=== PATIENT | female | born 1960 | race Caucasian/White ===

== ENCOUNTER 2018-08-05 16:17 | Outpatient (CLI) | payer OTHER, SELFPAY ==
[2018-08-05 18:17] LABS: CREATININE 0.98 mg/dL (0.55-1.02); Estimated GFR 58.71 (mL/min/1.73m2)
== END 2018-08-05 16:37 ==
PROVIDERS: PCP Nurse Practitioner Adult Health; Visit Provider Optometrist
DX: H57.8 Other specified disorders of eye and adnexa (principal)
CPT/HCPCS: 36415; 82565

== ENCOUNTER 2018-08-10 01:15 | Outpatient (CLI) | payer OTHER, SELFPAY ==
[2018-08-10] MEDS: Gadoterate meglumine 20 ML VIAL 19 ML IVP (09:10)
--- NOTE | 2018-08-10 09:40 | DI.MRI_ITS ---
SYMPTOM/DIAGNOSIS: VISUAL ACUITY, MARKED PROGRESSION VISUAL FIELD DEFECTS BRAIN AND ORBITAL MRI: High resolution multi planar imaging of the orbit was obtained and post contrast axial and coronal imaging was obtained along with high resolution sagittal, axial and coronal imaging of the orbital/sellar region. There is a lobulated mass which appears to arise in the region of the sella and which expands into the suprasellar region as well as into the sphenoid sinus. The mass measures approximately 39 by 34 by 37 mm. The mass is heterogeneous in appearance on T 2 and T 1 weighted imaging and enhances heterogeneously. The borders of the mass are fairly distinct although lobulated. The mass appears to significantly distort the region of the optic chiasm. No gross abnormality of the [place] vasculature flow void is seen. The orbits and orbital contents per say appear intact with no enhancing lesion seen. No enhancing lesion identified in the brain parenchyma. There is an apparent old infarction of the ster[place] just to the right of midline measuring about 5 mm. in diameter. Diffusion weighted imaging susceptibility weighted imaging is within normal limits. The temporal bone structures appear intact. No significant additional signal abnormality identified in the brain apart from apparent tiny bilateral lacunar infarcts. CONCLUSION: Large sellar mass extending into suprasellar region and sphenoid measuring up to about 39 mm. in diameter. 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 Other etiologies including atypical meningioma, metastasis, or craniopharyngioma not entirely excluded.
== END 2018-08-10 01:35 ==
PROVIDERS: PCP Nurse Practitioner Adult Health; Visit Provider Optometrist
DX: H53.40 Unspecified visual field defects (principal); H53.8 Other visual disturbances; G93.89 Other specified disorders of brain; D35.2 Benign neoplasm of pituitary gland
CPT/HCPCS: 70553; 70543

== ENCOUNTER 2018-08-11 08:38 | Outpatient (CLI) | payer OTHER, SELFPAY ==
[2018-08-11 10:30] LABS: FREE T4 0.73 ng/dL (0.76-1.46); TSH 3.86 uIU/mL (0.358-3.74)
[2018-08-11 22:41] LABS: Estradiol 105 pg/ml
[2018-08-12 10:09] LABS: FSH 30.1 mIU/ml
[2018-08-12 10:24] LABS: LH 7.9 mIU/ml
[2018-08-12 10:26] LABS: Prolactin 19.7 ng/ml
[2018-08-12 16:06] LABS: Growth Hormone 0.14 ng/mL
[2018-08-12 17:12] LABS: Adrenocorticotropic Hormone, P 9.9 pg/mL
[2018-08-18 09:30] LABS: IGF-1, LC/MS, S 126 ng/mL (37-208); Z-score 0.67 SD
== END 2018-08-11 08:58 ==
PROVIDERS: PCP Nurse Practitioner Adult Health; Visit Provider Neurological Surgery
DX: D35.2 Benign neoplasm of pituitary gland (principal)
CPT/HCPCS: 36415; 82533; 82024; 82670; 83001; 83002; 83003; 84146; 84305; 84439; 84443

== ENCOUNTER 2018-08-30 09:21 | Outpatient (CLI) | payer OTHER, SELFPAY ==
[2018-08-30 10:09] LABS: Sodium 139 mmol/L (136-145)
== END 2018-08-30 09:41 ==
PROVIDERS: PCP Nurse Practitioner Adult Health; Visit Provider Neurological Surgery
DX: D35.2 Benign neoplasm of pituitary gland (principal)
CPT/HCPCS: 36415; 84295

== ENCOUNTER 2018-09-02 21:36 | Emergency (ER) | payer OTHER, SELFPAY ==
[2018-09-02] VITALS (13 sets, daily range): BP systolic 152–228; BP diastolic 86–118; PULSE 72–97; RESP 16–26; TEMP 36.8–37.2; O2SAT 100
[2018-09-02 22:16] LABS: Abs Immature Grans 0.05 k/cumm (0.0-0.09); Absolute Lymphocyte Count 2.11 k/cumm (1.2-3.4); Basophils % 0.8; Eosinophils % 2.6; HCT 40.8 % (36.0-46.0); HGB 13.3 g/dL (12.0-15.5); Immature Grans % 0.4; Lymphocytes % 16.9; Mean Corp. HGB Concentration 32.6 g/dL (32.0-36.0); Mean Corpuscular Hemoglobin 28.6 pg (27.0-33.0); Mean Corpuscular Volume 87.7 fL (80-95); Mean Platelet Volume 10.4 fL (8.0-11.0); Monocytes % 6.6; Neutrophils % 72.7; Platelet Count 368 x1000/uL (130-400); RBC 4.65 m/cumm (4.00-5.20); RBC Distribution Width 13.8 % (11.7-14.6); White Blood Cell Count 12.51 k/cumm (4.4-10.8)
[2018-09-02 22:17] LABS: Absolute Eosinophil Count 0.33 k/cumm (0.0-0.7); Absolute Monocyte Count 0.83 k/cumm (0.11-0.7); Absolute Neutrophil Count 9.09 k/cumm (1.2-6.7)
[2018-09-02] MEDS: Labetalol 100 MG/20 ML VIAL 10 MG IVP (22:20)
[2018-09-02] MEDS: Oxymetazolone 0.05% SPRAY 15 ML BTL NS (22:21)
--- NOTE | 2018-09-02 22:26 | W.ED.GENAD ---
Discharge Plan Disposition Patient Disposition: HOME Condition: Good Discharge Details Chief Complaint: Epistaxis Clinical Impression: Acute anterior epistaxis Primary Care Provider: Marj Martinez ED Provider: Fortino Hurtado Home Meds and New Rx's Prescriptions: New amoxicillin-pot clavulanate [Augmentin] 875-125 mg tablet 1 tab PO BID Qty: 14 RF: 0 No Action multivitamin [Daily Vitamin] 1 EACH tablet 1 ea PO DAILY RF: 0 blood sugar diagnostic [Blood Glucose Test] 1 EACH strip 1 ea Miscellaneous AC & HS Qty: 300 RF: 3 lancets [FreeStyle Lancets] 1 EACH misc 1 ea Miscellaneous DAILY Qty: 100 RF: 0 CBD 10 mg PO d RF: 0 naproxen sodium [Aleve] 220 MG tablet 440 mg PO Q12H PRN RF: 0 losartan 50 MG tablet 50 mg PO DAILY Qty: 90 RF: 3 rosuvastatin [Crestor] 40 MG tablet 40 mg PO DAILY Qty: 90 RF: 3 bimatoprost 0.03 % Drops 1 drp OPHTHALMIC (EYE) QPM RF: 0 pseudoephedrine HCl 30 mg Tablet 30 mg PO QID PRNRF: 0 gabapentin 100 mg Capsule 200 mg PO BID RF: 0 hydrocortisone 10 mg Tablet 10 mg PO BID RF: 0 sodium chloride 0.65 % Aerosol,[place] 1 spray INTRANASAL PRN PRNRF: 0 levothyroxine 75 mcg Capsule 75 mcg PO DAILY RF: 0 vqtdgfwirj-cxavgqixiregn-hiyx [Fioricet] 50-300-40 mg Capsule 1 cap PO Q4H PRNRF: 0 Discharge Instructions Instructions: Nosebleed (ED) Additional Instructions: Please take the antibiotic as directed. Do not blow your nose. Do not remove the packing. If you notice any return of your bleeding present return immediately. Please come back to the emergency department for reassessment tomorrow afternoon. Please follow-up with your neurosurgeons as soon as possible for reassessment. If you notice any worsening of your symptoms, or any new symptoms such as vomiting, diarrhea, fever, chills, shortness of breath, chest pain, numbness, weakness, or fainting , please return immediately to the emergency department for reevaluation. Please follow up with your primary care provider as soon as possible for reassessment and reevaluation. As always, it was a pleasure participating in your medical care today. Referrals: Marj Martinez, SENIOR CLIENT ADVISOR [Primary Care Provider] - Medical Decision Making This is a 58-year-old female who presents today for evaluation of nosebleed. She had a pituitary tumor removed on 08/24/18 at [facility]. At 10 AM today she sneezed and roughly 4 hours after this she had continued bleeding from the right nare. She is on no blood thinners. Physical exam demonstrates bleeding slightly superior, and mildly anterior. No bleeding at the more obvious anterior inferior component. Bleeding is mild but continuous. Minimal blood in the posterior oropharynx. She is notably hypertensive. This may be a contributing component. We will give 10 of labetalol to help reduce her current blood pressure. I did contact Dr. Combs, at his personal cell phone number of [phone], and he is the neurosurgeon insulation estimator at the location where her surgery was performed. We discussed Rhino Rocket versus alternative medical management, and at this time he recommends starting with our medical management which will be Afrin, and topical cocaine. We will reassess after placement of these medical adjuncts. 11:38 PM We utilized multiple attempts of Afrin and topical cocaine, however in spite of all this the patient had no resolution of her symptoms. We discussed the situation again with Dr. Combs and his next recommendation after consulting with his ENT specialist is a small Rhino Rocket placement. I have placed this successfully with the patient with no complications or pain. He was advanced without any difficulty. She now has resolution of her bleeding. At this time I feel that with resolution of her bleeding, normal labs, she is safe for discharge home. I have recommended close follow-up here tomorrow for reevaluation since it is the weekend she will not be able to follow-up with her specialist. We will give 1 dose of Augmentin here, as well as Augmentin for home use. We discussed red flags for which to return and the patient understands. I have extensively reviewed the treatment plan and discharge instructions with the patient. I have addressed all patient concerns at this time. The patient was made aware of what symptoms to monitor for that would warrant a return to the emergency department. Discussed the plan with the patient, they demonstrate verbal understanding and agreement with our assessment and plan at this time. HPI General Date/Time Provider Initiated Documentation: 10/12/18 21:54. HPI Narrative: This is a pleasant 58-year-old female with a past medical history of hypertension, hyperlipidemia, and a pituitary adenoma that was surgically excised at [facility] on 08/24/18. Since then she has been doing very well however at 10 AM this morning patient states that she had a strong sneeze, and roughly 1-2 hours after that she has had a mild but continued nosebleed. The nose is been bleeding for the past 8 hours. She has no associated headache, vision changes, neck pain, numbness, tingling, weakness, dysphasia, dysarthria, or other neurologic complaint or abnormality. She is not on any blood thinners. She denies any pain in her head, nose, or nares. She denies any previous significant nosebleeds. She has no other complaints at this time. Related Data Home Medications Medication Instructions Recorded Confirmed multivitamin [Daily Vitamin] 1 ea PO DAILY 01/20/13 09/02/18 blood sugar diagnostic [Glucose #300 strip 06/28/17 Test Strip] lancets [Freestyle Lancets] #100 ea 06/28/17 Cbd 10 mg PO d 04/08/18 naproxen sodium [Aleve] 440 mg PO Q12H PRN tab-cap 04/08/18 09/02/18 losartan 50 mg PO DAILY #90 tab 07/11/18 09/02/18 rosuvastatin [Crestor] 40 mg PO DAILY #90 tab-cap 07/11/18 09/02/18 amoxicillin-pot clavulanate 1 tab PO BID #14 tab 09/02/18 [Augmentin] bimatoprost 1 drp OPHTHALMIC (EYE) QPM 09/02/18 09/02/18 aofuuibzge-idfcbyvfyrwtp-cdps 1 cap PO Q4H PRN 09/02/18 09/02/18 [Fioricet] gabapentin 200 mg PO BID 09/02/18 09/02/18 hydrocortisone 10 mg PO BID 09/02/18 09/02/18 levothyroxine 75 mcg PO DAILY 09/02/18 09/02/18 pseudoephedrine HCl 30 mg PO QID PRN 09/02/18 09/02/18 sodium chloride 1 spray INTRANASAL PRN PRN 09/02/18 09/02/18 Previous Rx's Medication Instructions Recorded losartan 50 mg PO DAILY #90 tab 07/11/18 rosuvastatin [Crestor] 40 mg PO DAILY #90 tab-cap 07/11/18 amoxicillin-pot clavulanate 1 tab PO BID #14 tab 09/02/18 [Augmentin] Allergies Allergy/AdvReac Type Severity Reaction Status Date / Time latex Allergy Mild Itching Unverified 09/02/18 21:49 lisinopril AdvReac Mild COUGH Unverified 09/02/18 21:49 atorvastatin AdvReac myalgias Unverified 09/02/18 21:49 General Stated Complaint: Epistaxis BRAD: 3 Review of Systems Review of Systems All systems reviewed & are unremarkable except as noted in HPI and below PFSH Family History Mother Hypertensive disorder, systemic arterial Diabetes Mental disorder Father No problems noted. Brother Personal history of malignant neoplasm Heart disease Grandfather No problems noted. Grandmother No problems noted. Paternal Grandmother No problems noted. Paternal Grandfather No problems noted. 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 Exam Narrative Exam Narrative: 1.Const: Well-nourished, Well-developed, appearing stated age 2.Eyes: PERRL, no conjunctival injection, and symmetrical lids. 3.ENT: Atraumatic external nose and ears. Moist MM. Neck: Symmetric, trachea midline, No thyromegaly. Patient's right nare demonstrates evidence of mild bleeding. No severe bleed at the anterior inferior aspect, some bleeding noted slightly superior, with minimal blood noted in the posterior oropharynx. Bleeding is mild at best, no significant or tao hemorrhage. No evidence of significant nasal abnormality otherwise aside for normals postsurgical changes. No hemotympanum. 4.CVS: +S1/S2, No murmurs or gallops. Peripheral pulses 2+ and equal in all extremities. Brisk capillary refill in all extremities. 5.RESP: Unlabored respiratory effort. Clear to auscultation bilaterally. No wheezes rales or rhonchi 6.GI: Soft, Nontender/Nondistended, No hepatosplenomegaly. No guarding or rebound. 7.MSK: Normocephalic/Atraumatic, Extremities w/o deformity or ttp No cyanosis or clubbing, Normal movement of all extremities 8.Skin: Warm, Dry. No rashes or lesions. 9.Neuro: four roll calender operator II-XII grossly intact. Sensation grossly intact, no focal neurologic deficits. No visual deficits, flores of vision, planes of are all intact. 10.Psych: (AAO) x3. Appropriate mood and affect Course Vital Signs Temperature 36.8 C 09/02/18 21:43 Pulse 97 H 09/02/18 21:43 Respiratory Rate 24 09/02/18 21:43 Blood Pressure 228/118 H 09/02/18 21:43 Pulse Oximetry 100 09/02/18 21:43 Temperature 36.8 C 09/02/18 21:43 Temperature Source Skin 09/02/18 21:43 Pulse 78 09/02/18 22:20 Respiratory Rate 24 09/02/18 21:43 Respiratory Effort Non-Labored 09/02/18 21:49 Blood Pressure 228/118 H 09/02/18 21:43 Blood Pressure Position Sitting 09/02/18 21:43 Pulse Oximetry 100 09/02/18 21:43 Oxygen Delivery Method Room Air 09/02/18 21:43 Oxygen Flow Rate 0 09/02/18 21:43 Lab/Test Results Lab/Test Results: Laboratory Tests Range/Units 09/02/18 22:10 WBC (4.4-10.8) k/cumm 12.51 H RBC (4.00-5.20) m/cumm 4.65 Hgb (12.0-15.5) g/dL 13.3 Hct (36.0-46.0) % 40.8 MCV (80-95) fL 87.7 MCH (27.0-33.0) pg 28.6 MCHC (32.0-36.0) g/dL 32.6 RDW (11.7-14.6) % 13.8 Plt Count (130-400) x1000/uL 368 MPV (8.0-11.0) fL 10.4 Immature Gran % 0.4 Neutrophils % 72.7 Lymphocytes % 16.9 Monocytes % 6.6 Eosinophils % 2.6 Basophils % 0.8 Absolute Neutrophils (1.2-6.7) k/cumm 9.09 H Absolute Lymphocytes (1.2-3.4) k/cumm 2.11 Absolute Monocytes (0.11-0.7) k/cumm 0.83 H Absolute Eosinophils (0.0-0.7) k/cumm 0.33 Absolute Basophils (0.0-0.2) k/cumm 0.10
[2018-09-02 22:29] LABS: Prothrombin Time 9.5 sec (9.3-10.8)
--- NOTE | 2018-09-02 22:32 | ED.GENADUL_ITS ---
Discharge Plan Disposition Patient Disposition: HOME Condition: Good Discharge Details Chief Complaint: Epistaxis Clinical Impression: Acute anterior epistaxis Primary Care Provider: Marj Martinez ED Provider: Fortino Hurtado Home Meds and New Rx's Prescriptions: New amoxicillin-pot clavulanate [Augmentin] 875-125 mg tablet 1 tab PO BID Qty: 14 RF: 0 No Action multivitamin [Daily Vitamin] 1 EACH tablet 1 ea PO DAILY RF: 0 blood sugar diagnostic [Blood Glucose Test] 1 EACH strip 1 ea Miscellaneous AC & HS Qty: 300 RF: 3 lancets [FreeStyle Lancets] 1 EACH misc 1 ea Miscellaneous DAILY Qty: 100 RF: 0 CBD 10 mg PO d RF: 0 naproxen sodium [Aleve] 220 MG tablet 440 mg PO Q12H PRN RF: 0 losartan 50 MG tablet 50 mg PO DAILY Qty: 90 RF: 3 rosuvastatin [Crestor] 40 MG tablet 40 mg PO DAILY Qty: 90 RF: 3 bimatoprost 0.03 % Drops 1 drp OPHTHALMIC (EYE) QPM RF: 0 pseudoephedrine HCl 30 mg Tablet 30 mg PO QID PRNRF: 0 gabapentin 100 mg Capsule 200 mg PO BID RF: 0 hydrocortisone 10 mg Tablet 10 mg PO BID RF: 0 sodium chloride 0.65 % Aerosol,[place] 1 spray INTRANASAL PRN PRNRF: 0 levothyroxine 75 mcg Capsule 75 mcg PO DAILY RF: 0 efizbpassv-udwwtteoitjrn-hccg [Fioricet] 50-300-40 mg Capsule 1 cap PO Q4H PRNRF: 0 Discharge Instructions Instructions: Nosebleed (ED) Additional Instructions: Please take the antibiotic as directed. Do not blow your nose. Do not remove the packing. If you notice any return of your bleeding present return immediately. Please come back to the emergency department for reassessment tomorrow afternoon. Please follow-up with your neurosurgeons as soon as possible for reassessment. If you notice any worsening of your symptoms, or any new symptoms such as vomiting, diarrhea, fever, chills, shortness of breath , chest pain, numbness, weakness, or fainting , please return immediately to the emergency department for reevaluation. Please follow up with your primary care provider as soon as possible for reassessment and reevaluation. As always, it was a pleasure participating in your medical care today. Referrals: Marj Martinez, SCHEME TECHNICIAN [Primary Care Provider] - Medical Decision Making This is a 58-year-old female who presents today for evaluation of nosebleed. She had a pituitary tumor removed on 08/24/18 at [facility]. At 10 AM today she sneezed and roughly 4 hours after this she had continued bleeding from the right nare. She is on no blood thinners. Physical exam demonstrates bleeding slightly superior, and mildly anterior. No bleeding at the more obvious anterior inferior component. Bleeding is mild but continuous. Minimal blood in the posterior oropharynx. She is notably hypertensive. This may be a contributing component. We will give 10 of labetalol to help reduce her current blood pressure. I did contact Dr. Combs, at his personal cell phone number of [phone], and he is the neurosurgeon street contractor at the location where her surgery was performed. We discussed Rhino Rocket versus alternative medical management, and at this time he recommends starting with our medical management which will be Afrin, and topical cocaine. We will reassess after placement of these medical adjuncts. 11:38 PM We utilized multiple attempts of Afrin and topical cocaine, however in spite of all this the patient had no resolution of her symptoms. We discussed the situation again with Dr. Combs and his next recommendation after consulting with his ENT specialist is a small Rhino Rocket placement. I have placed this successfully with the patient with no complications or pain. He was advanced without any difficulty. She now has resolution of her bleeding. At this time I feel that with resolution of her bleeding, normal labs, she is safe for discharge home. I have recommended close follow-up here tomorrow for reevaluation since it is the weekend she will not be able to follow-up with her specialist. We will give 1 dose of Augmentin here, as well as Augmentin for home use. We discussed red flags for which to return and the patient understands. I have extensively reviewed the treatment plan and discharge instructions with the patient. I have addressed all patient concerns at this time. The patient was made aware of what symptoms to monitor for that would warrant a return to the emergency department. Discussed the plan with the patient, they demonstrate verbal understanding and agreement with our assessment and plan at this time. HPI General Date/Time Provider Initiated Documentation: 10/12/18 21:54 . HPI Narrative: This is a pleasant 58-year-old female with a past medical history of hypertension, hyperlipidemia, and a pituitary adenoma that was surgically excised at [facility] on 08/24/18. Since then she has been doing very well however at 10 AM this morning patient states that she had a strong sneeze, and roughly 1-2 hours after that she has had a mild but continued nosebleed. The nose is been bleeding for the past 8 hours. She has no associated headache, vision changes, neck pain, numbness, tingling, weakness , dysphasia, dysarthria, or other neurologic complaint or abnormality. She is not on any blood thinners. She denies any pain in her head, nose, or nares. She denies any previous significant nosebleeds. She has no other complaints at this time. Related Data Home Medications Medication Instructions Recorded Confirmed multivitamin [Daily Vitamin] 1 ea PO DAILY 01/20/13 09/02/18 blood sugar diagnostic [Glucose #300 strip 06/28/17 Test Strip] lancets [Freestyle Lancets] #100 ea 06/28/17 Cbd 10 mg PO d 04/08/18 naproxen sodium [Aleve] 440 mg PO Q12H PRN tab-cap 04/08/18 09/02/18 losartan 50 mg PO DAILY #90 tab 07/11/18 09/02/18 rosuvastatin [Crestor] 40 mg PO DAILY #90 tab-cap 07/11/18 09/02/18 amoxicillin-pot clavulanate 1 tab PO BID #14 tab 09/02/18 [Augmentin] bimatoprost 1 drp OPHTHALMIC (EYE) QPM 09/02/18 09/02/18 vtsojqabfu-bujwxztowhaoz-xijx 1 cap PO Q4H PRN 09/02/18 09/02/18 [Fioricet] gabapentin 200 mg PO BID 09/02/18 09/02/18 hydrocortisone 10 mg PO BID 09/02/18 09/02/18 levothyroxine 75 mcg PO DAILY 09/02/18 09/02/18 pseudoephedrine HCl 30 mg PO QID PRN 09/02/18 09/02/18 sodium chloride 1 spray INTRANASAL PRN PRN 09/02/18 09/02/18 Previous Rx's Medication Instructions Recorded losartan 50 mg PO DAILY #90 tab 07/11/18 rosuvastatin [Crestor] 40 mg PO DAILY #90 tab-cap 07/11/18 amoxicillin-pot clavulanate 1 tab PO BID #14 tab 09/02/18 [Augmentin] Allergies Allergy/AdvReac Type Severity Reaction Status Date / Time latex Allergy Mild Itching Unverified 09/02/18 21:49 lisinopril AdvReac Mild COUGH Unverified 09/02/18 21:49 atorvastatin AdvReac myalgias Unverified 09/02/18 21:49 General Stated Complaint: Epistaxis BRAD: 3 Review of Systems Review of Systems All systems reviewed & are unremarkable except as noted in HPI and below PFSH Family History Mother Hypertensive disorder, systemic arterial Diabetes Mental disorder Father No problems noted. Brother Personal history of malignant neoplasm Heart disease Grandfather No problems noted. Grandmother No problems noted. Paternal Grandmother No problems noted. Paternal Grandfather No problems noted. 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 Exam Narrative Exam Narrative: 1.Const: Well-nourished, Well-developed, appearing stated age 2.Eyes: PERRL, no conjunctival injection, and symmetrical lids. 3.ENT: Atraumatic external nose and ears. Moist MM. Neck: Symmetric, trachea midline, No thyromegaly. Patient's right nare demonstrates evidence of mild bleeding. No severe bleed at the anterior inferior aspect, some bleeding noted slightly superior, with minimal blood noted in the posterior oropharynx. Bleeding is mild at best, no significant or tao hemorrhage. No evidence of significant nasal abnormality otherwise aside for normals postsurgical changes. No hemotympanum. 4.CVS: +S1/S2, No murmurs or gallops. Peripheral pulses 2+ and equal in all extremities. Brisk capillary refill in all extremities. 5.RESP: Unlabored respiratory effort. Clear to auscultation bilaterally. No wheezes rales or rhonchi 6.GI: Soft, Nontender/Nondistended, No hepatosplenomegaly. No guarding or rebound. 7.MSK: Normocephalic/Atraumatic, Extremities w/o deformity or ttp No cyanosis or clubbing, Normal movement of all extremities 8.Skin: Warm, Dry. No rashes or lesions. 9.Neuro: orthotist II-XII grossly intact. Sensation grossly intact, no focal neurologic deficits. No visual deficits, flores of vision, planes of are all intact. 10.Psych: (AAO) x3. Appropriate mood and affect Course Vital Signs Temperature 36.8 C 09/02/18 21:43 Pulse 97 H 09/02/18 21:43 Respiratory Rate 24 09/02/18 21:43 Blood Pressure 228/118 H 09/02/18 21:43 Pulse Oximetry 100 09/02/18 21:43 Temperature 36.8 C 09/02/18 21:43 Temperature Source Skin 09/02/18 21:43 Pulse 78 09/02/18 22:20 Respiratory Rate 24 09/02/18 21:43 Respiratory Effort Non-Labored 09/02/18 21:49 Blood Pressure 228/118 H 09/02/18 21:43 Blood Pressure Position Sitting 09/02/18 21:43 Pulse Oximetry 100 09/02/18 21:43 Oxygen Delivery Method Room Air 09/02/18 21:43 Oxygen Flow Rate 0 09/02/18 21:43 Lab/Test Results Lab/Test Results: Laboratory Tests Range/Units 09/02/18 22:10 WBC (4.4-10.8) k/cumm 12.51 H RBC (4.00-5.20) m/cumm 4.65 Hgb (12.0-15.5) g/dL 13.3 Hct (36.0-46.0) % 40.8 MCV (80-95) fL 87.7 MCH (27.0-33.0) pg 28.6 MCHC (32.0-36.0) g/dL 32.6 RDW (11.7-14.6) % 13.8 Plt Count (130-400) x1000/uL 368 MPV (8.0-11.0) fL 10.4 Immature Gran % 0.4 Neutrophils % 72.7 Lymphocytes % 16.9 Monocytes % 6.6 Eosinophils % 2.6 Basophils % 0.8 Absolute Neutrophils (1.2-6.7) k/cumm 9.09 H Absolute Lymphocytes (1.2-3.4) k/cumm 2.11 Absolute Monocytes (0.11-0.7) k/cumm 0.83 H Absolute Eosinophils (0.0-0.7) k/cumm 0.33 Absolute Basophils (0.0-0.2) k/cumm 0.10
[2018-09-02 22:43] LABS: ALT 20 U/L (12-78); AST 17 U/L (15-37); Albumin 3.9 g/dL (3.4-5.0); Alkaline Phosphatase 168 U/L (46-116); Anion Gap 10.8 mmol/L (3-11); BUN 21 mg/dL (7-18); Bilirubin, Total 0.2 mg/dL (0.2-1.0); CO2 30.2 mmol/L (21.0-32.0); Calcium 9.4 mg/dL (8.5-10.1); Chloride 99 mmol/L (98-107); Glucose 169 mg/dL (70-100); Potassium 3.9 mmol/L (3.5-5.1); Sodium 140 mmol/L (136-145); Total Protein 8.5 g/dL (6.4-8.2)
[2018-09-02] MEDS: Amoxicillin 875/Clav. 125 TAB PO (23:48)
== END 2018-09-03 00:01 | disposition home or self-care (01) ==
PROVIDERS: Emergency Provider Student in an Organized Health Care Education/Training Program; PCP Nurse Practitioner Adult Health
DX: R04.0 Epistaxis (principal); I10 Essential (primary) hypertension; E11.9 Type 2 diabetes mellitus without complications
CPT/HCPCS: 30901; 36415; 80053; 96374; 99284; 85025; 85610; 85730

== ENCOUNTER 2018-09-28 11:42 | Outpatient (CLI) | payer OTHER, SELFPAY ==
[2018-09-28 13:38] LABS: FREE T4 0.84 ng/dL (0.76-1.46); TSH 3.03 uIU/mL (0.358-3.74)
[2018-09-28 21:58] LABS: Estradiol 14 pg/ml
[2018-09-29 09:55] LABS: LH 9.6 mIU/ml
[2018-09-29 10:00] LABS: FSH 18.8 mIU/ml
[2018-09-29 10:31] LABS: Prolactin 13.4 ng/ml
[2018-09-29 16:01] LABS: Growth Hormone 0.13 ng/mL
[2018-09-29 18:09] LABS: Adrenocorticotropic Hormone, P 9.5 pg/mL
[2018-10-01 16:02] LABS: Testosterone, Total 11 ng/dL (8-60)
== END 2018-09-28 12:02 ==
PROVIDERS: PCP Nurse Practitioner Adult Health; Visit Provider Neurological Surgery
DX: D35.2 Benign neoplasm of pituitary gland (principal)
CPT/HCPCS: 36415; 82533; 83519; 84403; 82024; 82670; 83001; 83002; 83003; 84146; 84439; 84443

== ENCOUNTER 2019-02-24 02:54 | Outpatient (CLI) | payer OTHER, SELFPAY ==
[2019-02-24 10:58] LABS: Bilirubin Negative (Negative); Blood Trace-intact (Negative); Clarity Clear; Glucose Negative (Negative); Ketones Negative (Negative); Leukocyte Esterase Negative (Negative); Nitrite Negative (Negative); Urobilinogen 0.2 EU/dL (Up TO 0.2)
[2019-02-24 11:14] LABS: Anion Gap 10.8 mmol/L (3-11); BUN 17 mg/dL (7-18); Bacteria Negative HPF (Negative); CO2 28.2 mmol/L (21.0-32.0); CREATININE 0.84 mg/dL (0.55-1.02); Calcium 9.6 mg/dL (8.5-10.1); Chloride 99 mmol/L (98-107); Cholesterol 178 mg/dL (50-200); Crystals Negative HPF (Negative); Epithelial Cells Few HPF (Negative); Glucose 173 mg/dL (70-100); HDL Cholesterol 60 mg/dL (40-60); LDL CHOLESTEROL 88 mg/dL (<100); Potassium 4.2 mmol/L (3.5-5.1); Sodium 138 mmol/L (136-145); Triglyceride 137 mg/dL (30-150)
[2019-02-24 11:15] LABS: Hemoglobin A1C 8.1 % (4.5-6.2)
[2019-02-24 11:15] LABS: C & S Indicated? Yes; Casts Negative LPF (Negative); Mucus Trace (Negative)
[2019-02-24 11:24] LABS: COMMENT (LAB VIEW ONLY) 149.53 mg/dL; Microalb ug/mg Crea 178.5 ug/mg Cr
[2019-02-24 14:19] LABS: FREE T4 0.93 ng/dL (0.76-1.46)
[2019-02-24 17:03] LABS: Estradiol 12 pg/ml
[2019-02-25 14:44] LABS: Growth Hormone 0.39 ng/mL
[2019-02-25 15:26] LABS: Adrenocorticotropic Hormone, P 12 pg/mL
[2019-02-27 11:31] LABS: LH 7.7 mIU/ml; Prolactin 12.5 ng/ml
[2019-02-28 15:40] LABS: IGF-1, LC/MS, S 262 ng/mL (37-208); Z-score 2.33 SD
== END 2019-02-24 03:14 ==
PROVIDERS: PCP Nurse Practitioner Adult Health; Referring Provider Neurological Surgery; Visit Provider Nurse Practitioner Adult Health
DX: I10 Essential (primary) hypertension (principal); E11.9 Type 2 diabetes mellitus without complications; E78.5 Hyperlipidemia, unspecified; N39.41 Urge incontinence; D35.2 Benign neoplasm of pituitary gland; D35.3 Benign neoplasm of craniopharyngeal duct
CPT/HCPCS: 36415; 80048; 80061; 82533; 83721; 81003; 81015; 82024; 82043; 82570; 82670; 83001; 83002; 83003; 83036; 84146; 84305; 84439; 84443; 87086

== ENCOUNTER 2019-03-23 00:37 | Outpatient (CLI) | payer OTHER, SELFPAY ==
[2019-03-23] MEDS: Gadoterate meglumine 20 ML VIAL 19 ML IVP (15:15)
[2019-03-23] MEDS: Normal Saline Flush 10 ML SYR IVP (15:16)
--- NOTE | 2019-03-23 15:36 | DI.MRI_ITS ---
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 The patient has reportedly had resection of a previously described mass involving the pituitary and craniopharyngeal duct region. Comparison with previous MR of 08/10/18 shows resection of the bulk of the tumor. There is some residual contrast enhancement in the posterior sphenoid region, which is nonspecific and which may represent postsurgical change. No definite recurrent tumor seen. The pituitary stalk appears intact. No enhancing lesion identified in the brain. 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 Orbital structures appear intact. Temporal bone structures appear intact. CONCLUSION: Postsurgical findings as described above following reported resection of pituitary/craniopharyngeal duct mass. Thin rind of enhancing tissue at the resection site is nonspecific. Localized persistent or recurrent tumor not excluded. Appropriate follow-up studies requested.
== END 2019-03-23 00:57 ==
PROVIDERS: PCP Nurse Practitioner Adult Health; Visit Provider Neurological Surgery
DX: D35.2 Benign neoplasm of pituitary gland (principal); D35.3 Benign neoplasm of craniopharyngeal duct; Z98.890 Other specified postprocedural states
CPT/HCPCS: 70553

== ENCOUNTER 2019-05-07 06:52 | Emergency (ER) | payer OTHER, SELFPAY ==
[2019-05-07] VITALS (28 sets, daily range): BP systolic 112–144; BP diastolic 56–105; PULSE 77–97; RESP 16–32; TEMP 36.6; O2SAT 92–99
--- NOTE | 2019-05-07 07:03 | DI.CT_ITS ---
SYMPTOM/DIAGNOSIS: SOB, INFECTION, R/O PE CHEST CT FOR PULMONARY EMBOLISM: CT angiography was performed with multi slice acquisition and multi planar and 3D reconstruction. There is no evidence of pulmonary emboli or aortic dissection. The heart size is normal. Coronary artery calcifications are visible. There are no pleural or pericardial effusions or evidence of infiltrate. Degenerative changes are seen in the thoracic spine. IMPRESSION: No acute abnormality.
--- NOTE | 2019-05-07 07:03 | DI.RAD_ITS ---
SYMPTOM/DIAGNOSIS: CELLULITIS, R/O OSTEO RIGHT FOOT: Gauze is present over the toes. No fracture or dislocation is seen. There are no gross bony erosions to suggest osteomyelitis. Degenerative changes are noted at the first MTP joint. Heel spur is also seen. IMPRESSION: No plain film evidence of osteomyelitis.
--- NOTE | 2019-05-07 07:22 | NUR.NOTE ---
Nursing Note: Pt reports LLQ ABD pain. Pain started Wednesday night that has since subsided. made aware.
--- NOTE | 2019-05-07 07:33 | NUR.NOTE ---
Nursing Note: Additional IV obtained in the left AC with an 18G catheter for CTA.
[2019-05-07] MEDS: Normal Saline 1,000 ML 1000 ML IV (07:34)
[2019-05-07 07:35] LABS: Abs Immature Grans 0.08 k/cumm (0.0-0.09); Basophils % 0.2; HCT 37.2 % (36.0-46.0); HGB 12.9 g/dL (12.0-15.5); Immature Grans % 0.4; Lymphocytes % 8.8; Mean Corp. HGB Concentration 34.7 g/dL (32.0-36.0); Mean Corpuscular Volume 80.9 fL (80-95); Mean Platelet Volume 11.1 fL (8.0-11.0); Monocytes % 9.9; Neutrophils % 80.7; Platelet Count 205 x1000/uL (130-400); RBC Distribution Width 13.3 % (11.7-14.6); White Blood Cell Count 18.17 k/cumm (4.4-10.8)
[2019-05-07 07:37] LABS: Absolute Basophil Count 0.04 k/cumm (0.0-0.2); Absolute Neutrophil Count 14.66 k/cumm (1.2-6.7)
[2019-05-07 07:51] LABS: INR 1.1 (0.9-1.1); PTT Activated 36.5 sec (21.0-31.4); Prothrombin Time 10.7 sec (9.3-11.0)
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
[2019-05-07 07:54] LABS: ALT 11 U/L (12-78); AST 35 U/L (15-37); Albumin 3.3 g/dL (3.4-5.0); Alkaline Phosphatase 110 U/L (46-116); Anion Gap 16.1 mmol/L (3-11); BUN 15 mg/dL (7-18); Bilirubin, Total 1.2 mg/dL (0.2-1.0); CO2 21.9 mmol/L (21.0-32.0); CREATININE 0.87 mg/dL (0.55-1.02); Calcium 9.2 mg/dL (8.5-10.1); Chloride 93 mmol/L (98-107); Glucose 201 mg/dL (70-100); NT-proBNP 3575 pg/mL; Potassium 3.1 mmol/L (3.5-5.1); Sodium 131 mmol/L (136-145); Total Protein 8.4 g/dL (6.4-8.2)
[2019-05-07 07:58] LABS: Troponin I 3.49 ng/mL (0.00-0.06)
[2019-05-07 08:23] LABS: Magnesium 1.6 mg/dL (1.8-2.4)
[2019-05-07] MEDS: Omnipaque 350 MG/ML 100 ML BTL IV (08:39)
--- NOTE | 2019-05-07 08:47 | DI.VRAD_ITS ---
EXAM: CT Angiography Chest With Contrast EXAM DATE/TIME: 05/07/2019 7:07 AM CLINICAL HISTORY: 59 years old, female; Signs and symptoms; Shortness of breath TECHNIQUE: Imaging protocol: Axial computed tomographic angiography images of the chest with intravenous contrast using CT angiography protocol. Coronal and sagittal reformatted images were created and reviewed. 3D rendering: MIP reconstructed images were created and reviewed. COMPARISON: No relevant prior studies available. FINDINGS: No evidence of pulmonary embolism. Normal thoracic aorta without aneurysm or dissection. No airspace consolidation, pleural effusion or pneumothorax. There is right perinephric stranding. No fracture. IMPRESSION: No evidence of pulmonary embolism. Stranding around the visualized right kidney. Consider followup ultrasound or abdominal CT if indicated. Dictated and Authenticated by: Eduardo Bernal MD. Ordering:TREVON Freitas MD
--- NOTE | 2019-05-07 08:59 | DI.VRAD_ITS ---
EXAM: XR Right Foot Complete EXAM DATE/TIME: 05/07/2019 8:37 AM CLINICAL HISTORY: 59 years old, female; Signs and symptoms; Other: Cellulitis, R/O osteo TECHNIQUE: Imaging protocol: XR Right foot. Views: 3 or more views. COMPARISON: No relevant prior studies available. FINDINGS: There is dorsal soft tissue swelling. No acute fracture or dislocation. No evidence of osteomyelitis. There is a plantar calcaneal spur. IMPRESSION: Dorsal cellulitis. No evidence of osteomyelitis. Dictated and Authenticated by: Eduardo Bernal MD. Ordering:TREVON Freitas MD
[2019-05-07] MEDS: Aspirin 325 MG TAB PO (09:00)
[2019-05-07 09:02] LABS: Lactate-non-spesis 1.1 mmol/l (0.6-1.4)
[2019-05-07] MEDS: Heparin 5,000 UNITS/ML VIAL 6200 UNITS IV (09:06)
[2019-05-07] MEDS: VANCOMYCIN 2,000 MG in Normal Saline 500 ML 250 MG IVPB (09:39)
--- NOTE | 2019-05-07 09:40 | NUR.NOTE ---
Nursing Note: Per Verbal order from MD Diamond. Start Vanco and hold Potassium and Mag until antibiotic is complete.
[2019-05-07 10:02] LABS: Bilirubin Negative (Negative); Blood Trace-intact (Negative); Clarity Clear; Glucose Negative (Negative); Ketones 15 mg/dL (Negative); Leukocyte Esterase Negative (Negative); Nitrite Negative (Negative); Urobilinogen 0.2 EU/dL (Up TO 0.2)
[2019-05-07 10:24] LABS: Epithelial Cells Moderate HPF (Negative); Other Cells Rare Renal (Negative); RBC 0-2 (0-2)
[2019-05-07 10:25] LABS: Bacteria Moderate HPF (Negative); C & S Indicated? Yes; Casts Negative LPF (Negative); Crystals Negative HPF (Negative); Mucus Negative (Negative)
--- NOTE | 2019-05-07 10:42 | NUR.NOTE ---
Nursing Note: Pt report called to Manjula CARDOZO at [phone]
--- NOTE | 2019-05-09 11:12 | NUR.NOTE ---
Urine culture report faxed to NEYMAR Cardenas 4, .Nursing Note:
== END 2019-05-07 10:31 ==
PROVIDERS: Student in an Organized Health Care Education/Training Program; Emergency Provider Student in an Organized Health Care Education/Training Program; PCP Nurse Practitioner Adult Health
DX: I21.4 Non-ST elevation (NSTEMI) myocardial infarction (principal); R06.02 Shortness of breath; L03.115 Cellulitis of right lower limb; I10 Essential (primary) hypertension; E11.9 Type 2 diabetes mellitus without complications
CPT/HCPCS: 36415; 71275; 80053; 87040; 93005; 96361; 96365; 96368; 99291; 73630; 81003; 81015; 83605; 83735; 83880; 84443; 84484; 85025; 85610; 85730; 87086; 93010; J0690; J1644; J3490

== ENCOUNTER 2019-05-22 12:38 | Outpatient (REF) | payer OTHER, SELFPAY ==
[2019-05-22 14:08] LABS: Hemoglobin A1C 7.1 % (4.5-6.2)
[2019-05-22 14:09] LABS: Abs Immature Grans 0.02 k/cumm (0.0-0.09); Absolute Eosinophil Count 0.14 k/cumm (0.0-0.7); Absolute Lymphocyte Count 2.03 k/cumm (1.2-3.4); Absolute Monocyte Count 0.55 k/cumm (0.11-0.7); Absolute Neutrophil Count 3.86 k/cumm (1.2-6.7); Basophils % 1.5; C-Reactive Protein 0.28 mg/dL (0.0-0.3); CREATININE 0.83 mg/dL (0.55-1.02); Eosinophils % 2.1; HCT 27.4 % (36.0-46.0); HGB 8.6 g/dL (12.0-15.5); Immature Grans % 0.3; Lymphocytes % 30.3; Mean Corp. HGB Concentration 31.4 g/dL (32.0-36.0); Mean Corpuscular Hemoglobin 27.7 pg (27.0-33.0); Mean Corpuscular Volume 88.1 fL (80-95); Mean Platelet Volume 11.4 fL (8.0-11.0); Monocytes % 8.2; Neutrophils % 57.6; RBC 3.11 m/cumm (4.00-5.20); RBC Distribution Width 14.4 % (11.7-14.6)
[2019-05-22 14:33] LABS: Diff Comment RBC Morph Reviewed; Hypochromasia 1+; Platelet Count 325 x1000/uL (130-400)
[2019-05-22 14:34] LABS: Microcytosis 1+; Polychromasia Present
[2019-05-22 14:56] LABS: ESR 101 MM/HR (0-30)
== END 2019-05-22 12:58 ==
LOC: LBN 12:38
PROVIDERS: PCP Nurse Practitioner Adult Health; Visit Provider Family Medicine
DX: E11.59 Type 2 diabetes mellitus with other circulatory complications (principal); I21.4 Non-ST elevation (NSTEMI) myocardial infarction; A41.9 Sepsis, unspecified organism; M86.9 Osteomyelitis, unspecified
CPT/HCPCS: 85652; 82565; 83036; 85025; 86140

== ENCOUNTER 2019-05-29 12:05 | Outpatient (REF) | payer OTHER, SELFPAY ==
[2019-05-29 13:00] LABS: Abs Immature Grans 0.01 k/cumm (0.0-0.09); Absolute Basophil Count 0.06 k/cumm (0.0-0.2); Absolute Lymphocyte Count 1.45 k/cumm (1.2-3.4); Absolute Neutrophil Count 2.74 k/cumm (1.2-6.7); Basophils % 1.3; Eosinophils % 4.2; HCT 28.6 % (36.0-46.0); Immature Grans % 0.2; Lymphocytes % 30.5; Mean Corp. HGB Concentration 31.5 g/dL (32.0-36.0); Mean Corpuscular Hemoglobin 27.4 pg (27.0-33.0); Mean Corpuscular Volume 87.2 fL (80-95); Mean Platelet Volume 11.5 fL (8.0-11.0); Monocytes % 6.3; Neutrophils % 57.5; Platelet Count 298 x1000/uL (130-400); RBC 3.28 m/cumm (4.00-5.20); RBC Distribution Width 14.2 % (11.7-14.6); White Blood Cell Count 4.76 k/cumm (4.4-10.8)
[2019-05-29 13:27] LABS: Anisocytosis 1+; Diff Comment RBC Morph Reviewed; Hypochromasia 1+
[2019-05-29 14:21] LABS: ESR 76 MM/HR (0-30)
== END 2019-05-29 12:25 ==
LOC: LBN 12:05
PROVIDERS: PCP Nurse Practitioner Adult Health; Visit Provider Family Medicine
DX: I25.10 Atherosclerotic heart disease of native coronary artery without angina pectoris (principal); A41.9 Sepsis, unspecified organism; M86.9 Osteomyelitis, unspecified
CPT/HCPCS: 85652; 82565; 85025; 86140

== ENCOUNTER 2019-06-05 16:14 | Outpatient (REF) | payer OTHER, SELFPAY ==
[2019-06-05 14:40] LABS: Abs Immature Grans 0.01 k/cumm (0.0-0.09); Absolute Eosinophil Count 0.35 k/cumm (0.0-0.7); Absolute Lymphocyte Count 1.46 k/cumm (1.2-3.4); Absolute Monocyte Count 0.48 k/cumm (0.11-0.7); Absolute Neutrophil Count 3.23 k/cumm (1.2-6.7); Basophils % 1.8; Eosinophils % 6.2; HCT 29.8 % (36.0-46.0); HGB 9.6 g/dL (12.0-15.5); Immature Grans % 0.2; Lymphocytes % 25.9; Mean Corp. HGB Concentration 32.2 g/dL (32.0-36.0); Mean Corpuscular Hemoglobin 27.7 pg (27.0-33.0); Mean Corpuscular Volume 85.9 fL (80-95); Mean Platelet Volume 11.5 fL (8.0-11.0); Monocytes % 8.5; Neutrophils % 57.4; Platelet Count 197 x1000/uL (130-400); RBC 3.47 m/cumm (4.00-5.20); RBC Distribution Width 13.9 % (11.7-14.6); White Blood Cell Count 5.63 k/cumm (4.4-10.8)
[2019-06-05 14:52] LABS: C-Reactive Protein 0.11 mg/dL (0.0-0.3)
[2019-06-05 15:12] LABS: Diff Comment RBC Morph Reviewed
[2019-06-05 15:13] LABS: Microcytosis 1+; Polychromasia Present
[2019-06-05 15:44] LABS: ESR 58 MM/HR (0-30)
== END 2019-06-05 16:34 ==
LOC: LBN 16:14
PROVIDERS: PCP Nurse Practitioner Adult Health; Visit Provider Family Medicine
DX: D50.0 Iron deficiency anemia secondary to blood loss (chronic) (principal); A40.0 Sepsis due to streptococcus, group A; E11.621 Type 2 diabetes mellitus with foot ulcer
CPT/HCPCS: 85652; 82565; 85025; 86140

== ENCOUNTER 2019-06-12 16:18 | Outpatient (REF) | payer OTHER, SELFPAY ==
[2019-06-12 14:12] LABS: Abs Immature Grans 0.02 k/cumm (0.0-0.09); Absolute Basophil Count 0.08 k/cumm (0.0-0.2); Absolute Eosinophil Count 0.24 k/cumm (0.0-0.7); Absolute Lymphocyte Count 1.59 k/cumm (1.2-3.4); Absolute Monocyte Count 0.59 k/cumm (0.11-0.7); Absolute Neutrophil Count 3.88 k/cumm (1.2-6.7); Basophils % 1.3; Eosinophils % 3.8; HCT 30.6 % (36.0-46.0); HGB 9.8 g/dL (12.0-15.5); Immature Grans % 0.3; Lymphocytes % 24.8; Mean Corpuscular Volume 84.3 fL (80-95); Mean Platelet Volume 11.6 fL (8.0-11.0); Monocytes % 9.2; Neutrophils % 60.6; Platelet Count 247 x1000/uL (130-400); RBC 3.63 m/cumm (4.00-5.20); RBC Distribution Width 13.8 % (11.7-14.6)
[2019-06-12 14:16] LABS: C-Reactive Protein 0.18 mg/dL (0.0-0.3); CREATININE 0.76 mg/dL (0.55-1.02)
[2019-06-12 14:40] LABS: Diff Comment RBC Morph Reviewed; RBC Morphology Normal
[2019-06-12 15:25] LABS: ESR 54 mm/hr (0-30)
== END 2019-06-12 16:38 ==
LOC: LBN 16:18
PROVIDERS: PCP Nurse Practitioner Adult Health; Visit Provider Family Medicine
DX: E11.621 Type 2 diabetes mellitus with foot ulcer (principal); M86.171 Other acute osteomyelitis, right ankle and foot; A40.0 Sepsis due to streptococcus, group A; I10 Essential (primary) hypertension
CPT/HCPCS: 85652; 82565; 85025; 86140

== ENCOUNTER 2019-07-12 16:28 | Outpatient (REF) | payer OTHER, SELFPAY | END 2019-07-12 16:48 | LOC: LBN 16:28 | PROVIDERS: PCP Nurse Practitioner Adult Health; Visit Provider Student in an Organized Health Care Education/Training Program | DX: B37.3 Candidiasis of vulva and vagina (principal) | CPT/HCPCS: 87480; 87510; 87660 ==

== ENCOUNTER 2019-08-09 12:35 | Outpatient (REF) | payer OTHER, SELFPAY ==
[2019-08-09 13:03] LABS: Anion Gap 12.3 mmol/L (3-11); BUN 15 mg/dL (7-18); CO2 26.7 mmol/L (21.0-32.0); CREATININE 0.76 mg/dL (0.55-1.02); Calcium 9.3 mg/dL (8.5-10.1); Chloride 100 mmol/L (98-107); Glucose 152 mg/dL (70-100); Potassium 4.1 mmol/L (3.5-5.1); Sodium 139 mmol/L (136-145)
== END 2019-08-09 12:55 ==
LOC: LBN 12:35
PROVIDERS: PCP Nurse Practitioner Adult Health; Visit Provider Family Medicine
DX: I25.119 Atherosclerotic heart disease of native coronary artery with unspecified angina pectoris (principal)
CPT/HCPCS: 80048

== ENCOUNTER 2019-08-21 08:00 | Outpatient (RCR) | payer OTHER, SELFPAY | END 2019-08-21 23:59 | disposition home or self-care (01) | LOC: CR 08:00 | PROVIDERS: PCP Nurse Practitioner Adult Health; Visit Provider Family Medicine | DX: I25.2 Old myocardial infarction (principal); Z51.89 Encounter for other specified aftercare | CPT/HCPCS: S9472 ==

== ENCOUNTER 2019-09-14 08:58 | Outpatient (CLI) | payer OTHER, SELFPAY | END 2019-09-14 09:18 | PROVIDERS: PCP Nurse Practitioner Adult Health; Visit Provider Internal Medicine Cardiovascular Disease | DX: I25.10 Atherosclerotic heart disease of native coronary artery without angina pectoris (principal); E11.9 Type 2 diabetes mellitus without complications; E78.5 Hyperlipidemia, unspecified | CPT/HCPCS: 93005; 93010 ==

== ENCOUNTER 2019-09-20 11:42 | Outpatient (RCR) | payer OTHER, SELFPAY | END 2019-09-21 23:59 | disposition home or self-care (01) | LOC: CR 11:42 | PROVIDERS: PCP Nurse Practitioner Adult Health; Visit Provider Family Medicine | DX: I25.2 Old myocardial infarction (principal); Z51.89 Encounter for other specified aftercare | CPT/HCPCS: S9472 ==

== ENCOUNTER 2019-10-11 07:41 | Outpatient (CLI) | payer OTHER, SELFPAY ==
[2019-10-11 07:54] LABS: HCT 37.8 % (36.0-46.0); HGB 11.5 g/dL (12.0-15.5); Mean Corp. HGB Concentration 30.4 g/dL (32.0-36.0); Mean Corpuscular Hemoglobin 23.2 pg (27.0-33.0); Mean Corpuscular Volume 76.4 fL (80-95); Mean Platelet Volume 10.4 fL (8.0-11.0); Platelet Count 333 x1000/uL (130-400); RBC 4.95 m/cumm (4.00-5.20); RBC Distribution Width 18.2 % (11.7-14.6); White Blood Cell Count 7.45 k/cumm (4.4-10.8)
[2019-10-11 08:15] LABS: Hemoglobin A1C 6.9 % (4.5-6.2)
[2019-10-11 09:04] LABS: BUN 20 mg/dL (7-18); Calcium 9.3 mg/dL (8.5-10.1); Calculated LDL 82 mg/dL; Chloride 102 mmol/L (98-107); Cholesterol 168 mg/dL (<200); Glucose 122 mg/dL (74-106); HDL Cholesterol 67 mg/dL (40-60); Potassium 4.3 mmol/L (3.5-5.1); Sodium 140 mmol/L (136-145); TSH (W/Ref FT4) 5.12 uIU/mL (0.36-3.74); Triglyceride 95 mg/dL (<150)
[2019-10-11 09:33] LABS: FREE T4 0.89 ng/dL (0.76-1.46)
== END 2019-10-11 08:01 ==
PROVIDERS: PCP Nurse Practitioner Adult Health; Visit Provider Nurse Practitioner Adult Health
DX: E03.9 Hypothyroidism, unspecified (principal); E11.9 Type 2 diabetes mellitus without complications; E78.5 Hyperlipidemia, unspecified; I10 Essential (primary) hypertension; I21.4 Non-ST elevation (NSTEMI) myocardial infarction; I25.10 Atherosclerotic heart disease of native coronary artery without angina pectoris; Z51.81 Encounter for therapeutic drug level monitoring
CPT/HCPCS: 36415; 80048; 80061; 85027; 83036; 84439; 84443

== ENCOUNTER 2019-10-18 11:36 | Outpatient (RCR) | payer OTHER, SELFPAY | END 2019-10-21 23:59 | disposition home or self-care (01) | LOC: CR 11:36 | PROVIDERS: PCP Nurse Practitioner Adult Health; Visit Provider Family Medicine | DX: I25.2 Old myocardial infarction (principal); Z51.89 Encounter for other specified aftercare | CPT/HCPCS: S9472 ==

== ENCOUNTER 2019-10-26 01:41 | Outpatient (CLI) | payer OTHER, SELFPAY ==
--- NOTE | 2019-10-26 10:35 | DI.US_ITS ---
APPROVED REPORT EXAM: Comprehensive 2D, Doppler, and color-flow Echocardiogram Patient Location: Out-Patient Project Coordinator Rn: Ligia Rosado [facility] ([place]) Rhythm: NSR Indications: CAD i25.10 Conclusion Left Ventricle : The left ventricle is normal size. Mild concentric left ventricular hypertrophy. The left ventricular systolic function is normal. The left ventricular ejection fraction is within the n ormal range. There is normal LV segmental wall motion. The left ventricular diastolic function is nor mal. LVEF is estimated to be 60-65%. Right Ventricle : The right ventricle is normal size. The right ventricular systolic function is norm al. Atria : Left atrium is mildly dilated. The right atrium size is normal. Aortic Valve : The aortic valve is normal in structure. No aortic regurgitation is present. There is no aortic valvular stenosis. Mitral Valve : Mitral valve leaflets are mildly thickened. Mild mitral regurgitation by color doppler . No evidence of mitral valve stenosis. Tricuspid Valve : The tricuspid valve is normal in structure. Trivial tricuspid regurgitation. Great Vessels : Aortic root is mildly dilated. The ascending aorta is mildly dilated. IVC is normal i n size and collapses >50% with inspiration. Estimated RVSP is 12-15 mmHg. There is no prior echocardiogram available for comparison. Wall motion Left Ventricle The left ventricle is normal size. The left ventricular systolic function is normal. The left ventric ular ejection fraction is within the normal range. Mild concentric left ventricular hypertrophy. Ther e is normal LV segmental wall motion. The left ventricular diastolic function is normal. LVEF is aliya mated to be 60-65%. Right Ventricle The right ventricle is normal size. The right ventricular systolic function is normal. Atria Left atrium is mildly dilated. The right atrium size is normal. Aortic Valve The aortic valve is normal in structure. There is no aortic valvular stenosis. No aortic regurgitatio n is present. Mitral Valve Mitral valve leaflets are mildly thickened. No evidence of mitral valve stenosis. Mild mitral regurgi tation by color doppler. Tricuspid Valve The tricuspid valve is normal in structure. Trivial tricuspid regurgitation. Pulmonic Valve Pulmonic valve is not well visualized. Great Vessels Aortic root is mildly dilated. The ascending aorta is mildly dilated. IVC is normal in size and colla pses >50% with inspiration. Estimated RVSP is 12-15 mmHg Pericardium There is no pericardial effusion. 2D Dimensions IVSd 1.00 cm F: 0.6-1.0 LV EDV A2C 107.20 mL PWd 0.90 cm F: 0.6 - 1.0 LV EDV A4C 116.40 mL LVDd 4.70 cm F: 3.8 - 5.2 LA Volume Index A2C 40.95 mL/m2 LVDs 2.65 cm F: 2.2 - 3.5 LA Volume Index A4C 36.62 mL/m2 Aortic Root 3.60 cm F: 2.7 - 3.3 LA Volume Index Biplane 44.06 mL/m2 RVID Base (AP4) 3.83 cm (M/F) 2.5-4.1 LA Area A4C 20.24 cm2 RA Area A4C 14.69 cm2 LA Area A2C 24.35 cm2 LVOT 1.75 cm (M/F) 1.5-2.5 EF AP4 58.25 % Ascending Aorta 3.74 cm F: 2.3 - 3.1 EF AP2 68.56 % LVEF (Teich) 74.89 % EF BP 64.07 % LVEF (Remy's) 64.07 % F: 54 - 74 LV Volume 85.40 mL F: 46 - 106 LV Volume Index 44.94 mL/m2 F: 29 - 61 FS 43.70 % LV Diastology E/A Ratio 1.1 MED E' 0.07 (>0.07 m/s) LV E/e MED 12.20 (<14) LAT E' 0.10 (>0.1 m/s) LV E/e LAT 8.35 (<14) Pulm Vein s 0.54 m/s PV S/D Ratio 0.96 Pulm Vein d 0.56 m/s Pulm Vein a 0.39 m/s A-A Duration 129.84 msec Aortic Valve LVOT Area 2.54 cm2 LVOT Peak Moncho. 1.40 m/s LVOT Mean Moncho. 1.01 m/s LVOT Peak Gr. 7.90 mmHg DENISHA Vmax Index 1.20 cm2/m2 LVOT Mean Gr. 4.50 mmHg LVOT VTI 0.30 m DENISHA Mean Moncho. Index 1.13 cm2/m2 AoV Peak Moncho. 1.56 (0.5-1.3 m/s) AoV Mean Moncho. 1.19 m/s AO Peak GR. 9.79 mmHg AO Mean GR. 6.09 (<5 mmHg) VTI Ratio 0.91 DENISHA (VTI) 2.32 (2.5-4.5 cm2) DENISHA (VTI) Index 1.22 cm/m2 Mitral Valve MV E Max Moncho. 0.88 (0.4-1.3 m/s) MV A Velocity 0.80 (0.4-1.3 m/s) E/A Ratio 1.07 MV Decel. Time 183.90 (160-240 msec) MV PHT 53.33 msec MVA PHT 4.10 cm2 Tricuspid Valve TR P. Velocity 1.74 m/s TV Regurg Vmax 1.74 m/s RAP Estimate 3.00 mmHg RVSP 15.00 mmHg TR P. Gradient 12.00 mmHg
== END 2019-10-26 02:01 ==
PROVIDERS: PCP Nurse Practitioner Adult Health; Visit Provider Internal Medicine Cardiovascular Disease
DX: I25.10 Atherosclerotic heart disease of native coronary artery without angina pectoris (principal); I25.2 Old myocardial infarction; I51.7 Cardiomegaly; I34.0 Nonrheumatic mitral (valve) insufficiency; I10 Essential (primary) hypertension
CPT/HCPCS: 93306

== ENCOUNTER 2019-11-17 14:21 | Outpatient (RCR) | payer OTHER, SELFPAY | END 2019-11-21 23:59 | disposition home or self-care (01) | LOC: CR 14:21 | PROVIDERS: PCP Nurse Practitioner Adult Health; Visit Provider Family Medicine | DX: I25.2 Old myocardial infarction (principal); Z51.89 Encounter for other specified aftercare | CPT/HCPCS: S9472 ==

== ENCOUNTER 2020-09-09 04:03 | Outpatient (CLI) | payer OTHER, SELFPAY ==
[2020-09-09 08:45] LABS: Hemoglobin A1C 7.3 % (<5.7)
[2020-09-09 09:30] LABS: Calculated LDL 72 mg/dL (<100); Cholesterol 154 mg/dL (<200); HDL Cholesterol 51 mg/dL (40-60); TSH (W/Ref FT4) 4.79 uIU/mL (0.36-3.74); Triglyceride 157 mg/dL (<150)
[2020-09-09 09:33] LABS: Ferritin 46 ng/mL (8-252)
[2020-09-09 10:04] LABS: FREE T4 0.91 ng/dL (0.76-1.46)
== END 2020-09-09 04:23 ==
PROVIDERS: Nurse Practitioner; PCP Nurse Practitioner Adult Health; Visit Provider Nurse Practitioner Adult Health
DX: E78.5 Hyperlipidemia, unspecified (principal); D64.9 Anemia, unspecified; E11.9 Type 2 diabetes mellitus without complications; R94.6 Abnormal results of thyroid function studies; D35.2 Benign neoplasm of pituitary gland
CPT/HCPCS: 36415; 80061; 82728; 83036; 84439; 84443

== ENCOUNTER 2020-10-22 00:31 | Outpatient (CLI) | payer OTHER, SELFPAY ==
--- NOTE | 2020-10-22 07:14 | DI.RAD_ITS ---
EXAM: XR CHEST 2V PA LATERAL CLINICAL HISTORY: chronic cough x1 year; r/o mass/acute, R05 TECHNIQUE: 2D digital imaging was performed. COMPARISON: CR CHEST 2 VIEWS PA,LAT from 07/08/2010 FINDINGS: The heart is not enlarged. 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 The lungs are clear and well expanded. No pleural effusion seen. Mediastinal contours appear intact. IMPRESSION: No evidence of acute process. RADIATION DOSE DELIVERED: Total DLP
== END 2020-10-22 00:51 ==
PROVIDERS: PCP Nurse Practitioner Adult Health; Visit Provider Nurse Practitioner Adult Health
DX: R05 Cough (principal); Z95.1 Presence of aortocoronary bypass graft
CPT/HCPCS: 71046

== ENCOUNTER 2020-11-13 00:27 | Outpatient (CLI) | payer OTHER, SELFPAY ==
--- NOTE | 2020-11-13 09:00 | DI.MAMMO_ITS ---
EXAM: MAMMO SCREENING CLINICAL HISTORY: screening,Z12.39 TECHNIQUE: Mammograms were interpreted according to the usual protocol including computer analysis w [employer] CAD system, tomosynthesis and C-view imaging. COMPARISON: 2004 through 2018 FINDINGS: The breasts are composed of scattered fibroglandular densities, Breast Density category B. No suspicious masses or suspicious microcalcifications are seen. A biopsy marker clip is again noted in the inferior subareolar region of the right breast. There are multiple small areas of nodularity bilaterally which are either stable or decreased in size. No skin thickening or abnormal axillary lymph nodes are seen. There has been no significant change from prior exams. IMPRESSION: BI-RADS Category 2 - Benign Findings Yearly screening mammography is recommended. Breast Density - Category B, scattered fibroglandular densities. A negative radiographic report should not delay biopsy if a dominant or clinically suspicious mass is present. Up to ten percent of cancers are not identified on mammography. A negative report may reinforce clinical impression. Adenosis and dense breasts may obscure an underlying neoplasm. False positive reports average 6 to 10%. Patient will receive a letter notifying them of these results.
== END 2020-11-13 00:47 ==
PROVIDERS: PCP Nurse Practitioner Adult Health; Visit Provider Nurse Practitioner Adult Health
DX: Z12.31 Encounter for screening mammogram for malignant neoplasm of breast (principal)
CPT/HCPCS: 77063; 77067

== ENCOUNTER 2020-12-26 01:54 | Outpatient (CLI) | payer OTHER, SELFPAY ==
[2020-12-27 15:31] LABS: COVID-19 RT-PCR UVMMC Result Negative (Negative)
== END 2020-12-26 01:55 | disposition home or self-care (01) ==
LOC: LBO 01:54
PROVIDERS: PCP Nurse Practitioner Adult Health; Visit Provider Surgery
DX: Z20.822 Contact with and (suspected) exposure to COVID-19 (principal); Z01.818 Encounter for other preprocedural examination
CPT/HCPCS: U0003

== ENCOUNTER 2020-12-30 08:18 | Day surgery (SDC) | payer OTHER, SELFPAY ==
--- NOTE | 2020-12-30 06:51 | W.COLOREPORT ---
Date of service: 12/30/20 Time of Service: 09:50 Colonoscopy Report Date of procedure: 12/30/20 Pre-op diagnosis general: Hx of polyps Post-op diagnosis procedure note: same Procedure: Colonoscopy Surgeon: Alyssa Valdes Anesthesia proc note operative: other (General/ASA 3/ Wilner Dodd, JAIME) Estimated blood loss (mL): 0 Pathology: none sent Complications: None Disposition: same day Indications: The patient is here for Colonoscopy pre-op. Her last screening was in 2012 and was remarkable for tubular adenomatous polyp. She has no family history of colon cancer. She has not had any bowel habit changes. -Discussed colonoscopy bowel prep as well as the procedure. Discussed possible complications of the procedure to include bleeding, pain, perforation, missed small lesion/polyp, sore throat, aspiration and adverse reaction to the medications. Questions were answered to patient?s satisfaction. No guarantees were implied or given. Prep: Miralax/Dulcolax Procedure Start Time: 09:50 Procedure End Time: 10:22 Retraction Time: 16 minutes Findings: Normal large bowel Procedure Description: After informed consent was obtained the patient was taken to the procedure room and placed in a left decubitous position. Monitors were applied and a time out was done. The patients name, date of , procedure, allergies to medications and metal in their body was reviewed. The patient was then sedated. Once sedated and comfortable a rectal exam was done. External exam was normal. Internal exam revealed a normal sphincter tone and no palpable masses. The scope was then introduced and retro-flexed. No internal hemorrhoids, polyps or masses were identified on retro-flexion. The scope was then advanced to the cecum without difficulty. The ileocecal valve and appendiceal orifice were identified. The prep was adequate. The scope was then slowly retracted over 16 minutes back into the rectum. There were no polyps. There was no diverticulosis noted. The scope was removed and the patient was woken up and taken back to Same day surgery in stable condition. The patient tolerated the procedure well and there were no immediate complications. Follow up: The patient should follow up in 10 years unless they develop changes in bowel habits or other new gastrointestinal complaints.
--- NOTE | 2020-12-30 06:52 | W.PM.DSUDISC ---
Discharge Plan Disposition Patient Disposition: HOME Condition: Good Discharge Details Reason For Visit: Colonoscopy Attending Provider: Alyssa Valdes Primary Care Provider: Marj Martinez Home Meds and New Rx's Prescriptions: Continued cholecalciferol (vitamin D3) 10 mcg (400 unit) capsule 10 mcg PO DAILY RF: 0 Golo PO BID RF: 0 (DME) lancets [FreeStyle Lancets] 28 gauge misc 1 ea Miscellaneous DAILY Qty: 100 RF: 3 aspirin 81 mg tablet,delayed release (DR/EC) 81 mg PO DAILY RF: 0 (DME) blood-glucose meter [FreeStyle Lite Meter] Kit See Rx Instructions .ROUTE .MEDSUPPLY Qty: 1 RF: 0 (DME) Blood Glucose Test Strip 1 ea Miscellaneous AC & HS Qty: 100 RF: 4 carvedilol 12.5 mg tablet 12.5 mg PO BID Qty: 180 RF: 3 rosuvastatin [Crestor] 40 mg tablet 40 mg PO HS Qty: 90 RF: 3 losartan 100 mg tablet 100 mg PO .pm Qty: 90 RF: 3 metformin 1,000 mg tablet 1,000 mg PO BID Qty: 180 RF: 3 omeprazole 20 mg capsule,delayed release(DR/EC) 20 mg PO .daily in AM Qty: 90 RF: 0 gabapentin 100 mg capsule See Rx Instructions PO BID Qty: 180 RF: 1 black cohosh 40 mg Tablet 40 mg PO HS RF: 0 Discontinued polyethylene glycol 3350 17 gram/dose powder 238 g PO ONCE Qty: 238 RF: 0 bisacodyl [Dulcolax (bisacodyl)] 5 mg tablet,delayed release (DR/EC) 5 mg PO ONCE Qty: 4 RF: 0 Discharge Instructions Additional Instructions: Findings: normal large bowel Follow up: 10 years Please call if you develop: fevers >101.5 Nausea or Vomiting Abdominal pain that is not transient DAY SURGERY UNIT POST ENDOSCOPY INSTRUCTIONS 1. Because there will be medication in your system for the next 24 hours, you may feel a little sleepy. Your coordination will be affected. Therefore: a. Do not drive or operate dangerous equipment for 24 hours. b. Do not drink alcohol beverages for 24 hours (not even beer). c. Plan to go home and rest for the day. 2. Generally there are no restrictions on your activity after a day or so has gone by, but you may feel a bit fatigued for a few days. 3 After you arrive home you may have a light meal and return to a normal diet as you can tolerate it without feeling sick to your stomach. 4. After surgery, you may feel pain or discomfort. This should be only transient, but if it persists please contact your doctor. 5. If there are any questions regarding the findings of your procedure, please feel free to contact your doctor. 6. If you are unable to contact your doctor with a problem, contact the hospital at [phone]. 7. Continue all your regular medications unless directed otherwise. I understand the above instructions and have no questions. Signature of Patient or Responsible Adult Escort Date/Time Name of Responsible Adult Escort Signature of Nurse Date/Time Activity:: Activity as Tolerated Diet:: As Tolerated Discharge Orders Discharge Orders: Discharge Order (Routine); Ordered 12/30/20 Ordered By: Alyssa Valdes
[2020-12-30 08:20] VITALS: BP 133/96; PULSE 80; RESP 18; TEMP 36.5; O2SAT 97
[2020-12-30] MEDS: Lactated Ringers 1,000 ML 80 ML IV (09:43)
[2020-12-30 11:00] VITALS: BP 121/58; PULSE 62; RESP 16; TEMP 36; O2SAT 62
== END 2020-12-30 11:35 | disposition home or self-care (01) ==
LOC: SUR 08:18
PROVIDERS: PCP Nurse Practitioner Adult Health; Visit Provider Surgery
PROC: 0DJD8ZZ Inspection of Lower Intestinal Tract, Via Natural or Artificial Opening Endoscopic (ICD-10-PCS; CPT 45378; principal; 2020-12-30 09:30)
DX: Z12.11 Encounter for screening for malignant neoplasm of colon (principal); Z86.010 Personal history of colon polyps
CPT/HCPCS: 45378; J2001

== ENCOUNTER 2021-04-28 04:50 | Outpatient (CLI) | payer OTHER, SELFPAY ==
[2021-04-28 09:21] LABS: Hemoglobin A1C 7.8 % (<5.7)
[2021-04-28 10:38] LABS: ALT 18 U/L (14-59); AST 15 U/L (15-37); Albumin 3.7 g/dL (3.4-5.0); Alkaline Phosphatase 145 U/L (46-116); Anion Gap 10.1 mmol/L (3-11); BUN 20 mg/dL (7-18); Bilirubin, Total 0.5 mg/dL (0.2-1.0); CO2 28.9 mmol/L (21.0-32.0); CREATININE 0.8 mg/dL (0.55-1.02); Calculated LDL 170 mg/dL (<100); Chloride 102 mmol/L (98-107); Cholesterol 279 mg/dL (<200); Glucose 140 mg/dL (74-106); HDL Cholesterol 41 mg/dL (40-60); Potassium 4.7 mmol/L (3.5-5.1); Sodium 141 mmol/L (136-145); TSH (W/Ref FT4) 4.21 uIU/mL (0.36-3.74); Total Protein 7.6 g/dL (6.4-8.2); Triglyceride 343 mg/dL (<150)
[2021-04-28 11:00] LABS: FREE T4 0.96 ng/dL (0.76-1.46)
== END 2021-04-28 04:51 | disposition home or self-care (01) ==
LOC: LBO 04:50
PROVIDERS: PCP Nurse Practitioner Adult Health; Visit Provider Nurse Practitioner Adult Health
DX: I10 Essential (primary) hypertension (principal); E78.5 Hyperlipidemia, unspecified; E11.9 Type 2 diabetes mellitus without complications; I25.10 Atherosclerotic heart disease of native coronary artery without angina pectoris; I25.2 Old myocardial infarction
CPT/HCPCS: 36415; 80053; 80061; 83036; 84439; 84443

== ENCOUNTER 2021-07-22 05:24 | Outpatient (CLI) | payer OTHER, SELFPAY ==
--- NOTE | 2021-07-22 13:00 | NS.NUTBLAN_ITS ---
Horace was referred to Medical Nutrition Therapy for diabetes self management education and placement of Dexcom 6 continuous glucose monitor. PMH: CAD, DM2, HTN, HLD, obesity. s/p CASBG x 4 and diabetic foot ulcer. Food record and blood sugar logs indicates mostly well balanced meals with well controlled BG. Most recent A1C (04/28/21) 7.8% indicating mildly elevated blood sugars. PCP recommended CGM to better see glycemic patterns that may be contributing to elevated A1C. Home DM meds: 1000 mg metformin ER BID Today's session included placing Dexcom 6 and pairing with smart phone. Reviewed dietary strategies for hypo/hyperglycemic events. Educated Horace how to down load Dexcom Clarity program and downloading CGM data for review in 10 days. . Plan: greeting card writer to call in 10 days to assist Horace in retrieving CGM data or Horace can make follow up appt. for data retrieval.
--- NOTE | 2021-08-01 15:20 | W.DIABETESNO ---
Date of service: 08/01/21 Time of Service: 15:20 Diabetes Note NOTE: Spoke to Horace on phone after she has worn a Dexom 6 Continuous Glucose Monitor x 10 days. She reports she has been in Time in Range (70-180 mg/dl): 77% of the time with high blood sugars 22% of time in last 10 days. Overall, blood sugars well controlled with current meal plan, DM medication regime. Encouraged continued exercise and limiting simple carbs. Horace would like to continue to use a Dexcom 6 CGM as it is a great teaching tool on how diet/exercise affect blood sugars however, her insurance will not approve it since she is not using insulin at this time. No follow up planned at this time. Time Spent in Nutritional Counseling and Treatment: 20
== END 2021-07-22 05:25 | disposition home or self-care (01) ==
PROVIDERS: PCP Nurse Practitioner Adult Health; Visit Provider Dietitian, Registered
DX: E11.9 Type 2 diabetes mellitus without complications (principal); Z79.84 Long term (current) use of oral hypoglycemic drugs; Z71.3 Dietary counseling and surveillance
CPT/HCPCS: 97802

== ENCOUNTER 2022-03-24 02:07 | Outpatient (CLI) | payer OTHER, SELFPAY ==
[2022-03-24 09:03] LABS: Hemoglobin A1C 7.6 % (<5.7)
[2022-03-24 09:35] LABS: COMMENT (LAB VIEW ONLY) 171.87 mg/dL
[2022-03-24 09:41] LABS: Calculated LDL 56 mg/dL (<100); Cholesterol 145 mg/dL (<200); HDL Cholesterol 50 mg/dL (40-60); TSH (W/Ref FT4) 4.54 uIU/mL (0.36-3.74); Triglyceride 199 mg/dL (<150)
[2022-03-24 09:45] LABS: Microalb ug/mg Crea 79.4 ug/mg Cr
[2022-03-24 10:01] LABS: FREE T4 0.98 ng/dL (0.76-1.46)
== END 2022-03-24 02:08 | disposition home or self-care (01) ==
LOC: LBO 02:07
PROVIDERS: PCP Nurse Practitioner Adult Health; Visit Provider Nurse Practitioner Adult Health
DX: I10 Essential (primary) hypertension (principal); E78.5 Hyperlipidemia, unspecified; E11.9 Type 2 diabetes mellitus without complications; E03.9 Hypothyroidism, unspecified; D35.2 Benign neoplasm of pituitary gland
CPT/HCPCS: 36415; 80061; 82043; 82570; 83036; 84439; 84443

== ENCOUNTER 2022-05-12 12:48 | Outpatient (CLI) | payer OTHER, SELFPAY | END 2022-05-12 12:49 | disposition home or self-care (01) | LOC: DI.CARD 12:49 | PROVIDERS: PCP Nurse Practitioner Adult Health; Visit Provider Internal Medicine Cardiovascular Disease | DX: I25.10 Atherosclerotic heart disease of native coronary artery without angina pectoris (principal) | CPT/HCPCS: 93010 ==

== ENCOUNTER 2022-06-23 08:04 | Outpatient (CLI) | payer OTHER, SELFPAY ==
--- NOTE | 2022-06-23 08:00 | RT.EKG_ITS ---
APPROVED REPORT Exam: Resting ECG Reason for Exam: CAD Patient Location: O HR:74 bpm ECG Measurements Heart Rate 74 AXIS MI 182 P 63 QRSd 98 QRS 72 QT 394 T 58 QTc 438 Conclusion Sinus rhythm...normal P axis, V-rate 50- 99 Normal Electrocardiogram
== END 2022-06-23 08:05 | disposition home or self-care (01) ==
LOC: DI.CARD 08:05
PROVIDERS: PCP Nurse Practitioner Adult Health; Visit Provider Internal Medicine Cardiovascular Disease
DX: I25.10 Atherosclerotic heart disease of native coronary artery without angina pectoris (principal)
CPT/HCPCS: 93010

== ENCOUNTER → 2022-07-17 00:24 | Outpatient (CLI) | payer OTHER, SELFPAY ==
--- NOTE | 2022-07-17 07:45 | DI.MAMMO_ITS ---
Exam(s) MAMMO SCREENING EXAM: MAMMO SCREENING CLINICAL HISTORY: screening,Z12.39. TECHNIQUE: Bilateral full field digital CC and MLO mammographic images were obtained with 3D tomosyn thesis and utilizing computer aided detection (CAD). COMPARISON: Prior mammograms were reviewed, the most recent being October 2020. FINDINGS: There has been no significant change in the appearance and distribution of the fibroglandular tissue which is predominately fatty. There is a biopsy marker clip in the anterior aspect of the right breast adjacent to a stable appeari ng nodular density which is unchanged least 2012. Other small asymmetric densities in both breasts a lso remain stable. There are no new spiculated masses nor new malignant appearing microcalcification groups. There is no new significant architectural distortion nor skin thickening-retraction. IMPRESSION: Stable benign-appearing findings. No radiographic evidence of malignancy. BI-RADS Category 2 - Benign Findings Breast Density - Category B - Scattered areas of fibroglandular density Breast density Category C or D implies that the patient has dense breast tissue. Dense breast tissue can make it harder to find cancer on a mammogram. Dense breast tissue is also associated with an incr eased risk of breast cancer. This information about the result of the mammogram report was provided to the patient to raise their awareness. Use this report when you speak with the patient about their risks for breast cancer, which includes their family history. At that time, you may recommend additional screening tests (Ultrasoun d or MRI) as these tests may add significant information. A negative radiographic report should not delay biopsy if a dominant or clinically suspicious mass is present. Up to ten percent of cancers are not identified on mammography. A negative report may reinforce clinical impression. Adenosis and dense breasts may obscure an underlying neoplasm. False positive reports average 6 to 10%. Patient will receive a letter notifying them of these results.
== END ==
PROVIDERS: PCP Nurse Practitioner Adult Health; Visit Provider Nurse Practitioner Adult Health
DX: Z12.31 Encounter for screening mammogram for malignant neoplasm of breast (principal); N60.81 Other benign mammary dysplasias of right breast; N60.82 Other benign mammary dysplasias of left breast
CPT/HCPCS: 77063; 77067

== ENCOUNTER 2022-09-22 15:04 | Outpatient (REF) | payer OTHER, SELFPAY ==
[2022-09-22 13:12] LABS: Bilirubin Negative (Negative); Blood Trace-lysed (Negative); Clarity Clear (Clear); Glucose Negative (Negative); Ketones Negative (Negative); Leukocyte Esterase Trace (Negative); Nitrite Negative (Negative); Urobilinogen 0.2 EU/dL (Up TO 0.2)
[2022-09-22 13:36] LABS: Bacteria Few HPF (Negative); C & S Indicated? C&S Done As Ordered; Casts Negative LPF (Negative); Crystals Negative HPF (Negative); Epithelial Cells Moderate HPF (Negative); Mucus Trace (Negative)
== END 2022-09-22 15:05 | disposition home or self-care (01) ==
LOC: LBN 15:04
PROVIDERS: PCP Nurse Practitioner Adult Health; Visit Provider Nurse Practitioner Gerontology
DX: R31.29 Other microscopic hematuria (principal); N39.41 Urge incontinence
CPT/HCPCS: 81003; 81015; 87086

== ENCOUNTER 2022-12-28 14:28 | Outpatient (REF) | payer OTHER, SELFPAY ==
--- NOTE | 2022-12-28 13:30 | PAPFT_PTH ---
PATIENT: Horace Leahy LOC: [facility] U#:[id number] AGE/SX: 62/F ROOM: RE12/28/[address]: Marj Martinez APRN : 1960 BED: DIS: 12/28/2022 SPEC #: [id number] RECD: 12/28/22 18:16 STATUS: JACE REQ #: [id number] BERNADETTE: 12/28/22 13:[address]: Marj Martinez DEPT: [facility] Cytology RECD BY: Makayla Cannon Tissues: 1 - CX/ENDOCX FOR PAP SMEARS Procedures: PAP THIN PREP/UVM Screening HPV DNA PROBE Comments: [id number]
== END 2022-12-28 14:29 | disposition home or self-care (01) ==
LOC: LBN 14:28
PROVIDERS: PCP Nurse Practitioner Adult Health; Referring Provider Nurse Practitioner Adult Health; Visit Provider Nurse Practitioner Adult Health
DX: Z12.4 Encounter for screening for malignant neoplasm of cervix (principal); Z11.51 Encounter for screening for human papillomavirus (HPV)
CPT/HCPCS: 88142; 87624

== ENCOUNTER 2022-12-31 00:50 | Outpatient (CLI) | payer OTHER, SELFPAY ==
--- NOTE | 2022-12-31 08:32 | DI.RAD_ITS ---
Exam(s) XR RIBS RT W PA LAT CHEST EXAM: XR RIBS RT W PA LAT CHEST CLINICAL HISTORY: ? fx or other issue with bones,sternal pain,rt rib pain,r07.89,r07.81 TECHNIQUE: 2D digital imaging was performed. COMPARISON: CR XR CHEST 2V PA LATERAL from 10/22/2020 FINDINGS: RIBS 3 VIEWS-RIGHT There are no obvious acute rib fractures evident. No lytic rib lesions identified. Sternotomy wires are noted.. The ipsilateral right clavicle appears intact. CXR- 2 VIEWS: No lung contusion or pneumothorax. There is no pleural effusion evident. Heart size is normal and there is no significant mediastinal widening. Sternotomy wires are again noted. No pulmonary edema. IMPRESSION: 1. No obvious rib fractures evident. Also no significant rib lesions. 2. No ipsilateral lung nor pleural abnormality evident. No pneumothorax. Again noted are sternotomy wires. Heart size normal. No pulmonary edema. DATA REPOSITORY: RADIATION DOSE DELIVERED:
== END 2022-12-31 01:10 ==
PROVIDERS: PCP Nurse Practitioner Adult Health; Visit Provider Nurse Practitioner Adult Health
DX: R07.81 Pleurodynia (principal); R07.89 Other chest pain
CPT/HCPCS: 71046; 71100

== ENCOUNTER 2022-12-31 13:44 | Outpatient (REF) | payer OTHER, SELFPAY ==
[2022-12-31 10:53] LABS: Bilirubin Small (Negative); Blood Negative (Negative); Clarity Cloudy (Clear); Glucose Negative (Negative); Ketones Trace mg/dL (Negative); Leukocyte Esterase Negative (Negative); Nitrite Negative (Negative); Specific Gravity >= 1.030 (1.005-1.025); Urobilinogen 0.2 EU/dL (Up TO 0.2); pH 5.5 (5-8)
[2022-12-31 11:08] LABS: Epithelial Cells Rare HPF (Negative); RBC 0-2 HPF (0-2); WBC 0-2 HPF (0-5)
[2022-12-31 11:09] LABS: Bacteria Moderate HPF (Negative); C & S Indicated? C&S Done As Ordered; Casts Negative LPF (Negative); Crystals Few Amorphous HPF (Negative); Mucus Negative (Negative)
== END 2022-12-31 13:45 | disposition home or self-care (01) ==
LOC: LBN 13:44
PROVIDERS: PCP Nurse Practitioner Adult Health; Visit Provider Nurse Practitioner Gerontology
DX: R31.29 Other microscopic hematuria (principal)
CPT/HCPCS: 81003; 81015; 87086

== ENCOUNTER 2023-02-19 00:26 | Outpatient (CLI) | payer OTHER, SELFPAY ==
--- NOTE | 2023-02-19 07:15 | DI.MRI_ITS ---
Exam(s) MR BRAIN PITUITARY WO/W EXAM: MR BRAIN PITUITARY WO/W IV Contrast: mL of Magnevist contrast administered. CLINICAL HISTORY: f/u pit microadenoma,s/p resection,d35.2 TECHNIQUE: Multiplanar multisequence MRI of the brain and pituitary gland was performed. CONTRAST MATERIAL: IV Contrast: 18 mL of Magnevist contrast administered. COMPARISON: MR MR brain pituitary wo/w from 03/23/2019 Findings: VENTRICLES AND EXTRA AXIAL SPACES: Normal in size and morphology for the patient's age. HEMORRHAGE: None. CEREBRAL PARENCHYMA: Mild white matter changes small vessel disease. Mild atrophy. No focus of rest ricted diffusion to suggest acute infarct. No space-occupying lesion identified. MIDLINE SHIFT: None. 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 Normal. CALVARIUM: Normal. ENHANCEMENT: No suspicious enhancement identified. VISUALIZED PARANASAL SINUSES/MASTOIDS: Mild mucous retention at the floor of the right maxillary sinu s. Postsurgical changes. No recurrence mass. OTHER FINDINGS: None. PITUITARY/sella: Prior surgery to sella and sphenoid sinuses. The sella appears enlarged, unchanged . No recurrent mass is visible.. Pituitary stalk is slightly deviated to the right.. The gland appears small and located on the right side. Demonstrates homogenous T2-weighted signal intensity with homogeneous enhancement. No evidenc e of macroadenoma or microadenoma. The optic chiasm is unremarkable. The cavernous portions of both carotid arteries are unremarkable. Impression: Postsurgical changes of the sella and sphenoid sinuses. No recurrent mass is visible. DATA REPOSITORY:
[2023-02-19 12:36] LABS: Hemoglobin A1C 7.3 % (<5.7)
[2023-02-19 12:49] LABS: ALT 13 U/L (14-59); AST 13 U/L (15-37); Albumin 3.8 g/dL (3.4-5.0); Alkaline Phosphatase 127 U/L (46-116); Anion Gap 10.7 mmol/L (3-11); BUN 19 mg/dL (7-18); Bilirubin, Total 0.3 mg/dL (0.2-1.0); CO2 25.3 mmol/L (21.0-32.0); CREATININE 0.9 mg/dL (0.55-1.02); Calcium 9.4 mg/dL (8.5-10.1); Calculated LDL 49 mg/dL (<100); Chloride 102 mmol/L (98-107); Cholesterol 152 mg/dL (<200); Estimated GFR 72.73 (mL/min/1.73m2); Glucose 138 mg/dL (74-106); HDL Cholesterol 55 mg/dL (40-60); Potassium 4.3 mmol/L (3.5-5.1); Sodium 138 mmol/L (136-145); TSH (W/Ref FT4) 3.77 uIU/mL (0.36-3.74); Total Protein 8.3 g/dL (6.4-8.2); Triglyceride 244 mg/dL (<150)
[2023-02-19] MEDS: Normal Saline Flush 10 ML SYR IVP (12:53)
[2023-02-19] MEDS: Gadoterate meglumine 20 ML SYRINGE 18 ML IVP (12:54)
[2023-02-19 13:09] LABS: FREE T4 0.84 ng/dL (0.76-1.46)
[2023-02-19 14:13] LABS: COMMENT (LAB VIEW ONLY) 95.14 mg/dL; Microalb ug/mg Crea 90.5 ug/mg Cr
== END 2023-02-19 00:46 ==
LOC: DI 00:26
PROVIDERS: PCP Nurse Practitioner Adult Health; Visit Provider Nurse Practitioner Adult Health
DX: D35.2 Benign neoplasm of pituitary gland (principal); E03.9 Hypothyroidism, unspecified; E11.40 Type 2 diabetes mellitus with diabetic neuropathy, unspecified; Z98.890 Other specified postprocedural states
CPT/HCPCS: 70553; 80053; 80061; 82043; 82570; 83036; 84439; 84443

== ENCOUNTER 2023-03-22 04:49 | Outpatient (CLI) | payer OTHER, SELFPAY ==
[2023-03-22 08:23] LABS: CREATININE 0.8 mg/dL (0.55-1.02); Estimated GFR 83.78 (mL/min/1.73m2)
== END 2023-03-22 04:50 | disposition home or self-care (01) ==
PROVIDERS: PCP Nurse Practitioner Adult Health; Referring Provider Nurse Practitioner Adult Health; Visit Provider Nurse Practitioner Adult Health
DX: D35.2 Benign neoplasm of pituitary gland (principal)
CPT/HCPCS: 36415; 82565

== ENCOUNTER 2023-07-22 02:08 | Outpatient (CLI) | payer OTHER, SELFPAY ==
[2023-07-22 09:00] LABS: Calculated LDL 63 mg/dL (<100); Cholesterol 134 mg/dL (<200); HDL Cholesterol 53 mg/dL (40-60); Triglyceride 92 mg/dL (<150)
[2023-07-22 10:21] LABS: Hemoglobin A1C 6.8 % (<5.7)
== END 2023-07-22 02:09 | disposition home or self-care (01) ==
LOC: LBO 02:08
PROVIDERS: PCP Nurse Practitioner Adult Health; Referring Provider Nurse Practitioner Adult Health; Visit Provider Nurse Practitioner Adult Health
DX: E78.1 Pure hyperglyceridemia (principal); E11.40 Type 2 diabetes mellitus with diabetic neuropathy, unspecified
CPT/HCPCS: 36415; 80061; 83036

== ENCOUNTER → 2024-02-08 02:04 | Outpatient (CLI) | payer OTHER, SELFPAY ==
--- NOTE | 2024-02-08 08:30 | DI.MAMMO_ITS ---
Exam(s) MAMMO SCREENING EXAM: MAMMO SCREENING CLINICAL HISTORY: screening Z12.39 SCREENING FOR BREAST CANCER. TECHNIQUE: Bilateral full field digital CC and MLO mammographic images were obtained with 3D tomosyn thesis and utilizing computer aided detection (CAD). COMPARISON: Prior mammograms were reviewed. FINDINGS: There has been no significant change in the appearance and distribution of the fibroglandular tissue. Asymmetric densities both breasts are unchanged from prior studies, including a lobulated nodular den sity anteriorly in the right breast with an adjacent biopsy marker clip There are no new spiculated masses nor malignant appearing microcalcification groups. There is no significant architectural distortion nor skin thickening-retraction. IMPRESSION: No radiographic evidence of malignancy. Stable benign-appearing findings BI-RADS Category 2 - Benign Findings Breast Density - Category B - Scattered areas of fibroglandular density Breast density Category C or D implies that the patient has dense breast tissue. Dense breast tissue can make it harder to find cancer on a mammogram. Dense breast tissue is also associated with an incr eased risk of breast cancer. This information about the result of the mammogram report was provided to the patient to raise their awareness. Use this report when you speak with the patient about their risks for breast cancer, which includes their family history. At that time, you may recommend additional screening tests (Ultrasoun d or MRI) as these tests may add significant information. A negative radiographic report should not delay biopsy if a dominant or clinically suspicious mass is present. Up to ten percent of cancers are not identified on mammography. A negative report may reinforce clinical impression. Adenosis and dense breasts may obscure an underlying neoplasm. False positive reports average 6 to 10%. Patient will receive a letter notifying them of these results.
== END ==
PROVIDERS: PCP Nurse Practitioner Adult Health; Visit Provider Nurse Practitioner Adult Health
DX: Z12.31 Encounter for screening mammogram for malignant neoplasm of breast (principal); R92.323 Mammographic fibroglandular density, bilateral breasts
CPT/HCPCS: 77063; 77067

== ENCOUNTER → 2024-02-28 02:26 | Outpatient (CLI) | payer OTHER, SELFPAY ==
--- NOTE | 2024-02-28 07:45 | DI.MRI_ITS ---
Exam(s) MR BRAIN PITUITARY WO/W EXAM: MR BRAIN PITUITARY WO/W CLINICAL HISTORY: annual surveillance(initial dx 2018)pituitary microadenoma,d35.2 TECHNIQUE: Multiplanar multisequence MRI of the brain and pituitary gland was performed. CONTRAST MATERIAL: IV Contrast: 18 mL of Dotarem contrast administered. COMPARISON: MR MR BRAIN PITUITARY WO/W from 02/19/2023 Findings: VENTRICLES AND EXTRA AXIAL SPACES: Normal in size and morphology for the patient's age. HEMORRHAGE: None. CEREBRAL PARENCHYMA: No focus of restricted diffusion to suggest acute infarct. No space-occupying le alber identified. Mild atrophy. Mild white matter changes. MIDLINE SHIFT: None. 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 CALVARIUM: Normal. ENHANCEMENT: No suspicious enhancement identified. VISUALIZED PARANASAL SINUSES/MASTOIDS: Clear. OTHER FINDINGS: None. PITUITARY/sella: Postsurgical changes to the sella and sphenoid sinuses. The sella is again noted to be enlarged. Some postsurgical enhancement, unchanged. No visible mass. Pituitary stalk is deviated to the right slightly. The pituitary gland is again noted to be small an d located eccentrically toward the right. No visible mass. The optic chiasm is unremarkable. The cavernous portions of both carotid arteries are unremarkable. Impression: No evidence of recurrent pituitary or sellar mass. DATA REPOSITORY:
[2024-02-28 10:01] LABS: CREATININE 0.8 mg/dL (0.55-1.02); Estimated GFR 83.26 (mL/min/1.73m2)
[2024-02-28] MEDS: Normal Saline Flush 10 ML SYR IVP (10:13)
[2024-02-28] MEDS: Gadoterate meglumine 20 ML VIAL 18 ML IVP (10:14)
== END ==
PROVIDERS: PCP Nurse Practitioner Adult Health; Visit Provider Nurse Practitioner Adult Health
DX: D35.2 Benign neoplasm of pituitary gland (principal); G31.89 Other specified degenerative diseases of nervous system; Z01.812 Encounter for preprocedural laboratory examination
CPT/HCPCS: 70553; 82565

== ENCOUNTER 2024-06-27 10:22 | Outpatient (CLI) | payer OTHER, SELFPAY ==
--- NOTE | 2024-06-27 10:15 | RT.EKG_ITS ---
APPROVED REPORT Exam: Resting ECG Reason for Exam: CAD Patient Location: O HR:57 bpm ECG Measurements Heart Rate 57 AXIS ME 202 P 73 QRSd 93 QRS 53 QT 424 T 90 QTc 413 Conclusion Sinus rhythm...normal P axis, V-rate 50- 99 Normal Electrocardiogram
== END 2024-06-27 10:23 | disposition home or self-care (01) ==
LOC: DI.CARD 10:22
PROVIDERS: PCP Nurse Practitioner Adult Health; Visit Provider Internal Medicine Cardiovascular Disease
DX: I25.810 Atherosclerosis of coronary artery bypass graft(s) without angina pectoris (principal)
CPT/HCPCS: 93010

== ENCOUNTER 2024-07-20 04:22 | Outpatient (CLI) | payer OTHER, SELFPAY ==
[2024-07-20 09:11] LABS: Hemoglobin A1C 6.9 % (<5.7)
[2024-07-20 09:27] LABS: Anion Gap 8.3 mmol/L (3-11); BUN 16 mg/dL (7-18); CO2 28.7 mmol/L (21.0-32.0); CREATININE 0.8 mg/dL (0.55-1.02); Calcium 9.2 mg/dL (8.5-10.1); Calculated LDL 61 mg/dL (<100); Chloride 102 mmol/L (98-107); Cholesterol 164 mg/dL (<200); Estimated GFR 83.26 (mL/min/1.73m2); Glucose 149 mg/dL (74-106); HDL Cholesterol 63 mg/dL (40-60); Potassium 3.9 mmol/L (3.5-5.1); Sodium 139 mmol/L (136-145); TSH (W/Ref FT4) 6.61 uIU/mL (0.36-3.74); Triglyceride 200 mg/dL (<150)
[2024-07-20 09:47] LABS: FREE T4 0.84 ng/dL (0.76-1.46)
== END 2024-07-20 04:23 | disposition home or self-care (01) ==
LOC: LBO 04:22
PROVIDERS: PCP Nurse Practitioner Adult Health; Referring Provider Nurse Practitioner Adult Health; Visit Provider Nurse Practitioner Adult Health
DX: I10 Essential (primary) hypertension (principal); E78.5 Hyperlipidemia, unspecified; E11.40 Type 2 diabetes mellitus with diabetic neuropathy, unspecified; D35.2 Benign neoplasm of pituitary gland
CPT/HCPCS: 36415; 80048; 80061; 83036; 84439; 84443

== ENCOUNTER 2024-08-15 14:10 | Outpatient (CLI) | payer OTHER, SELFPAY ==
[2024-08-15 15:00] LABS: Anion Gap 10.7 mmol/L (3-11); BUN 21 mg/dL (7-18); CO2 27.3 mmol/L (21.0-32.0); CREATININE 0.9 mg/dL (0.55-1.02); Calcium 9.8 mg/dL (8.5-10.1); Chloride 100 mmol/L (98-107); Estimated GFR 72.28 (mL/min/1.73m2); Glucose 145 mg/dL (74-106); Sodium 138 mmol/L (136-145)
[2024-08-15 23:12] LABS: CEA 1.9 ng/mL (See Note)
[2024-08-16 10:00] LABS: CA 125 12 U/mL (<30); CA 19-9 12 U/mL (<35)
== END 2024-08-15 14:11 | disposition home or self-care (01) ==
PROVIDERS: PCP Nurse Practitioner Adult Health; Visit Provider Obstetrics & Gynecology
DX: N94.89 Other specified conditions associated with female genital organs and menstrual cycle (principal); N83.202 Unspecified ovarian cyst, left side; D25.9 Leiomyoma of uterus, unspecified; N83.209 Unspecified ovarian cyst, unspecified side
CPT/HCPCS: 36415; 80048; 86304; 82378; 86301

== ENCOUNTER 2024-09-04 01:16 | Outpatient (CLI) | payer OTHER, SELFPAY ==
--- NOTE | 2024-09-04 07:30 | DI.MRI_ITS ---
Exam(s) MR PELVIS WO/W EXAM: MR PELVIS WO/W CLINICAL HISTORY: evaluate adnexal mass,fibroids,n94.89 TECHNIQUE: Multiplanar multisequence MRI of the pelvis was performed. CONTRAST MATERIAL: IV Contrast: 18 mL of Dotarem contrast administered. COMPARISON: US US PELVIS TRANSVAGINAL from 08/04/2024 FINDINGS: The examination is limited due to patient motion artifact. Uterus: There is a 5.1 x 5.3 cm fundal uterine fibroid. (Series 7001, image 19). There is a 2.5 x 2 .6 cm fibroid in the lower uterine segment on the right (series 7001, image 19). There is a 2.8 x 2. 4 cm mass in the right adnexa which appears to be contiguous with the uterus suggesting a pedunculate d fibroid (series 6001, image 18). The endometrial stripe is grossly unremarkable. It is distorted secondary to compression by the large fundal fibroid. Ovaries: The left ovary is visualized and measures 4.9 x 2.2 cm. (Series 7001, image 17). There is a 2.4 cm simple cyst on the left ovary. The right ovary measures 2.8 x 1.4 cm (series 5001, image 20 ). Also seen series 7001, images 13-17. Urinary bladder: The urinary bladder is incompletely distended but grossly unremarkable. Bowel: Unremarkable. Vasculature: Unremarkable. Soft Tissues: Unremarkable. Bone: Unremarkable. Lymph Nodes: Unremarkable. IMPRESSION: 1. Fibroid uterus. The largest is in the fundus and measures 5.1 x 5.3 cm. There also is a peduncul ated fibroid on the right measuring 2.8 x 2.4 cm which corresponds to the right adnexal solid mass se en on the ultrasound dated 08/04/2024. 2. Both ovaries were visualized. The right ovary is unremarkable. There is a 2.4 cm simple cyst on the left ovary. DATA REPOSITORY:
[2024-09-04] MEDS: Normal Saline Flush 10 ML SYR IVP (12:37)
[2024-09-04] MEDS: Gadoterate meglumine 20 ML VIAL 18 ML IVP (12:39)
== END 2024-09-04 01:36 ==
LOC: DI 01:16
PROVIDERS: PCP Nurse Practitioner Adult Health; Visit Provider Obstetrics & Gynecology
DX: N94.89 Other specified conditions associated with female genital organs and menstrual cycle (principal)
CPT/HCPCS: 72197

== ENCOUNTER 2024-11-11 12:17 | Emergency (ER) | payer OTHER, SELFPAY ==
[2024-11-11 12:23] VITALS: BP 169/98; PULSE 77; RESP 18; TEMP 36.6; O2SAT 98
[2024-11-11 12:29] VITALS: BP 169/98; PULSE 77; RESP 18; TEMP 36.6; O2SAT 98
--- NOTE | 2024-11-11 12:37 | ED.GENADUL_ITS ---
Discharge Plan Disposition Patient Disposition: Home Condition: Stable Discharge Details Clinical Impression: Cellulitis of third toe of right foot Primary Care Provider: Marj Martinez ED Provider: Fortino Dobbs Home Meds and New Rx's Prescriptions: New cephalexin 500 mg capsule 500 mg PO QID 10 Days Qty: 40 0RF Continued cholecalciferol (vitamin D3) 25 mcg (1,000 unit) capsule 2,000 unit PO DAILY magnesium citrate 100 mg tablet 100 mg PO DAILY loratadine [Claritin] 10 mg tablet 10 mg PO DAILY amlodipine 5 mg tablet 5 mg PO DAILY Qty: 90 3RF bupropion HCl 150 mg tablet extended release 24 hr See Rx Instructions .ROUTE .COMPLEX Qty: 90 3RF Dose Instruction: TAKE 1 TABLET BY MOUTH EVERY MORNING Rx Instructions: TAKE 1 TABLET BY MOUTH EVERY MORNING carvedilol 12.5 mg tablet 12.5 mg PO BID Qty: 180 3RF losartan 100 mg tablet 100 mg PO .pm Qty: 90 3RF Rx Instructions: Blood pressure rosuvastatin 40 mg tablet See Rx Instructions .ROUTE .COMPLEX Qty: 90 3RF Dose Instruction: TAKE 1 TABLET BY MOUTH AT BEDTIME Rx Instructions: TAKE 1 TABLET BY MOUTH AT BEDTIME (DME) lancets [FreeStyle Lancets] 28 gauge misc 1 ea Miscellaneous DAILY Qty: 100 3RF Rx Instructions: E11.9 daily monitoring to maintain A1C less than 7 aspirin 81 mg tablet,delayed release (DR/EC) 81 mg PO DAILY famotidine 20 mg tablet See Rx Instructions .ROUTE .COMPLEX Qty: 90 3RF Dose Instruction: TAKE ONE TABLET BY MOUTH EVERY DAY Rx Instructions: TAKE ONE TABLET BY MOUTH EVERY DAY (DME) FreeStyle Lite Strips Strip See Rx Instructions .ROUTE .COMPLEX Qty: 100 4RF Dose Instruction: USE TO TEST BLOOD GLUCOSE ONCE DAILY Rx Instructions: USE TO TEST BLOOD GLUCOSE ONCE DAILY metformin 500 mg tablet extended release 24 hr See Rx Instructions .ROUTE .COMPLEX Qty: 360 3RF Dose Instruction: TAKE 2 TABLETS TWICE DAILY WITH FOOD (DISCONTINUE METFORMIN IMMEDIATE RELEASE) Rx Instructions: TAKE 2 TABLETS TWICE DAILY WITH FOOD (DISCONTINUE METFORMIN IMMEDIATE RELEASE) Discharge Instructions Instructions: Cephalexin, Cellulitis (Skin Infection), Adult ED Additional Instructions: You were seen in the emergency department for the cellulitis of the third toe of your right foot, I am starting on an antibiotic called cephalexin, please follow-up with your wound care and podiatry team soon as possible. He should see improvement by day 3 on antibiotics, please return to the emergency d epartment for any fever, severe increase in redness, red streaking up the leg or other emergent concerns. Referrals: Marj Maritnez NP [Primary Care Provider] - Discharge Data Discharge Date/Time-TO BE ENTERED AT DEPARTURE: 11/11/24 13:17 HPI General Date/Time Provider Initiated Documentation: 11/11/24 12:37 . HPI Narrative: 64 year-old female presents to ED today by POV/ambulating with a chief complaint of R third toe cellulitis, sees wound care at [facility] with onset over days to weeks. Quality described as not overly painful but has neuropathy- has noted increase in swelling and redness to toe, no radiation to red streaking up the foot, fever, severe pain. Severity is described as moderate. Palliating factors include Epsom salt soaks. Provoking factors include nothing specific. Patient not anticoagulated. Related Data Home Medications ?Medication ?Instructions ?Recorded ?Confirmed lancets 28 gauge (FreeStyle #100 ea 02/09/19 11/11/24 Lancets) aspirin 81 mg tablet,delayed 81 mg PO DAILY 05/17/19 11/11/24 release cholecalciferol (vitamin D3) 25 2,000 unit PO DAILY 01/27/24 11/11/24 mcg (1,000 unit) capsule loratadine 10 mg tablet (Claritin) 10 mg PO DAILY 01/27/24 11/11/24 magnesium citrate 100 mg tablet 100 mg PO DAILY 06/27/24 11/11/24 famotidine 20 mg tablet See Rx Instructions .Route 07/26/24 11/11/24 .COMPLEX #90 tabs amlodipine 5 mg tablet 5 mg PO DAILY #90 tabs 07/27/24 11/11/24 bupropion HCl 150 mg 24 hr tablet, See Rx Instructions .Route 07/27/24 11/11/24 extended release .COMPLEX #90 tabs carvedilol 12.5 mg tablet 12.5 mg PO BID CAD/HTN #180 tabs 07/27/24 11/11/24 losartan 100 mg tablet 100 mg PO .pm #90 tabs 07/27/24 11/11/24 rosuvastatin 40 mg tablet See Rx Instructions .Route 07/27/24 11/11/24 .COMPLEX #90 tabs blood sugar diagnostic (FreeStyle #100 strips 09/28/24 11/11/24 Lite Strips) metformin 500 mg tablet,extended See Rx Instructions .Route 10/02/24 11/11/24 release 24 hr .COMPLEX #360 tabs cephalexin 500 mg capsule 500 mg PO QID cellulitis 10 days 11/11/24 #40 caps Previous Rx's ?Medication ?Instructions ?Recorded lancets 28 gauge (FreeStyle #100 ea 02/09/19 Lancets) famotidine 20 mg tablet See Rx Instructions .Route 07/26/24 .COMPLEX #90 tabs amlodipine 5 mg tablet 5 mg PO DAILY #90 tabs 07/27/24 bupropion HCl 150 mg 24 hr tablet, See Rx Instructions .Route 07/27/24 extended release .COMPLEX #90 tabs carvedilol 12.5 mg tablet 12.5 mg PO BID CAD/HTN #180 tabs 07/27/24 losartan 100 mg tablet 100 mg PO .pm #90 tabs 07/27/24 rosuvastatin 40 mg tablet See Rx Instructions .Route 07/27/24 .COMPLEX #90 tabs blood sugar diagnostic (FreeStyle #100 strips 09/28/24 Lite Strips) metformin 500 mg tablet,extended See Rx Instructions .Route 10/02/24 release 24 hr .COMPLEX #360 tabs cephalexin 500 mg capsule 500 mg PO QID cellulitis 10 days 11/11/24 #40 caps Allergies Allergy/AdvReac Type Severity Reaction Status Date / Time latex Allergy Mild Itching Verified 11/11/24 12:30 atorvastatin AdvReac Intermediate myalgias Verified 11/11/24 12:30 lisinopril AdvReac Mild COUGH Verified 11/11/24 12:30 General Stated Complaint: Cellulitis BRAD: 3 Review of Systems All systems reviewed & are unremarkable except as noted in HPI and below Exam Narrative Exam Narrative: GENERAL APPEARANCE: Well-nourished, non-toxic, awake and alert, atraumatic, no acute distress. SKIN: Warm, pink, dry, erythematous and swollen right third toe with some crusty lesions, no sign of necrosis, right dorsalis pedis 2+, no lymphadenitis streaking up the right foot HEAD: Normocephalic, atraumatic, normal hair distribution for gender/age. EYES: Normal conjunctiva, no exudates on lids/lashes. ENT: Nares patent, no circumoral cyanosis, no facial swelling NECK: Supple, trachea midline, painless cervical ROM. LUNGS/CHEST: Non-labored respirations, normal A/P diameter, symmetrical expansion, no chest wall deformity HEART (CV/PV): Regular rate, no peripheral edema, no JVD. ABDOMEN: Soft, non-distended, no guarding. MSK: Normal ROM, no swelling/deformity to bilateral UEs or LEs, moving all extremities without weakness, no cyanosis, spine midline without tenderness, normal curvature. NEURO: Mental Status AAOx4 - alert to person, place, time, events No facial droop, no forehead involvement. Motor: No focal weakness - strength 5/5 in bilateral UEs and LEs, proximal and distal, symmetric. Sensory: sensation intact to light touch globally. Gait normal: patient ambulated without ataxia into ED room. PSYCH: euthymic, cooperative, pleasant, appropriate speech Course Vital Signs Vital signs: Vital Signs Temperature 36.6 C 11/11/24 12:23 Pulse 77 11/11/24 12:23 Respiratory Rate 18 11/11/24 12:23 Blood Pressure 169/98 H 11/11/24 12:23 Pulse Oximetry 98 11/11/24 12:23 Temperature 36.6 C 11/11/24 12:29 Pulse 77 11/11/24 12:29 Respiratory Rate 18 11/11/24 12:29 Blood Pressure 169/98 H 11/11/24 12:29 Blood Pressure Position Supine 11/11/24 12:29 Pulse Oximetry 98 11/11/24 12:29 Oxygen Delivery Method Room Air 11/11/24 12:29 Oxygen Flow Rate 0 11/11/24 12:29 Pain Level 0 11/11/24 12:29 Medical Decision Making This dictation utilizes [id number] dictation software and may contain unedited grammatical errors. 64 year-old female presents to ED today by POV/ambulating with a chief complaint of R third toe cellulitis, sees wound care at [facility] with onset over days to weeks. Quality described as not overly painful but has neuropathy- has noted increase in swelling and redness to toe, no radiation to red streaking up the foot, fever, severe pain. Severity is described as moderate. Palliating factors include Epsom salt soaks. Provoking factors include nothing specific. Bimal baac' medical history: T2DM, NSTEMI, hypertension, hyperlipidemia. Family and social history: Noncontributory. Pertinent exam findings / vital signs include erythematous and swollen right third toe with some crusty lesions, no sign of necrosis, right dorsalis pedis 2+, no lymphadenitis streaking up the right foot. Differential / pathologies of concern include cellulitis, unlikely osteomyelit is. Diagnostic studies of: -None. Interventions of: -Started the patient on cephalexin recommend a follow-up JAZZMINE with wound care/podiatry. ED Course/Assessment/Plan: 64-year-old female presents with right third toe infection, has known T2DM and sees wound care and podiatry at [facility], she has no signs of spreading infection and no necrotic lesions, I am starting her on cephalexin for trial of relief and recommend strict return criteria for any lymphadenitis, fever, drainage of pus from the wound despite treatment, necrosis I recommend she continue warm soaks and Epsom salt for her feet. Findings not consistent with sepsis, necrotic lesion, gangrene. Disposition of cellulitis of third toe of right foot. Patient verbalized understanding of the plan and return to ED criteria and engaged in shared decision making. Medical Records Medical records reviewed: Yes I reviewed the patient's medical records. Quality:SDOH Health Related Social Needs: No Data to Display PFSH All Active Problems (Updated 11/11/24 @ 13:04 by BIMAL Amaya) Cellulitis of third toe of right foot (Acute) PND (post-nasal drip) (Acute) Left hip pain (Acute) Non-pressure chronic ulcer of other part of right foot with fat layer exposed (Acute ~08/22/24) Weeks Podiatry Adnexal mass (Acute ~07/2024) R-08/2024 MRI describes as pedunculated fibroid Yearly ADULT CAREGIVER visits recommended Facial skin lesion (Acute) Hypertriglyceridemia (Acute ~04/2023) Urge incontinence of urine (Acute ~06/2022) Uro Type 2 diabetes mellitus with diabetic neuropathy, unspecified (Chronic ~2015) Adjustment disorder with depressed mood (Acute ~02/2021) Coronary artery disease (Chronic ~06/2019) [facility] 06/2019 s/p NSTEMI Subclinical hypothyroidism (Chronic 10/02/13) 09/2013 Unspecified hereditary and idiopathic peripheral neuropathy (Chronic 02/09/12) B/L FEET Hyperlipidemia (Chronic 01/07/12) LDL <70 goal per cardiology 09/14/2019 Essential hypertension (Chronic 07/26/13) Cardiac murmur (Chronic 09/27/17) ECHO 09/2017, mild LVH, mild mitral, preserved EF BMI 36.0-36.9,adult (Chronic 10/31/15) Pt lost 45lbs on the Omni diet. 2012. Regained in 2014. Pituitary microadenoma (Chronic ~08/2018) [place] [facility] 08/2018, transphenoidal resection; Recommend annual MRIs (every ~January) Medical History Chronic ulcer of right foot with fat layer exposed (~02/2022) Facial rhytids 01/17/24 [facility] Common wart 01/17/24 [facility] Microscopic hematuria Uro Repeat UAs normal Hallux valgus Osteoarthritis Onychomycosis of toenail Right 2nd & 3rd toes Normal colonoscopy Chronic cough PPI Osteomyelitis (~05/07/19) right foot, strept A and staph aureus 06/19/19 Diabetic Ulceration R Hallux, Cellulitis R Hallux ([facility] & ID managed) NSTEMI (non-ST elevated myocardial infarction) (~05/07/19) Cyst of left ovary (11/13/15) Hemorrhoids (01/07/12) Snoring Wedge pillow, elevate HOB, breathe rite strips, artificial saliva, position (side lying) 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 Uterine fibroids. Irreg menses. Nl EMBx. Colon polyps Hypercholesterolemia Benign essential hypertension Ovarian cyst 10/2015 L ovary 4x4.8cm. 03/2016 2x3x3 Diabetes mellitus Fibroid uterus Fundal [id number]. 2 smaller intramural fibroids. 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 EF 55-60% S/P cardiac catheterization (05/11/19) triple vessel disease, in need of CABG, delayed due to osteomyelitis, Status post transsphenoidal pituitary resection 08/24/2018 [facility] excision of sebaceous cyst L underarm. excision of ankle mass - benign Colonoscopy - IV Sedation (~2012) Reduction mammoplasty (~2000) Appendectomy Family History Mother , ID at age 53. Hypertensive disorder, systemic arterial Diabetes Mental disorder Anxiety Depression Heart disease Father , CVA at age 57. Hemophilia Brother , CANCER & ID at age 40. Personal history of malignant neoplasm MALIGNANT ENCAPSULATED SLOW-GROWING TUMOR AFFECTING CHEST WALL Heart disease RADIATION INDUCED S/P CANCER DX Maternal Aunt Diabetes Multiple sclerosis Maternal Uncle Diabetes Paternal Uncle Hemophilia Social History Smoking/Tobacco Use Status: Never Smoking risk assessment performed?: Yes Alcohol Intake: never Drug use: Never Substance use type: does not use Adopted: No Caregiver/Support person: No Foster care: No Household members: significant other Housing: house Number of Children: 0 Communication Needs: Corrective Lenses Education Level: college Details: Bachelor's Do you need help understanding health information?: Rarely current occupation: Community Health Worker Pets and animals: Yes (one) Pets and animals: dog(s) Sexually active: Yes Do you think of yourself as: straight/heterosexual Current gender identity: female What is your relationship status?: living with partner How often do you talk on the phone with friends or family?: once per week How often do you get together with friends or relatives?: once per week How often do you attend yazidi or islam services?: 4 or more times per year Do you belong to any clubs or organized social groups?: yes Panel score (0-1 are the most socially isolated patients): 3 What type of physical activity do you participate in: none Duration: decline to answer Frequency: decline to answer Joanne/Pentecostal: Scientology Seatbelt use: always Helmet use: Yes (No reason) Helmet use: never Drive intox or ride w/intox four horse hitch driver: No Water heater temp set <120 deg: Yes Working smoke detector in home: Yes Fire extinguisher in home: No Carbon monox detector in home: No Firearms in home: No Do you feel safe at home: Yes Do you feel safe in your relationship?: Yes Victim of physical abuse: No Victim of emotional abuse: No Victim of sexual abuse: No
== END 2024-11-11 13:17 | disposition home or self-care (01) ==
PROVIDERS: Emergency Provider Physician Assistant; PCP Nurse Practitioner Adult Health
DX: L03.031 Cellulitis of right toe (principal)
CPT/HCPCS: 99283; 99284

== ENCOUNTER 2025-01-26 00:23 | Outpatient (CLI) | payer OTHER, SELFPAY ==
--- NOTE | 2025-01-26 10:09 | DI.RAD_ITS ---
Exam(s) XR FOOT RT COMPLETE EXAM: XR FOOT RT COMPLETE CLINICAL HISTORY: CELLULITIS RT TOE L03.031. TECHNIQUE: 2D digital imaging was performed. Three views weight-bearing. COMPARISON: CR XR foot RT complete from 05/07/2019 FINDINGS: The toes are suboptimally profiled due to weight-bearing technique. BONES: There is a fracture versus post surgical changes of the mid and distal phalanges of the 3rd to e. The base of the middle phalanx appears intact. The distal portion of the middle phalanx and dist al phalanx appears severely deformed. The findings could be some postsurgical and/or be related to b rama destruction secondary to osteomyelitis. Heel spurs. JOINTS: No dislocation present. Hammertoe deformities. [id number] degenerative changes of the 1st MTP joint with [id number] hallux valgus. Degenerative changes at the sesamoid 1st metatar shun joint. Mild degenerative changes at the tarsal metatarsal joints and talonavicular joint. Some some flattening of the plantar arch. SOFT TISSUE: Swelling of the 3rd toe. No foreign body or abnormal gas collection. IMPRESSION: Deformity of the mid and distal phalanges of the 2nd toe may be secondary to prior surgery however garnica perimposed infection is not excluded. DATA REPOSITORY: RADIATION DOSE DELIVERED:
== END 2025-01-26 00:43 ==
LOC: DI 00:23
PROVIDERS: PCP Nurse Practitioner Adult Health; Visit Provider Podiatrist Foot & Ankle Surgery
DX: L03.031 Cellulitis of right toe (principal)
CPT/HCPCS: 73630

== ENCOUNTER 2025-01-26 00:57 | Outpatient (CLI) | payer OTHER, SELFPAY ==
[2025-01-26 10:25] LABS: Abs Immature Grans 0.05 10^3/uL (0.0-0.06); Absolute Basophil Count 0.07 10^3/uL (0.0-0.2); Absolute Eosinophil Count 0.13 10^3/uL (0.0-0.7); Absolute Monocyte Count 0.58 10^3/uL (0.1-0.8); Absolute Neutrophil Count 6.32 10^3/uL (1.2-6.7); Basophils % 0.8 %; Eosinophils % 1.5 %; HCT 36.4 % (36.0-46.0); HGB 11.8 g/dL (11.2-15.7); Immature Grans % 0.6 %; Lymphocytes % 16.4 %; MCHC 32.4 % (32.0-36.0); MCV 80 fL (80-95); MPV 9.8 fL (8.0-11.0); Monocytes % 6.8 %; Neutrophils % 73.9 %; Platelet Count 353 10^3/uL (130-400); RBC 4.54 10^6/uL (3.93-5.22); RDW 14.1 % (11.7-14.6); RDW-SD 40.9 fL; WBC 8.55 10^3/uL (4.4-10.8)
[2025-01-26 10:29] LABS: ESR 28 mm/hr (0-30)
[2025-01-26 11:02] LABS: ALT 13 U/L (14-59); AST 13 U/L (15-37); Albumin 3.3 g/dL (3.4-5.0); Alkaline Phosphatase 150 U/L (46-116); BUN 17 mg/dL (7-18); Bilirubin, Total 0.5 mg/dL (0.2-1.0); C-Reactive Protein 4.87 mg/dL (<or=0.5); CREATININE 0.8 mg/dL (0.55-1.02); Calcium 9.7 mg/dL (8.5-10.1); Chloride 101 mmol/L (98-107); Estimated GFR 83.26 (mL/min/1.73m2); Glucose 259 mg/dL (74-106); Potassium 3.8 mmol/L (3.5-5.1); Sodium 140 mmol/L (136-145); Total Protein 8.1 g/dL (6.4-8.2)
== END 2025-01-26 00:58 | disposition home or self-care (01) ==
LOC: LBO 00:58
PROVIDERS: PCP Nurse Practitioner Adult Health; Visit Provider Podiatrist Foot & Ankle Surgery
DX: L03.032 Cellulitis of left toe (principal)
CPT/HCPCS: 36415; 80053; 85652; 85025; 86140

== ENCOUNTER 2025-02-04 14:04 | Outpatient (CLI) | payer OTHER, SELFPAY ==
--- NOTE | 2025-02-04 | DI.RAD_ITS ---
Exam(s) XR RIBS RT PA CHEST 3V EXAM: XR RIBS RT PA CHEST 3V CLINICAL HISTORY: pleurodynia ICD-10: R07.81 TECHNIQUE: 2D digital imaging was performed.Five images were obtained. COMPARISON: CR XR RIBS RT W PA LAT CHEST from 12/31/2022 FINDINGS: MEDIASTINUM: Normal. HEART: Normal. PULMONARY VASCULATURE: Normal. LUNGS: The left lung is clear. There is a right basal infiltrate which may represent atelectasis or pneumonia.. PLEURAL SPACE: There is a small to moderate size right pleural effusion. No left pleural effusion. No pneumothorax. BONE:Normal. Sternal wires are in place. RIGHT RIBS: Normal. No displaced rib fractures are seen on the right. OTHER FINDINGS:Normal. IMPRESSION: 1. Small to moderate size right pleural effusion and right basilar infiltrate. 2. Unremarkable right ribs. DATA REPOSITORY: RADIATION DOSE DELIVERED:
--- NOTE | 2025-02-04 14:43 | DI.VRAD_ITS ---
PROCEDURE INFORMATION: Exam: XR Right Ribs with PA Chest Exam date and time: 02/04/2025 2:19 PM Age: 65 years old Clinical indication: Injury or trauma; Rib area; Blunt trauma (contusions or hematomas); Other: Pleurodynia icd; Injury details: Fall 3wks ago; Prior surgery; Surgery date: 6+ months; Surgery type: Open heart TECHNIQUE: Imaging protocol: Radiologic exam of the right ribs with PA chest. Views: 3 views COMPARISON: CR XR RIBS RT W PA LAT CHEST 12/31/2022 8:23 AM FINDINGS: Tubes, catheters and devices: There are sternal wires consistent with previous sternotomy incision. Lungs: Right lower lobe consolidation/collapse. Pleural spaces: There is a right pleural effusion. Heart/Mediastinum: Unremarkable. No cardiomegaly. Bones/joints: Moderate degenerative disease of bilateral acromioclavicular joints. IMPRESSION: Right pleural effusion with right lower lobe consolidation/collapse. No displaced rib fracture. Dictated and Authenticated by: Chi Pruitt MD. Orderin José Manuel Aleman MD
== END 2025-02-04 14:24 ==
PROVIDERS: PCP Nurse Practitioner Adult Health; Visit Provider Physician Assistant Medical
DX: R07.81 Pleurodynia (principal)
CPT/HCPCS: 71046; 71100

== ENCOUNTER 2025-02-15 01:13 | Outpatient (CLI) | payer OTHER, SELFPAY ==
--- NOTE | 2025-02-15 | DI.MRI_ITS ---
Exam(s) MR LOWER EXTREMITY RT WO/W EXAM: MR LOWER EXTREMITY RT WO/W CLINICAL HISTORY: CELLULITIS RT TOE,l03.031,SWELLING,? OSTEOMYELITIS TECHNIQUE: Multiplanar multisequence MRI was performed on 1.5 keya unit with both pre and post cont rast infused sequences CONTRAST: 18 mL Dotarem IV COMPARISON: CR XR FOOT RT COMPLETE from 01/26/2025 of 01/26/2025 were reviewed. FINDINGS: SKIN: There appears to be an ulcer over the distal aspect of the 3rd toe.. BONES/JOINTS: There is significant signal abnormality of the middle and distal phalanges of the 3rd t oe including confluent T1 hypo intensity/ghosting of the distal 2/3 of the middle phalanx and the ent sameer distal phalanx. These phalanges also exhibit bright signal on STIR images as well as enhancement following contrast injection. There is sparing of the proximal phalanx. No abnormal signal evident in the 3rd metacarpal nor in the other metacarpals nor in the phalanges of the other toes. There is hallux valgus and degenerative changes in the great toe metatarsophalangeal joint including joint space narrowing and there is also degenerative subarticular cyst in the medial aspect of the gr eat toe metatarsal head as well as marginal osteophytes. LISFRANC JOINT: Intact LIGAMENTS: No obvious tears evident. MUSCULOTENDINOUS STRUCTURES: No tendon tears nor tenosynovitis evident. SOFT TISSUES: No artifact to suggest foreign body. OTHER FINDINGS: There are degenerative changes at the articulation between the distal calcaneus and c uboid bone. Also significant degenerative changes at the 2nd and 3rd tarsometatarsal joints. IMPRESSION: 1. Findings are consistent with osteomyelitis involving the middle and distal phalanges of the 3rd-mi ddle toe. There is no abnormal signal within the proximal phalanx nor within the 3rd metatarsal. 2. There are osteoarthritic degenerative changes in the 2nd and 3rd tarsometatarsal joints as well as the articulation between the distal calcaneus and proximal cuboid. DATA REPOSITORY:
[2025-02-15] MEDS: Gadoterate meglumine 20 ML VIAL 18 ML IVP (12:47)
[2025-02-15] MEDS: Normal Saline Flush 10 ML SYR IVP (12:48)
== END 2025-02-15 01:33 ==
PROVIDERS: PCP Nurse Practitioner Adult Health; Visit Provider Podiatrist Foot & Ankle Surgery
DX: L03.031 Cellulitis of right toe (principal); M86.8X8 Other osteomyelitis, other site
CPT/HCPCS: 73720

== ENCOUNTER 2025-02-15 14:23 | Emergency (ER) | payer OTHER, SELFPAY ==
[2025-02-15 14:40] VITALS: BP 175/84; PULSE 84; RESP 16; O2SAT 96
[2025-02-15 14:42] VITALS: BP 175/84; PULSE 84; RESP 16; O2SAT 96
--- NOTE | 2025-02-15 14:45 | RT.EKG_ITS ---
APPROVED REPORT Exam: Resting ECG Reason for Exam: dyspnea Patient Location: E HR:78 bpm ECG Measurements Heart Rate 78 AXIS ND 157 P 0 QRSd 89 QRS 116 QT 409 T 20 QTc 465 Conclusion Sinus rhythm...normal P axis, V-rate 60- 99 Right axis deviation...QRS axis ( 91,269) Nonspecific T abnormalities, anterior leads...T <-0.10mV, V2-V4
--- NOTE | 2025-02-15 14:47 | W.ED.GENAD ---
Discharge Plan Disposition Patient Disposition: Home Condition: Stable Discharge Details Clinical Impression: Pleural effusion Primary Care Provider: Marj Martinez ED Provider: Chava De Jesus Home Meds and New Rx's Prescriptions: Continued cholecalciferol (vitamin D3) 25 mcg (1,000 unit) capsule 2,000 unit PO DAILY magnesium citrate 100 mg tablet 100 mg PO DAILY amlodipine 5 mg tablet 5 mg PO DAILY Qty: 90 3RF bupropion HCl 150 mg tablet extended release 24 hr See Rx Instructions .ROUTE .COMPLEX Qty: 90 3RF Dose Instruction: TAKE 1 TABLET BY MOUTH EVERY MORNING Rx Instructions: TAKE 1 TABLET BY MOUTH EVERY MORNING carvedilol 12.5 mg tablet 12.5 mg PO BID Qty: 180 3RF losartan 100 mg tablet 100 mg PO .pm Qty: 90 3RF Rx Instructions: Blood pressure rosuvastatin 40 mg tablet See Rx Instructions .ROUTE .COMPLEX Qty: 90 3RF Dose Instruction: TAKE 1 TABLET BY MOUTH AT BEDTIME Rx Instructions: TAKE 1 TABLET BY MOUTH AT BEDTIME pantoprazole 20 mg tablet,delayed release (DR/EC) 20 mg PO DAILY AM Qty: 90 3RF Rx Instructions: Best taken when on am empty stomach; FAILED H2 LORI celecoxib [Celebrex] 100 mg capsule 100 mg PO BID PRN (Reason: chest wall pain) Qty: 20 0RF (DME) lancets [FreeStyle Lancets] 28 gauge misc 1 ea Miscellaneous DAILY Qty: 100 3RF Rx Instructions: E11.9 daily monitoring to maintain A1C less than 7 (DME) FreeStyle Lite Strips Strip See Rx Instructions .ROUTE .COMPLEX Qty: 100 4RF Dose Instruction: USE TO TEST BLOOD GLUCOSE ONCE DAILY Rx Instructions: USE TO TEST BLOOD GLUCOSE ONCE DAILY metformin 500 mg tablet extended release 24 hr See Rx Instructions .ROUTE .COMPLEX Qty: 360 3RF Dose Instruction: TAKE 2 TABLETS TWICE DAILY WITH FOOD (DISCONTINUE METFORMIN IMMEDIATE RELEASE) Rx Instructions: TAKE 2 TABLETS TWICE DAILY WITH FOOD (DISCONTINUE METFORMIN IMMEDIATE RELEASE) Held aspirin 81 mg tablet,delayed release (DR/EC) 81 mg PO DAILY Discharge Instructions Additional Instructions: You have an appointment scheduled tomorrow at 8:30 AM with the general surgery group for a thoracentesis which is removal of fluid from the area between your lung and chest wall. If you have any worsening of symptoms or high fevers between now and then return to the emergency department for reevaluation HPI General Mode of arrival: ambulatory. Date/Time Provider Initiated Documentation: 02/15/25 14:26. Limitations to Documentation: no limitations. Information obtained by: patient. History of Present Illness 65 year old F presents to the emergency department with the chief complaint of sob, jCT chest shows large right sided effusion, described as severe, Patient started experiencing this month(s) (1.5) and it has been constant. No relieving factors improve symptom(s), No exacerbating factors reported . Patient notes shortness of breath; denies chest pain and nausea/vomiting. Patient did receive the following treatments prior to arrival, none Related Data Home Medications ?Medication ?Instructions ?Recorded ?Confirmed lancets 28 gauge (FreeStyle #100 ea 02/09/19 02/15/25 Lancets) aspirin 81 mg tablet,delayed 81 mg PO DAILY 05/17/19 02/15/25 release cholecalciferol (vitamin D3) 25 2,000 unit PO DAILY 01/27/24 02/15/25 mcg (1,000 unit) capsule magnesium citrate 100 mg tablet 100 mg PO DAILY 06/27/24 02/15/25 amlodipine 5 mg tablet 5 mg PO DAILY #90 tabs 07/27/24 02/15/25 bupropion HCl 150 mg 24 hr tablet, See Rx Instructions .Route 07/27/24 02/15/25 extended release .COMPLEX #90 tabs carvedilol 12.5 mg tablet 12.5 mg PO BID CAD/HTN #180 tabs 07/27/24 02/15/25 losartan 100 mg tablet 100 mg PO .pm #90 tabs 07/27/24 02/15/25 rosuvastatin 40 mg tablet See Rx Instructions .Route 07/27/24 02/15/25 .COMPLEX #90 tabs blood sugar diagnostic (FreeStyle #100 strips 09/28/24 02/15/25 Lite Strips) metformin 500 mg tablet,extended See Rx Instructions .Route 10/02/24 02/15/25 release 24 hr .COMPLEX #360 tabs pantoprazole 20 mg tablet,delayed 20 mg PO DAILY AM #90 tabs 12/21/24 02/15/25 release celecoxib 100 mg capsule (Celebrex) 100 mg PO BID PRN chest wall pain 03/26/25 03/27/25 #20 caps Previous Rx's ?Medication ?Instructions ?Recorded lancets 28 gauge (FreeStyle #100 ea 02/09/19 Lancets) amlodipine 5 mg tablet 5 mg PO DAILY #90 tabs 07/27/24 bupropion HCl 150 mg 24 hr tablet, See Rx Instructions .Route 07/27/24 extended release .COMPLEX #90 tabs carvedilol 12.5 mg tablet 12.5 mg PO BID CAD/HTN #180 tabs 07/27/24 losartan 100 mg tablet 100 mg PO .pm #90 tabs 07/27/24 rosuvastatin 40 mg tablet See Rx Instructions .Route 07/27/24 .COMPLEX #90 tabs blood sugar diagnostic (FreeStyle #100 strips 09/28/24 Lite Strips) metformin 500 mg tablet,extended See Rx Instructions .Route 10/02/24 release 24 hr .COMPLEX #360 tabs pantoprazole 20 mg tablet,delayed 20 mg PO DAILY AM #90 tabs 12/21/24 release celecoxib 100 mg capsule (Celebrex) 100 mg PO BID PRN chest wall pain 02/14/25 #20 caps Allergies Allergy/AdvReac Type Severity Reaction Status Date / Time latex Allergy Mild Itching Verified 02/15/25 14:43 atorvastatin AdvReac Intermediate myalgias Verified 02/15/25 14:43 lisinopril AdvReac Mild COUGH Verified 02/15/25 14:43 General Stated Complaint: SOB BRAD: 2 Review of Systems All systems reviewed & are unremarkable except as noted in HPI and below Constitutional Constitutional: Denies chills, Denies fever(s) and Denies weakness Cardiovascular Cardiovascular: Denies chest pain and Reports dyspnea Respiratory Respiratory: Denies cough and Reports dyspnea Gastrointestinal Gastrointestinal: Denies abdominal pain, Denies nausea and Denies vomiting Musculoskeletal Musculoskeletal: Denies joint swelling Neurologic Neurologic: Denies weakness Exam Const General: no acute distress Orientation: alert [facility] Head: normal to inspection Ears: external ears normal General nose exam: external nose normal Mouth: moist mucous membranes Eyes General: appearance normal, both eyes and all related structures Neck Neck: normal visual inspection Resp Effort & Inspection: normal respiratory effort and able to speak in complete sentences Auscultation: diminished lung sounds on the left Cardio Rate: regular rate Skin General skin exam: no rashes or lesions noted Neuro General: patient alert and patient oriented x3 Extrem General: normal to inspection Psych Mental Status: mental status grossly normal Course Vital Signs Vital signs: Vital Signs Pulse 84 02/15/25 14:40 Respiratory Rate 16 02/15/25 14:40 Blood Pressure 175/84 H 02/15/25 14:40 Pulse Oximetry 96 02/15/25 14:40 Pulse 84 02/15/25 14:42 Respiratory Rate 16 02/15/25 14:42 Blood Pressure 175/84 H 02/15/25 14:42 Blood Pressure Position Sitting 02/15/25 14:42 Pulse Oximetry 96 02/15/25 14:42 Oxygen Delivery Method Room Air 02/15/25 14:42 Oxygen Flow Rate 0 02/15/25 14:42 Pain Level 0 02/15/25 14:42 Medical Decision Making 65-year-old female with a history of coronary artery disease who will underwent bypass she says in 2019 comes in with 1/2 months of shortness of breath and feels like she cannot get air in on the right side of her chest. She says that started after she fell after tripping and landing on her back. She saw her PCP and had a negative chest x-ray, had continued symptoms on a CT chest done today which showed a large right sided pleural effusion. She denies any anginal type chest pain. She says when she takes a deep breath it hurts on the right side of her chest. She has diminished lung sounds on the right side, no JVD or leg swelling. I suspect she will need to have her pleural effusion drained, will check a CBC, CMP, troponins and proBNP though she is not clinically in CHF. Also check an LDH. Labs unremarkable, no leukocytosis so I doubt pneumonia as underlying cause. proBNP also negative. I spoke with Dr. Parry who did not feel effusion need to be drained emergently. He advised he can be drained in the office tomorrow or patient can be admitted to medicine and have it drained tomorrow morning. I discussed these options with the patient as well as offered to drain it myself. After discussion she chooses to be discharged follow-up tomorrow in their office at 8:30 AM. Given this has been going on for a month and a half well appearance, speaking full sentences with stable vital signs I feel this is reasonable. She will return if anything worsens in the meantime. Differential Diagnosis Differential Diagnosis: Transitive versus exudative effusion, rib contusion Lab Data Lab results reviewed: Yes I reviewed the patient's lab results. ECG Data Attestation: I personally reviewed and interpreted this ECG (s) as follows: Prior ECG tracings: available for review Interpretation: sinus rate of 78 no stemi Quality:SDOH Health Related Social Needs: No Data to Display PFSH All Active Problems (Updated 02/15/25 @ 15:51 by Chava De Jesus MD) Pleural effusion (Acute) Right-sided chest wall pain (Acute) Cough (Acute) Chronic cough (Chronic) PPI; H2 lori ineffective; see note 12/21/24 PND (post-nasal drip) (Acute) Left hip pain (Acute) Non-pressure chronic ulcer of other part of right foot with fat layer exposed (Acute ~08/22/24) [facility] Adnexal mass (Acute ~07/2024) R-08/2024 MRI describes as pedunculated fibroid Yearly [employer] visits recommended Facial skin lesion (Acute) Hypertriglyceridemia (Acute ~04/2023) Urge incontinence of urine (Acute ~06/2022) Uro Type 2 diabetes mellitus with diabetic neuropathy, unspecified (Chronic ~2015) Adjustment disorder with depressed mood (Acute ~02/2021) Coronary artery disease (Chronic ~06/2019) [facility] 06/2019 s/p NSTEMI Subclinical hypothyroidism (Chronic 10/02/13) 09/2013 Unspecified hereditary and idiopathic peripheral neuropathy (Chronic 02/09/12) B/L FEET Hyperlipidemia (Chronic 01/07/12) LDL <70 goal per cardiology 09/14/2019 Essential hypertension (Chronic 07/26/13) Cardiac murmur (Chronic 09/27/17) ECHO 09/2017, mild LVH, mild mitral, preserved EF BMI 36.0-36.9,adult (Chronic 10/31/15) Pt lost 45lbs on the Omni diet. 2012. Regained in 2014. Pituitary microadenoma (Chronic ~08/2018) [place] [facility] 08/2018, transphenoidal resection; Recommend annual MRIs (every ~January) Medical History Chronic ulcer of right foot with fat layer exposed (~02/2022) Facial rhytids 01/17/24 [facility] Common wart 01/17/24 [facility] Microscopic hematuria Uro Repeat UAs normal Hallux valgus Osteoarthritis Onychomycosis of toenail Right 2nd & 3rd toes Normal colonoscopy Osteomyelitis (~05/07/19) right foot, strept A and staph aureus 06/19/19 Diabetic Ulceration R Hallux, Cellulitis R Hallux ([facility] & ID managed) NSTEMI (non-ST elevated myocardial infarction) (~05/07/19) Cyst of left ovary (11/13/15) Hemorrhoids (01/07/12) Snoring Wedge pillow, elevate HOB, breathe rite strips, artificial saliva, position (side lying) 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 Uterine fibroids. Irreg menses. Nl EMBx. Colon polyps Hypercholesterolemia Benign essential hypertension Ovarian cyst 10/2015 L ovary 4x4.8cm. 03/2016 2x3x3 Diabetes mellitus Fibroid uterus Fundal [id number]. 2 smaller intramural fibroids. 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 EF 55-60% S/P cardiac catheterization (05/11/19) triple vessel disease, in need of CABG, delayed due to osteomyelitis, Status post transsphenoidal pituitary resection 08/24/2018 [facility] excision of sebaceous cyst L underarm. excision of ankle mass - benign Colonoscopy - IV Sedation (~2012) Reduction mammoplasty (~2000) Appendectomy Family History Mother , MT at age 53. Hypertensive disorder, systemic arterial Diabetes Mental disorder Anxiety Depression Heart disease Father , CVA at age 57. Hemophilia Brother , CANCER & MT at age 40. Personal history of malignant neoplasm MALIGNANT ENCAPSULATED SLOW-GROWING TUMOR AFFECTING CHEST WALL Heart disease RADIATION INDUCED S/P CANCER DX Maternal Aunt Diabetes Multiple sclerosis Maternal Uncle Diabetes Paternal Uncle Hemophilia Social History Smoking/Tobacco Use Status: Never Smoking risk assessment performed?: Yes Alcohol Intake: never Drug use: Never Substance use type: does not use Adopted: No Caregiver/Support person: No Foster care: No Household members: significant other Housing: house Number of Children: 0 Communication Needs: Corrective Lenses Education Level: college Details: Bachelor's Do you need help understanding health information?: Rarely current occupation: Community Health Worker Pets and animals: Yes (one) Pets and animals: dog(s) Sexually active: Yes Do you think of yourself as: straight/heterosexual Current gender identity: female What is your relationship status?: living with partner How often do you talk on the phone with friends or family?: once per week How often do you get together with friends or relatives?: once per week How often do you attend yazdanism or scientologist services?: 4 or more times per year Do you belong to any clubs or organized social groups?: yes Panel score (0-1 are the most socially isolated patients): 3 What type of physical activity do you participate in: none Duration: decline to answer Frequency: decline to answer Joanne/Sikhism: Mu-Ism Seatbelt use: always Helmet use: Yes (No reason) Helmet use: never Drive intox or ride w/intox log driver: No Water heater temp set <120 deg: Yes Working smoke detector in home: Yes Fire extinguisher in home: No Carbon monox detector in home: No Firearms in home: No Do you feel safe at home: Yes Do you feel safe in your relationship?: Yes Victim of physical abuse: No Victim of emotional abuse: No Victim of sexual abuse: No
[2025-02-15 14:56] LABS: Abs Immature Grans 0.03 10^3/uL (0.0-0.06); Absolute Basophil Count 0.08 10^3/uL (0.0-0.2); Absolute Eosinophil Count 0.26 10^3/uL (0.0-0.7); Absolute Lymphocyte Count 1.77 10^3/uL (1.2-3.4); Absolute Monocyte Count 0.69 10^3/uL (0.1-0.8); Absolute Neutrophil Count 6.08 10^3/uL (1.2-6.7); Basophils % 0.9 %; Eosinophils % 2.9 %; HCT 35.7 % (36.0-46.0); HGB 11.5 g/dL (11.2-15.7); Immature Grans % 0.3 %; Lymphocytes % 19.9 %; MCH 25.3 pg (27.0-33.0); MCHC 32.2 % (32.0-36.0); MCV 79 fL (80-95); MPV 9.4 fL (8.0-11.0); Monocytes % 7.7 %; Neutrophils % 68.3 %; Platelet Count 447 10^3/uL (130-400); RBC 4.55 10^6/uL (3.93-5.22); RDW-SD 39.6 fL; WBC 8.91 10^3/uL (4.4-10.8)
[2025-02-15 15:10] LABS: INR 1.1 (0.9-1.1); Prothrombin Time 11.1 sec (9.1-11.1)
[2025-02-15 15:21] LABS: ALT 16 U/L (14-59); AST 18 U/L (15-37); Alkaline Phosphatase 145 U/L (46-116); Anion Gap 10.8 mmol/L (3-11); BUN 16 mg/dL (7-18); Bilirubin, Total 0.3 mg/dL (0.2-1.0); CO2 27.2 mmol/L (21.0-32.0); CREATININE 0.7 mg/dL (0.55-1.02); Calcium 9.8 mg/dL (8.5-10.1); Chloride 103 mmol/L (98-107); Estimated GFR 97.12 (mL/min/1.73m2); Glucose 121 mg/dL (74-106); Magnesium 1.6 mg/dL (1.8-2.4); Potassium 3.7 mmol/L (3.5-5.1); Sodium 141 mmol/L (136-145); Total Protein 8.2 g/dL (6.4-8.2)
[2025-02-15 15:23] LABS: LDH 139 U/L (81-234)
[2025-02-15 15:31] LABS: NT-proBNP 70 pg/mL (<300); Troponin I 15 ng/L (<or=51)
== END 2025-02-15 16:09 | disposition home or self-care (01) ==
PROVIDERS: Emergency Provider Emergency Medicine; PCP Nurse Practitioner Adult Health
DX: J90 Pleural effusion, not elsewhere classified (principal); I10 Essential (primary) hypertension; I25.10 Atherosclerotic heart disease of native coronary artery without angina pectoris; I25.2 Old myocardial infarction; E11.40 Type 2 diabetes mellitus with diabetic neuropathy, unspecified; Z95.1 Presence of aortocoronary bypass graft; Z79.84 Long term (current) use of oral hypoglycemic drugs; Z79.82 Long term (current) use of aspirin
CPT/HCPCS: 36415; 80053; 86850; 86900; 86901; 93005; 99284; 83615; 83735; 83880; 84484; 85025; 85610; 85730; 93010

== ENCOUNTER 2025-02-16 15:55 | Inpatient (IN) | payer OTHER, SELFPAY ==
[2025-02-16] VITALS (11 sets, daily range): BP systolic 108–140; BP diastolic 70–105; PULSE 70–87; RESP 18–24; TEMP 36.1–36.8; O2SAT 91–97
--- NOTE | 2025-02-16 12:30 | DI.RAD_ITS ---
Exam(s) XR PORTABLE CHEST AP EXAM: XR PORTABLE CHEST AP CLINICAL HISTORY: Post-op thoracentesis. TECHNIQUE: 2D digital imaging was performed. COMPARISON: CR,XR XR RIBS RT PA CHEST 3V from 02/04/[address] CHEST WO from 02/15/2025 CT scan 02/15/2025 FINDINGS: Single AP portable view. Sternotomy wires again noted. Heart size normal and the mediastinum is not widened nor significantly shifted. Left lung remains clear. There appears to have been interval thoracentesis on the right side. The large pneumothorax which is now present is related to the removal of the large pleural effusion which was evident on yesterday's chest CT scan. The density in the right lower lobe is most probably related to the decreased volume -collapse of the right lower lobe but cannot also exclude the possibly that there is a mass in the ri ght lung at this level. IMPRESSION: Right hemithoracic post thoracentesis appearance. The large pneumothorax on the right side exists be cause of the large amount of fluid which has been removed from the pleural space and the lung has not yet completely expanded. Recommend serial chest x-rays. DATA REPOSITORY: RADIATION DOSE DELIVERED:
--- NOTE | 2025-02-16 12:48 | ROE_ITS ---
Operative Note Operative Note PRE-OP DIAGNOSIS: Right pleural effusion POST-OP DIAGNOSIS: same PROCEDURE: Right thoracentesis SURGEON: Laney Newman [facility] ANESTHESIA TYPE: Local By Surgeon Patient was transported to: same day Patient's condition: stable Findings: 1750 mL of clear dark red fluid Procedure Description: After obtaining informed consent, patient was brought to the procedure room. She was positioned sitting on the edge of the stretcher with her arms over a table. I used ultrasound guidance to locate the level of the effusion on the right lower chest. I marked the skin. I prepped and draped the skin in a sterile manner. I injected 1% lidocaine with epinephrine. I made a small sydnie in the skin with 11 blade scalpel. I also injected the pleura and aspirated some clear red fluid in the process. I then advanced an 8 Portuguese catheter over a large bore needle into the pleural space. Was able to draw back the same red fluid. I remove the needle and connected the catheter to tubing which was then connected to the Vacutainer. We removed a total of 1750 mL of clear but dark red fluid. Patient had quite a bit of right sided chest pain and coughing with the evacuation of the fluid. This settled down within a few minutes of the procedure. Once the fluid stopped running I removed the catheter and covered the site with gauze and tape. Patient was taken to recovery in stable condition. Disposition: Patient will have a chest x-ray in the recovery area. Assuming this looks good, she will be discharged home. Date of Procedure: 02/16/25
[2025-02-16 15:24] LABS: Clarity Cloudy; Nucleated Cells 3993 uL (0); Source Pleural
[2025-02-16 15:25] LABS: Mononuclear Cells 94 %; Other Cells 1 %; Polynuclear Cells 5 %; Source: Pleural
--- NOTE | 2025-02-16 15:54 | HPE_ITS ---
Date of service: 02/16/25 Time of Service: 16:12 Assessment and Plan Assessment and plan (1) Pneumothorax ex vacuo: Status: Acute Assessment and plan: Admit for observation, pain control, repeat chest x-ray. Things are stable she may be discharged home tomorrow morning. History of Present Illness Narrative: This patient had a thoracentesis procedure today which resulted in removal of a pleural effusion on the right side measuring over 1.7 L. She had coughing, wheezing, shortness of breath and during the procedure. Postprocedural chest x- ray shows lack of the lung expansion superiorly and inferiorly a good sized area of the lung which has not expanded consistent with pneumothorax ex vacuo. No current patient continues to have some desaturations with ambulation with an O2 sat down to 90 and some tachypnea and shortness of breath and agrees to stay overnight for observation. Review of Systems Narrative: the patient denies any chest pain other than the right posterior side of the flank, shortness of breath with exertion, wheezy cough. Complains of respirophasic pain. Denies nausea or vomiting. Denies swelling of lower extremities or pain with ambulation. Has active possible osteomyelitis of the right third toe confirmed yesterday with an MRI but not a confirmed tissue diagnosis yet. Remainder review of systems, 10 systems is negative. PFSH All Active Problems (Updated 02/16/25 @ 15:49 by Michelle Garcia MD) Pneumothorax ex vacuo (Acute) Pleural effusion (Acute) Right-sided chest wall pain (Acute) Cough (Acute) Chronic cough (Chronic) PPI; H2 lori ineffective; see note 12/21/24 PND (post-nasal drip) (Acute) Left hip pain (Acute) Non-pressure chronic ulcer of other part of right foot with fat layer exposed (Acute ~08/22/24) [facility] Adnexal mass (Acute ~07/2024) R-08/2024 MRI describes as pedunculated fibroid Yearly [employer] visits recommended Facial skin lesion (Acute) Hypertriglyceridemia (Acute ~04/2023) Urge incontinence of urine (Acute ~06/2022) Uro Type 2 diabetes mellitus with diabetic neuropathy, unspecified (Chronic ~2015) Adjustment disorder with depressed mood (Acute ~02/2021) Coronary artery disease (Chronic ~06/2019) [facility] 06/2019 s/p NSTEMI Subclinical hypothyroidism (Chronic 10/02/13) 09/2013 Unspecified hereditary and idiopathic peripheral neuropathy (Chronic 02/09/12) B/L FEET Hyperlipidemia (Chronic 01/07/12) LDL <70 goal per cardiology 09/14/2019 Essential hypertension (Chronic 07/26/13) Cardiac murmur (Chronic 09/27/17) ECHO 09/2017, mild LVH, mild mitral, preserved EF BMI 36.0-36.9,adult (Chronic 10/31/15) Pt lost 45lbs on the Omni diet. 2012. Regained in 2014. Pituitary microadenoma (Chronic ~08/2018) [facility] 08/2018, transphenoidal resection; Recommend annual MRIs (every ~January) Medical History Chronic ulcer of right foot with fat layer exposed (~02/2022) Facial rhytids 01/17/24 [facility] Common wart 01/17/24 [facility] Microscopic hematuria Uro Repeat UAs normal Hallux valgus Osteoarthritis Onychomycosis of toenail Right 2nd & 3rd toes Normal colonoscopy Osteomyelitis (~05/07/19) right foot, strept A and staph aureus 06/19/19 Diabetic Ulceration R Hallux, Cellulitis R Hallux ([facility] & ID managed) NSTEMI (non-ST elevated myocardial infarction) (~05/07/19) Cyst of left ovary (11/13/15) Hemorrhoids (01/07/12) Snoring Wedge pillow, elevate HOB, breathe rite strips, artificial saliva, position (side lying) 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 Uterine fibroids. Irreg menses. Nl EMBx. Colon polyps Hypercholesterolemia Benign essential hypertension Ovarian cyst 10/2015 L ovary 4x4.8cm. 03/2016 2x3x3 Diabetes mellitus Fibroid uterus Fundal [id number]. 2 smaller intramural fibroids. 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 EF 55-60% S/P cardiac catheterization (05/11/19) triple vessel disease, in need of CABG, delayed due to osteomyelitis, Status post transsphenoidal pituitary resection 08/24/2018 [facility] excision of sebaceous cyst L underarm. excision of ankle mass - benign Colonoscopy - IV Sedation (~2012) Reduction mammoplasty (~2000) Appendectomy Family History Mother , [place] at age 53. Hypertensive disorder, systemic arterial Diabetes Mental disorder Anxiety Depression Heart disease Father , CVA at age 57. Hemophilia Brother , CANCER & [place] at age 40. Personal history of malignant neoplasm MALIGNANT ENCAPSULATED SLOW-GROWING TUMOR AFFECTING CHEST WALL Heart disease RADIATION INDUCED S/P CANCER DX Maternal Aunt Diabetes Multiple sclerosis Maternal Uncle Diabetes Paternal Uncle Hemophilia Social History Smoking/Tobacco Use Status: Never Smoking risk assessment performed?: Yes Alcohol Intake: never Drug use: Never Substance use type: does not use Adopted: No Caregiver/Support person: No Foster care: No Household members: significant other Housing: house Number of Children: 0 Communication Needs: Corrective Lenses Education Level: college Details: Bachelor's Do you need help understanding health information?: Rarely current occupation: Community Health Worker Pets and animals: Yes (one) Pets and animals: dog(s) Sexually active: Yes Do you think of yourself as: straight/heterosexual Current gender identity: female What is your relationship status?: living with partner How often do you talk on the phone with friends or family?: once per week How often do you get together with friends or relatives?: once per week How often do you attend mandaeism or mandaen services?: 4 or more times per year Do you belong to any clubs or organized social groups?: yes Panel score (0-1 are the most socially isolated patients): 3 What type of physical activity do you participate in: none Duration: decline to answer Frequency: decline to answer Joanne/Tenriism: Hinduism Seatbelt use: always Helmet use: Yes (No reason) Helmet use: never Drive intox or ride w/intox pack train driver: No Water heater temp set <120 deg: Yes Working smoke detector in home: Yes Fire extinguisher in home: No Carbon monox detector in home: No Firearms in home: No Do you feel safe at home: Yes Do you feel safe in your relationship?: Yes Victim of physical abuse: No Victim of emotional abuse: No Victim of sexual abuse: No Meds Allergies and Home Medications Allergies Allergy/AdvReac Type Severity Reaction Status Date / Time latex Allergy Mild Itching Verified 02/16/25 11:31 atorvastatin AdvReac Intermediate myalgias Verified 02/16/25 11:31 lisinopril AdvReac Mild COUGH Verified 02/16/25 11:31 Home Medications ?Medication ?Instructions ?Recorded ?Confirmed ?Type lancets 28 gauge (FreeStyle #100 ea 02/09/19 02/16/25 Rx Lancets) aspirin 81 mg tablet,delayed 81 mg PO DAILY 05/17/19 02/16/25 History release cholecalciferol (vitamin D3) 25 2,000 unit PO DAILY 01/27/24 02/16/25 History mcg (1,000 unit) capsule magnesium citrate 100 mg tablet 100 mg PO DAILY 06/27/24 02/16/25 History amlodipine 5 mg tablet 5 mg PO DAILY #90 tabs 07/27/24 02/16/25 Rx bupropion HCl 150 mg 24 hr tablet, See Rx Instructions .Route 07/27/24 02/16/25 Rx extended release .COMPLEX #90 tabs carvedilol 12.5 mg tablet 12.5 mg PO BID CAD/HTN #180 tabs 07/27/24 02/16/25 Rx losartan 100 mg tablet 100 mg PO .pm #90 tabs 07/27/24 02/16/25 Rx rosuvastatin 40 mg tablet See Rx Instructions .Route 07/27/24 02/16/25 Rx .COMPLEX #90 tabs blood sugar diagnostic (FreeStyle #100 strips 09/28/24 02/16/25 Rx Lite Strips) metformin 500 mg tablet,extended See Rx Instructions .Route 10/02/24 02/16/25 Rx release 24 hr .COMPLEX #360 tabs pantoprazole 20 mg tablet,delayed 20 mg PO DAILY AM #90 tabs 12/21/24 02/16/25 Rx release celecoxib 100 mg capsule (Celebrex) 100 mg PO BID PRN chest wall pain 02/14/25 02/16/25 Rx #20 caps Exam Narrative Exam Narrative: Constitutional: appears well, alert, oriented, NAD HEENT: normal appearance, head atraumatic, Neck midline and supple Chest: clear to auscultation but with raspy wheezing and coughing paroxysms with deep breath Cor: RRR S1 S2 no murmur abdo obese Skin warm and dry Neuro: grossly intact, normal gait Ext no swelling, right 3rd toe with mild erythema and good cap refill Psych: normal mood and affect Results Imaging Chest x-ray: report reviewed and image reviewed Labs Labs: Laboratory Results - last 24 hr 02/16/25 02/16/25 02/16/25 12:20 12:20 15:07 Total Protein Cancelled Fluid Source Pleural Pleural Fluid Color RED Fluid Clarity Cloudy Fluid pH 7.0 Fluid WBC 3993 Fld Polynuclear WBCs % 5 Fluid Mononuclear Cell 94 Fluid Other Cells 1 Last Vital Signs Temp 36.3 C L 02/16/25 14:55 Pulse 80 02/16/25 14:55 Resp 24 02/16/25 14:55 BP 127/83 02/16/25 14:55 Pulse Ox 95 02/16/25 14:55 Time Spent Time spent with Patient: 40-54 minutes Time was spent: preparing to see the patient(eg.review tests), obtaining and/or reviewing separately otained hiistory, referring, communicating with other health acute care physical therapist, indepentently interpreting results and counseling the patient
[2025-02-16] MEDS: Acetaminophen 500 MG TAB 1000 MG PO ×2 (18:01→21:35)
[2025-02-16] MEDS: metFORMIN C.R. 500 MG TABCR 1000 MG PO (18:01)
--- NOTE | 2025-02-16 18:24 | W.PC.ACHO ---
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 excision of ankle mass - benign Colonoscopy - IV Sedation (~2012) Reduction mammoplasty (~2000) Appendectomy Most Recent Vital Signs Temperature 36.6 C 02/16/25 16:30 Pulse 87 02/16/25 16:30 Pulse Rhythm Regular 02/16/25 11:43 Respiratory Rate 18 02/16/25 16:30 Respiratory Effort Normal 02/16/25 16:30 Respiratory Depth Normal 02/16/25 16:30 Respiratory Pattern Normal 02/16/25 16:30 Blood Pressure 137/85 02/16/25 16:30 Pulse Oximetry 95 02/16/25 16:30 Oxygen Delivery Method Room Air 02/16/25 16:30 Oxygen Flow Rate 0 02/16/25 16:30 Pain Level 1 02/16/25 16:30 Allergies latex Allergy (Mild, Verified 02/16/25 11:31) Itching atorvastatin Adverse Reaction (Intermediate, Verified 02/16/25 11:31) myalgias lisinopril Adverse Reaction (Mild, Verified 02/16/25 11:31) COUGH Active Medications Generic Name Dose Route Start Last Admin Trade Name Freq PRN Reason Stop Dose Admin Acetaminophen 1,000 mg 02/16/25 16:00 02/16/25 18:01 Acetaminophen 500 Mg Tab PO 03/18/25 15:59 1,000 mg Q6H FANI Administration Metformin HCl 1,000 mg 02/16/25 17:00 02/16/25 18:01 Metformin C.R. 500 Mg Tabcr PO 1,000 mg BID@0800,1700 FANI Administration Diet Orders Category Date Time Status Diabetes Consistent CHO/Heart Healthy [DIET] Nutrition 02/16/25 Dinner Active Diagnostics 02/16/25 02/16/25 02/16/25 Range/Units 15:07 12:20 12:20 Total Protein Cancelled Fluid Type Pending Fluid Source Pleural Pleural Fluid Color RED Fluid Clarity Cloudy Fluid pH 7.0 Fluid WBC 3993 (0) uL Fld Polynuclear WBCs % 5 % Fluid Mononuclear Cell 94 % Fluid Other Cells 1 % Fluid Glucose Pending Fluid Total Protein Pending Fluid Albumin Pending Fluid LDH Pending AFB Smear Pending AFB Culture Final Res Pending Path Cons Comment Pending 02/16/25 Range/Units 12:20 Total Protein Fluid Type Pending Fluid Source Fluid Color Fluid Clarity Fluid pH Fluid WBC (0) uL Fld Polynuclear WBCs % % Fluid Mononuclear Cell % Fluid Other Cells % Fluid Glucose Fluid Total Protein Fluid Albumin Fluid LDH AFB Smear AFB Culture Final Res Path Cons Comment 02/16/25 12:20 Body Fluid Culture - Pending Pleural - Right Gram Stain - Final 02/16/25 12:20 Anaerobic Culture - Pending Pleural - Right [id number] Documentation Fingerstick Glucose Start: 02/16/25 11:50 Freq: Status: Complete Protocol: Activity Type Activity Date Activity User E-sign Co-sign Detail Recorded Client Recorded Date Recorded By Document 02/16/25 11:50 N.ADAR [id number] 02/16/25 11:50 N.ADAR Fingerstick Glucose Start: 02/16/25 11:49 Freq: Status: Complete Protocol: Activity Type Activity Date Activity User E-sign Co-sign Detail Recorded Client Recorded Date Recorded By Document 02/16/25 11:48 BKG DAEMON(5) [id number] 02/16/25 11:49 BKG DAEMON(6) Fingerstick Glucose Start: 02/16/25 16:02 Freq: .Fasting Status: Active Protocol: Activity Type Activity Date Activity User E-sign Co-sign Detail Recorded Client Recorded Date Recorded By Document 02/16/25 17:02 BKG DAEMON(7) [id number] 02/16/25 17:10 BKG DAEMON(8) Intake and Output - 24 Hour Total 02/16/25 09:33 thru 02/16/25 16:30 Weight 88.4 kg Other: Urine Appearance Clear Emesis Description None Falls Risk Assessment History of Falls No History 02/16/25 16:30 Contributing Factors No Factors 02/16/25 16:30 Ambulatory Aids Independent 02/16/25 16:30 Tubes/Lines W/no contributing factors 02/16/25 16:30 Gait Evaluation No gait disturbance 02/16/25 16:30 Cognition No cognitive impairment 02/16/25 16:30 Fall Total Score 10 02/16/25 16:30 Level of Risk Standard/Low Risk 02/16/25 16:30 Problems (Last Reviewed 02/16/25 @ 11:39 by Beckie Powell RN) Pneumothorax ex vacuo (Acute) v v v v v v v v v Sending and/or Receiving Nurses: Please use comment section below to note any information pertinent to the patient hand-off not included above. Information / Comments: Report received from: FOOT TENDER @ [id number] at bedside
[2025-02-16] MEDS: Rosuvastatin 20 MG TAB 40 MG PO (20:20)
[2025-02-16] MEDS: Carvedilol 12.5 MG TAB PO (20:21)
[2025-02-16] MEDS: Losartan 50 MG TAB 100 MG PO (20:21)
[2025-02-16] MEDS: Celecoxib 100 MG CAP PO (20:21)
[2025-02-16] MEDS: Normal Saline Flush 10 ML SYR IVP (20:23)
--- NOTE | 2025-02-17 | DI.RAD_ITS ---
Exam(s) XR PORTABLE CHEST AP POST LINE EXAM: XR PORTABLE CHEST AP POST LINE CLINICAL HISTORY: chest tube placement right. TECHNIQUE: 2D digital imaging was performed. COMPARISON: CR,XR XR CHEST 2V PA LATERAL from 02/17/2025 FINDINGS: Single AP portable view. This is a chest x-ray performed today (02/17/2025). There has been interval placement of a large caliber right chest tube. Its distal tip is in the apex region. There has been re-expansion of the right lung with only small remaining pneumothorax. Moderate amoun t of right pleural fluid, less than previous when compared to earlier today. There is infiltrate in the lower right lung field either within the right lower lobe or right middle lobe, or both. This infiltrate may be the etiology of the pleural effusion or may be secondary to th e right lower lobe having been collapsed by the large right pleural effusion. This will require clos e follow-up to resolution. IMPRESSION: Interval placement of right chest tube. Re-expansion of the right lung with less than 10 percent rem aining pneumothorax.The size of the right pleural effusion has decreased. Right lower lung infiltrat e as discussed above. Right chest wall and right axillary subcutaneous emphysema noted, also with some extension into the r ight-side of the neck. However, the amount of subcutaneous emphysema does not appear to have signifi cantly increased since placement of the large caliber chest tube today. The left lung remains clear and there is no pleural effusion or pneumothorax on the left side DATA REPOSITORY: RADIATION DOSE DELIVERED:
[2025-02-17] MEDS: Acetaminophen 500 MG TAB 1000 MG PO ×4 (04:59→21:46)
--- NOTE | 2025-02-17 08:00 | DI.RAD_ITS ---
Exam(s) XR CHEST 2V PA LATERAL EXAM: XR CHEST 2V PA LATERAL CLINICAL HISTORY: follow up OTX. TECHNIQUE: 2D digital imaging was performed. COMPARISON: CR XR PORTABLE CHEST AP from 02/16/2025 FINDINGS: 2 views: Again noted are sternotomy wires. Heart size is normal. The mediastinum is not widened nor shifted. Left lung remains clear. However, there has been interval reaccumulation of a moderate-large right p leural effusion when compared to the post thoracentesis image performed yesterday. Also ipsilateral pneumothorax again noted. There is subcutaneous emphysema over the lateral right chest wall again ev ident, similar to yesterday. IMPRESSION: Significant re-accumulation of right pleural effusion. Hydropneumothorax. Left side remains unremarkable. There is no mediastinal shift. DATA REPOSITORY: RADIATION DOSE DELIVERED:
--- NOTE | 2025-02-17 08:30 | DI.VRAD_ITS ---
Addendum created by Renetta Valencia MD on 02/17/2025 8:34:43 AM EDT: THIS REPORT CONTAINS FINDINGS THAT MAY BE CRITICAL TO PATIENT CARE. Michelle Toney has seen the report and has no questions at this time. Initial report created on 02/17/2025 8:29:40 AM EDT: PROCEDURE INFORMATION: Exam: XR Chest Exam date and time: 02/17/2025 8:02 AM Age: 65 years old Clinical indication: Condition or disease; Other: Follow up; Prior surgery; Surgery date: 6+ months; Surgery type: Chest surgery TECHNIQUE: Imaging protocol: Radiologic exam of the chest. Views: 2 views. COMPARISON: CR XR PORTABLE CHEST AP 02/16/2025 1:11 PM FINDINGS: Lungs: No focal consolidation seen. Pleural spaces: Increase in right hydropneumothorax. Heart/Mediastinum: No cardiomegaly. Bones/joints: No acute abnormality. Soft tissues: Gas in the right chest wall. IMPRESSION: Increased right hydropneumothorax. Dictated and Authenticated by: Renetta Valencia MD. Orderin Radha Martinez MD
[2025-02-17] MEDS: Lactated Ringers 1,000 ML 100 ML IV (08:45)
[2025-02-17] MEDS: Normal Saline Flush 10 ML SYR IVP ×3 (08:46→19:53)
[2025-02-17] MEDS: Ondansetron 4 MG/2 ML VIAL IVP (09:01)
[2025-02-17] MEDS: MORPHine 2 MG/ML SYR IVP ×2 (09:02→22:30)
--- NOTE | 2025-02-17 09:38 | INITIAL_ITS ---
Date of service: 02/17/25 Time of Service: 09:38 Care Management Initial Assmt Initial Assessment Reason for Hospitalization: pneumothorax Functional Status/Living Situation Patient Presentation: Horace was sitting up in bed when CM met with her. She engaged easily with CM, known to her as a professional colleague. Horace works for [employer] and has had many mutual clients with the [facility] Care management team. Horace was admitted with a pneumothorax. She reported that she fell several weeks ago on ice and injured her back and chest. She was unaware of any actual injury but over time began to have increasing pain and shortness of breath, especially with exertion. Horace stated that she sought medical care on several occasions. On 02/04/25 she had a chest Xray which showed a small to moderate right pleural effusion and right basilar infiltrate. On 02/14/25 she saw her provider and a CT of the chest was ordered. It was completed on 02/15/25 and revealed a large right pleural effusi on and collapse of the right middle lobe and right lower lobe. She was advised to go to the ED and then to follow up with surgery the next day for drainage of the effusion. Horace had a thoracentesis on 02/16/25 and was subsequently admitted to the hospital. On the morning of 02/17/25 a chest tube was inserted as a chest Xray indicated there was a re-accumulation of the pleural effusion. Horace shared that today she is feeling much better with the chest tube. the effusion was uncomfortable and she was experiencing trouble breathing with very little exertion. 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 She does not have any children. She id independent at baseline and does not receive any community services. . Town of Residence: [facility] Resides with: Other (partner Shashank) Employment Status: Employed Instrumental Activities of Daily Living (ADLs): Independent Medications Medication Management: No Issues/Barriers identified Physical Functioning/Mobility Assistive Device: none Advance Directives Advance Directives: Do you have an Advance Directive: Y 10/13/19 15:27 AD On File at [facility]: Y 10/13/19 15:27 Date Asked 11/05/20 01/29/21 11:36 AD Date Reviewed 02/16/25 02/16/25 09:42 COLST On File at [facility] COLST Date Scanned Code Status Resuscitation Status Full Code Insurance Coverage/Financial Issues Insurance: Aimena Care Team Visit Care Team Role Provider Type Marj Martinez NP Primary Care Provider NURSE PRACTITIONER Michelle Garcia MD Admit Provider MD BRASHER STAFF PHYSICIAN Attending Provider Discharge Potential Discharge Needs: PCP F/U Appt Anticipated Barriers to Discharge: None Identified Patient/Family Education Needs: Review discharge instructions, discuss Ask Me Three Transportation: Private vehicle Plan: Anticipate Bessie will be discharged home with no new services when medically sta ble. She will follow up with her PCP and plan of care and transport with family. CM will follow and continue to assess for discharge needs. Social Determinants of Health Screening Social Determinants of Health last assessed: 02/17/25 Will the Patient Participate in the Screening?: Yes Do you worry about having a steady place to live?: no Problems where you live: no known problems In the past 12 months, have you had to go without electric, gas, oil or water in your home?: yes Have you or anyone in your house had to go without enough food to eat?: no Has lack of transportation kept you from medical appointments or from doing things needed for daily living?: no Has anyone in your life made you feel unsafe or unsupported?: no How hard is it for you to pay for the very basics like food, housing, medical care, and heating? Would you say it is:: Somewhat hard Do you want help finding or keeping work or a job?: I do not need or want help If for any reason you need help with day-to-day activities such as bathing, preparing meals, shopping, managing finances, etc., do you get the help you need?: I don?t need any help How often do you feel lonely or isolated from those around you?: Never Do you speak a language other than Sinhala at home?: Yes Does the patient want assistance with any of the above?: Yes Social Determinants of Health Comments([facility] Details): Options for help with electric and gas Health Related Social Needs Health related social needs: material hardship(utilities) (Z59.12), problems related to housing/economic circumstances (Z59.89) and education (Z55.6) PFSH All Active Problems (Updated 02/16/25 @ 15:49 by Michelle Garcia MD) Pneumothorax ex vacuo (Acute) Pleural effusion (Acute) Right-sided chest wall pain (Acute) Cough (Acute) Chronic cough (Chronic) PPI; H2 lori ineffective; see note 12/21/24 PND (post-nasal drip) (Acute) Left hip pain (Acute) Non-pressure chronic ulcer of other part of right foot with fat layer exposed (Acute ~08/22/24) [facility] Adnexal mass (Acute ~07/2024) R-08/2024 MRI describes as pedunculated fibroid Yearly AUDIOVISUAL EQUIPMENT OPERATOR visits recommended Facial skin lesion (Acute) Hypertriglyceridemia (Acute ~04/2023) Urge incontinence of urine (Acute ~06/2022) Uro Type 2 diabetes mellitus with diabetic neuropathy, unspecified (Chronic ~2015) Adjustment disorder with depressed mood (Acute ~02/2021) Coronary artery disease (Chronic ~06/2019) [facility] 06/2019 s/p NSTEMI Subclinical hypothyroidism (Chronic 10/02/13) 09/2013 Unspecified hereditary and idiopathic peripheral neuropathy (Chronic 02/09/12) B/L FEET Hyperlipidemia (Chronic 01/07/12) LDL <70 goal per cardiology 09/14/2019 Essential hypertension (Chronic 07/26/13) Cardiac murmur (Chronic 09/27/17) ECHO 09/2017, mild LVH, mild mitral, preserved EF BMI 36.0-36.9,adult (Chronic 10/31/15) Pt lost 45lbs on the Omni diet. 2012. Regained in 2014. Pituitary microadenoma (Chronic ~08/2018) [facility] 08/2018, transphenoidal resection; Recommend annual MRIs (every ~January) Medical History Chronic ulcer of right foot with fat layer exposed (~02/2022) Facial rhytids 01/17/24 [facility] Common wart 01/17/24 [facility] Microscopic hematuria Uro Repeat UAs normal Hallux valgus Osteoarthritis Onychomycosis of toenail Right 2nd & 3rd toes Normal colonoscopy Osteomyelitis (~05/07/19) right foot, strept A and staph aureus 06/19/19 Diabetic Ulceration R Hallux, Cellulitis R Hallux ([facility] & ID managed) NSTEMI (non-ST elevated myocardial infarction) (~05/07/19) Cyst of left ovary (11/13/15) Hemorrhoids (01/07/12) Snoring Wedge pillow, elevate HOB, breathe rite strips, artificial saliva, position (side lying) 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 Uterine fibroids. Irreg menses. Nl EMBx. Colon polyps Hypercholesterolemia Benign essential hypertension Ovarian cyst 10/2015 L ovary 4x4.8cm. 03/2016 2x3x3 Diabetes mellitus Fibroid uterus Fundal [id number]. 2 smaller intramural fibroids. 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 EF 55-60% S/P cardiac catheterization (05/11/19) triple vessel disease, in need of CABG, delayed due to osteomyelitis, Status post transsphenoidal pituitary resection 08/24/2018 [facility] excision of sebaceous cyst L underarm. excision of ankle mass - benign Colonoscopy - IV Sedation (~2012) Reduction mammoplasty (~2000) Appendectomy Family History Mother , [place] at age 53. Hypertensive disorder, systemic arterial Diabetes Mental disorder Anxiety Depression Heart disease Father , CVA at age 57. Hemophilia Brother , CANCER & [place] at age 40. Personal history of malignant neoplasm MALIGNANT ENCAPSULATED SLOW-GROWING TUMOR AFFECTING CHEST WALL Heart disease RADIATION INDUCED S/P CANCER DX Maternal Aunt Diabetes Multiple sclerosis Maternal Uncle Diabetes Paternal Uncle Hemophilia Social History Smoking/Tobacco Use Status: Never Smoking risk assessment performed?: Yes Alcohol Intake: never Drug use: Never Substance use type: does not use Adopted: No Caregiver/Support person: No Foster care: No Household members: significant other Housing: house Number of Children: 0 Communication Needs: Corrective Lenses Education Level: college Details: Bachelor's Do you need help understanding health information?: Rarely current occupation: Community Health Worker Pets and animals: Yes (one) Pets and animals: dog(s) Sexually active: Yes Do you think of yourself as: straight/heterosexual Current gender identity: female What is your relationship status?: living with partner How often do you talk on the phone with friends or family?: once per week How often do you get together with friends or relatives?: once per week How often do you attend latter day or rastafarian services?: 4 or more times per year Do you belong to any clubs or organized social groups?: yes Panel score (0-1 are the most socially isolated patients): 3 What type of physical activity do you participate in: none Duration: decline to answer Frequency: decline to answer Joanne/Hindu: Alevism Seatbelt use: always Helmet use: Yes (No reason) Helmet use: never Drive intox or ride w/intox lokie driver: No Water heater temp set <120 deg: Yes Working smoke detector in home: Yes Fire extinguisher in home: No Carbon monox detector in home: No Firearms in home: No Do you feel safe at home: Yes Do you feel safe in your relationship?: Yes Victim of physical abuse: No Victim of emotional abuse: No Victim of sexual abuse: No
--- NOTE | 2025-02-17 09:44 | PGE_ITS ---
Date of Service Date of service: 02/17/25 Time of Service: 09:44 Assessment and Plan Assessment and plan (1) Pneumothorax ex vacuo: Status: Acute Assessment and plan: Pneumothorax is now converted to hydropneumothorax. Since etiology is still uncertain and even though it may not be successful in inflating the lung, I feel that a chest tube is indicated to at least try to evacuate the fluid for more than 1 day and try to get the lung reexpanded. She agrees to the chest tube placements. I explained the procedure of the insertion of the right chest tube including the use of the local anesthetic and that we will give her a dose of morphine for the procedure. She understand that the risks include bleeding at the site and persistent hydropneumothorax. She agrees and signed consent for right chest tube insertion. (2) Essential hypertension: Status: Chronic Assessment and plan: Continue home meds (3) Right-sided chest wall pain: Status: Acute Assessment and plan: Seems to be related to a bad fall she had just over a month ago and this could have led to trauma that in turn led to chronic hemothorax and a trapped, inflamed lung that will not reexpand (4) Type 2 diabetes mellitus with diabetic neuropathy, unspecified: Status: Chronic Assessment and plan: Fasting glucose 170 today. Continue metformin Subjective Subjective Interval history since last seen: Patient complains of nausea which seem to start when she was down having her two-view chest. There is associated diaphoresis now and a feeling of warmth. She does not have increased shortness of breath but continues to have pain in the right posterior chest wall. Her follow-up chest x-ray this morning shows reaccumulation of fluid in the pneumothorax ex vacuo on the right side. Exam Const General: cooperative and in distress (Nauseated) mild Orientation: oriented x3 Resp Effort & Inspection: tachypneic (Just mild) Auscultation: clear to auscultation bilaterally (Crepitus on right) Cardio Rate: regular rate and not tachycardic Rhythm: regular rhythm Psych Mental Status: mental status grossly normal Mood: anxious mood Affect: normal affect Objective Last Vital Signs Chest x-ray shows fluid level over nursing home up the lung and a continued Apical pneumothorax. The fluid obscures the base. [facility] contacted me promptly Temp 36.8 C 02/16/25 23:40 Pulse 77 02/16/25 23:40 Resp 18 02/16/25 23:40 BP 108/71 02/16/25 23:40 Pulse Ox 95 02/16/25 23:40 Laboratory Results - last 24 hr 02/16/25 02/16/25 02/16/25 12:20 12:20 15:07 Total Protein Cancelled Fluid Source Pleural Pleural Fluid Color RED Fluid Clarity Cloudy Fluid pH 7.0 Fluid WBC 3993 Fld Polynuclear WBCs % 5 Fluid Mononuclear Cell 94 Fluid Other Cells 1 Procedures Chest Tube Chest Tube 1: Chest tube location: Mid-Axillary Chest (Right) Size of tube: 20 (Guatemalan) Chest tube procedure: Yes betadine prep Tube sutured to skin: Yes Sterile dressing applied: Yes Anesthesia: 1% Lidocaine (Morphine 2 mg IV push) Volume anesthetic (ml): 10 Incision made with: #10 blade Post procedure: sutured to skin Sharp of air heard: Yes Tube Drainage: blood Amount of initial drainage (ml): 100 Post procedure CXR?: Yes (Pending) Patient tolerated procedure: Yes Complications: other (None, chest x-ray pending) Time Spent with Patient Time Spent with Patient: >50 minutes Time was spent: preparing to see the patient(eg.review tests), ordering medications,tests, procedures, indepentently interpreting results and counseling the patient
[2025-02-17 10:07] LABS: Abs Immature Grans 0.07 10^3/uL (0.0-0.06); Absolute Basophil Count 0.05 10^3/uL (0.0-0.2); Absolute Eosinophil Count 0.12 10^3/uL (0.0-0.7); Absolute Lymphocyte Count 1.56 10^3/uL (1.2-3.4); Absolute Monocyte Count 0.86 10^3/uL (0.1-0.8); Basophils % 0.4 %; HCT 32.4 % (36.0-46.0); HGB 10.2 g/dL (11.2-15.7); Immature Grans % 0.6 %; Lymphocytes % 13.5 %; MCHC 31.5 % (32.0-36.0); MCV 79 fL (80-95); MPV 9.5 fL (8.0-11.0); Monocytes % 7.5 %; Platelet Count 474 10^3/uL (130-400); RBC 4.08 10^6/uL (3.93-5.22); RDW-SD 40.7 fL; WBC 11.52 10^3/uL (4.4-10.8)
[2025-02-17 10:11] LABS: Absolute Neutrophil Count 8.87 10^3/uL (1.2-6.7)
--- NOTE | 2025-02-17 10:14 | DI.VRAD_ITS ---
PROCEDURE INFORMATION: Exam: XR Chest Exam date and time: 02/17/2025 10:05 AM Age: 65 years old Clinical indication: Device placement; Chest tube; Prior surgery; Surgery date: 6+ months; Surgery type: Chest surgery TECHNIQUE: Imaging protocol: Radiologic exam of the chest. Views: 1 view. COMPARISON: XR CHEST 2V PA LATERAL 02/17/2025 8:02 AM FINDINGS: Tubes, catheters and devices: Right chest tube terminates at the right lung apex. Lungs: Right lung opacity most pronounced at the lung base. Pleural spaces: Trace residual right pneumothorax. Small right pleural effusion. Heart/Mediastinum: No cardiomegaly. Soft tissues: Gas in the right chest wall. IMPRESSION: 1. Status post chest tube placement with decreased right pneumothorax. 2. Right pleural effusion. 3. Right lung opacity. Consider atelectasis, pneumonia. Follow-up as clinically warranted. Dictated and Authenticated by: Renetta Valencia MD. Orderin Radha Martinez MD
[2025-02-17 10:16] LABS: Anion Gap 9.1 mmol/L (3-11); BUN 23 mg/dL (7-18); CO2 27.9 mmol/L (21.0-32.0); CREATININE 0.8 mg/dL (0.55-1.02); Calcium 9.4 mg/dL (8.5-10.1); Chloride 102 mmol/L (98-107); Estimated GFR 82.74 (mL/min/1.73m2); Glucose 209 mg/dL (74-106); Sodium 139 mmol/L (136-145)
--- NOTE | 2025-02-17 11:33 | NUR.NOTE ---
Nursing Note: Per Dr. Garcia pt needs chest tube placement based on chest x-ray. Procedure to be performed at the bedside. Procedure time out called at [phone], right patient, right procedure, and right procedure location all verified prior to start of procedure. Consents signed by Dr. Garcia and pt prior to procedure. During procedure Riya Toney RN, and this nurse were present. Chest tube placement was successful.
[2025-02-17 11:54] VITALS: BP 107/74; PULSE 87; RESP 16; TEMP 35.9; O2SAT 97
--- NOTE | 2025-02-17 12:37 | PHA.REVIEW2 ---
Pharmacy Admission Review Admission Clinical Review Admission Pharmacy Review: Pneumothorax ex vacuo (Acute) Right-sided chest wall pain (Acute) latex Allergy (Mild, Verified 02/16/25 11:31) Itching atorvastatin Adverse Reaction (Intermediate, Verified 02/16/25 11:31) myalgias lisinopril Adverse Reaction (Mild, Verified 02/16/25 11:31) COUGH Resuscitation Status Full Code Height 5 ft 3 in Weight 88.4 kg Comments Comments/Follow Ups: POD #1 Right thoracentesis Pharmacy Admission Review Renal Dosing Renal Dosing: BUN 23 mg/dL (7-18) H 02/17/25 10:00 Creatinine 0.8 mg/dL (0.55-1.02) 02/17/25 10:00 Medications needing adjustments: Reviewed (CrCl 60.72 mL/min) List of meds needing interventions: Current medications are okay Anticoagulation Anticoagulation: Hgb 10.2 g/dL (11.2-15.7) L 02/17/25 10:00 Hct 32.4 % (36.0-46.0) L 02/17/25 10:00 Plt Count 474 10^3/uL (130-400) H 02/17/25 10:00 Creatinine 0.8 mg/dL (0.55-1.02) 02/17/25 10:00 DVT Prophylaxis: Reviewed (SCDs) Opiate Usage Evaluate Pain Scale/Pains Meds: Reviewed (morphine 2mg IVP q1h PRN - 2mg / 24 hours) Scheduled Bowel Reg ordered if on Opiates?: No Relevant Labs Relevant Labs: Sodium 139 mmol/L (136-145) 02/17/25 10:00 Potassium 4.0 mmol/L (3.5-5.1) 02/17/25 10:00 Chloride 102 mmol/L (98-107) 02/17/25 10:00 Electrolytes, C-Reactive P, ESR: Reviewed DM Control DM Control: Glucose 209 mg/dL (74-106) H 02/17/25 10:00 Finger Stick Blood Glucose 215 1141 Finger Stick Blood Glucose 215 1141 Finger Stick Blood Glucose 179 0818 Finger Stick Blood Glucose 179 0818 DM Control: Reviewed Insulin Dosing, Diabetic Medication: Has order for metformin 1000mg XR BID Cardiac Review BP, HR, EF%: Reviewed (BP and HR WNL) List meds needing interventions: Has orders for amlodipine 5mg daily, carvedilol 12.5mg BID and losartan 100mg daily QTc Review QTc: Reviewed (465 from 02/15/25) IV to PO Switch IV Medications: Reviewed (morphine and ondansetron) Home Meds Home Med List reviewed: Reviewed Current Meds Current Medication Order Review: Reviewed Comments Comments/Follow Ups: POD #1 Right thoracentesis
[2025-02-17 15:26] VITALS: BP 87/66; PULSE 98; RESP 16; TEMP 36.5; O2SAT 98
[2025-02-17 15:30] VITALS: BP 100/58
[2025-02-17] MEDS: metFORMIN C.R. 500 MG TABCR 1000 MG PO (17:36)
[2025-02-17 17:41] VITALS: BP 107/58
[2025-02-17] MEDS: Losartan 50 MG TAB 100 MG PO (19:45)
[2025-02-17] MEDS: Carvedilol 12.5 MG TAB PO (19:46)
[2025-02-17] MEDS: Rosuvastatin 20 MG TAB 40 MG PO (19:46)
[2025-02-17] MEDS: Celecoxib 100 MG CAP PO (19:46)
[2025-02-17 19:56] VITALS: BP 103/84; PULSE 95; RESP 18; TEMP 36.3; O2SAT 100
[2025-02-17 22:14] LABS: Albumin, Body FLuid 2.8 g/dL (See Note); Glucose, Fluid 83 mg/dL (See Note)
[2025-02-18] VITALS (15 sets, daily range): BP systolic 80–110; BP diastolic 55–68; PULSE 76–105; RESP 14–18; TEMP 35.4–37.1; O2SAT 91–99
--- NOTE | 2025-02-18 | DI.CT_ITS ---
Exam(s) CT CHEST W EXAM: CT CHEST W CLINICAL HISTORY: right mediastinal mass/ hemothorax. TECHNIQUE: Multi planar reconstructions were performed. CONTRAST MATERIAL: Omnipaque 350; 75 cc COMPARISON: CT CT CHEST WO from 02/15/2025 Also all recent chest x-rays were reviewed FINDINGS: CHEST: LUNGS: There is a right thoracotomy tube which enters the right hemithoracic cavity via the 7th inter costal space and extends cephalad with its distal tip in the right apex adjacent to the subclavicular vasculature but there does not appear to be vascular injury. There is a large right pleural effusio n which contains multiple density measurements consistent with combination of pleural fluid and blood . There is now extension of the pleural effusion to the right paratracheal region, this accounting f or the new lenticular shaped density in the right paratracheal region on today's chest x-ray, this me asuring 7 x 3.5 x 6 cm and exhibiting similar density to the other aspects of the large right pleural effusion. The right pleural effusion also extends into the minor fissure. The right middle and rig ht lower lobes are collapsed. The right upper lobe is partially aerated. There is no shift of midli ne structures. The left lung remains clear and there is no left pleural effusion. There are no secr etions evident in the trachea and mainstem bronchi. Subcutaneous emphysema over the right chest wall and axilla and right side of the neck is noted. MEDIASTINUM: There is no hilar nor mediastinal adenopathy. Partially visualized thyroid unremarkable. CARDIAC: Sternotomy wires noted. Heart size is normal. There is no pericardial effusion.Caliber of the thoracic aorta is within normal limits. No evidence of aortic dissection or penetrating ulcer no r intramural hematoma. VISUALIZED UPPER ABDOMEN:No ascites. Spleen size normal. No adrenal masses partially visualized katina er unremarkable. OSSEOUS: No rib fractures identified. Sternotomy wires. No sternal fractures. No vertebral fractur es.. No significant incidental osseous lytic nor blastic lesions. IMPRESSION: 1. Distal tip of the right thoracotomy tube is in the apex. There is persistent large right pleural effusion which appears to be combination of serous density fluid and blood-sanguinous/probable clots. The pleural effusion also extends into the minor fissure and extends in lentiform fashion to the ri ght paratracheal region, this explaining the new density at this location on today's chest x-ray. Th is may imply developing loculation or possibly just medial cephalad extension of the groin pleural ef fusion. The right lower lobe and right middle lobe are collapsed. 2. Left lung remains clear and there is no left pleural effusion. Also no pericardial effusion. 3. No shift of midline structures. Findings discussed with surgeon on-call Dr.M. Garcia 02/18/2025 at 4:55 p.m. RADIATION DOSE DELIVERED: 204.01mGy.cm Total DLP DATA REPOSITORY: All CT scans at this facility are submitted to the National Radiology Data Registry (NRDR) Dose Index Registry (DIR) with the [employer] (A[employer]). RADIATION OPTIMIZATION: All CT scans at this facility use at least one of these dose optimization te chniques: automated exposure control; mA and/or kV adjustment per patient size (includes targeted exa ms where dose is matched to clinical indication); or iterative reconstruction.
[2025-02-18] MEDS: Ondansetron 4 MG/2 ML VIAL IVP (03:44)
[2025-02-18] MEDS: Lactated Ringers 1,000 ML 100 ML IV ×2 (03:48→18:41)
[2025-02-18] MEDS: Acetaminophen 500 MG TAB 1000 MG PO ×4 (03:56→21:22)
[2025-02-18 05:30] LABS: HCT 24.1 % (36.0-46.0); MCH 24.9 pg (27.0-33.0); MCHC 31.1 % (32.0-36.0); MCV 80 fL (80-95); MPV 10.5 fL (8.0-11.0); Platelet Count 440 10^3/uL (130-400); RBC 3.01 10^6/uL (3.93-5.22); RDW 14.4 % (11.7-14.6); RDW-SD 41.7 fL; WBC 13.84 10^3/uL (4.4-10.8)
[2025-02-18 05:37] LABS: HGB 7.5 g/dL (11.2-15.7)
--- NOTE | 2025-02-18 08:00 | DI.RAD_ITS ---
Exam(s) XR PORTABLE CHEST AP EXAM: XR PORTABLE CHEST AP CLINICAL HISTORY: Pneumothorax. TECHNIQUE: 2D digital imaging was performed. COMPARISON: CT CT CHEST WO from 02/15/2025 CR,XR XR PORTABLE CHEST AP POST LINE from 02/17/2025 CR,XR XR CHEST 2V PA LATERAL from 02/17/2025 FINDINGS: Single AP portable view. Large caliber right chest tube is again noted with distal tip in the right apex. The right lung selene ins re-expanded. Less than 10 percent remaining pneumothorax. However, there is increasing infiltrate in the mid right lung, this in addition to the lower lobe inf iltrate. Infectious versus lung contusion. Also persistent moderate-size right pleural effusion, slightly larger than yesterday. Left lung remains clear. Of concern here is increasing density in the right upper mediastinum adjacent to the chest tube. Fir st consideration for this is mediastinal hematoma versus loculated pleural effusion at this level. IMPRESSION: Some deterioration on the right side as described above including increasing lung infiltrate or lung contusion persistent moderate-large right pleural effusion, and since yesterday there has been develo pment of a right paramediastinal abnormal density measuring approximately 6 x 3 cm with convex senior net engineer al border and which and is adjacent to the superior aspect of the chest tube and either represents me diastinal hematoma or loculated pleural effusion. First read by [facility] Final report called by myself to surgeon on-call Dr. Garcia 02/08/2025 at 2 p.m. DATA REPOSITORY: RADIATION DOSE DELIVERED:
--- NOTE | 2025-02-18 09:35 | W.PM.PROGNOT ---
Date of Service Date of service: 02/18/25 Time of Service: 09:35 Assessment and Plan Assessment and plan (1) Pneumothorax ex vacuo: Status: Acute Assessment and plan: Pneumothorax converted to hydropneumothorax and seem to respond well to chest tube insertion yesterday with full expansion of the lung. She remained on waterseal but at some point either blood some more, or if the bleeding had occurred right before the chest tube was inserted, was inadequately fluids resuscitated with the 1 L of LR she got yesterday and ended up hypotensive early this morning. Repeat H&H shows a drop from at 10 AM yesterday to 7.5/24 early this morning. I suspect the bleeding had occurred right before the chest tube was inserted which is why the H&H was still relatively normal For her. Plan today is to continue with a chest tube on suction, transfuse 1 unit of packed cells, continue to observe (2) Essential hypertension: Status: Chronic Assessment and plan: Hold home meds until blood pressure improves (3) Right-sided chest wall pain: Status: Acute Assessment and plan: Continue pain control with combination of occasional morphine, Tylenol, Celebrex (4) Type 2 diabetes mellitus with diabetic neuropathy, unspecified: Status: Chronic Assessment and plan: Continue metformin Subjective Subjective Interval history since last seen: Since the patient had the chest tube inserted yesterday morning she had improved oxygen saturations, increased tube site pain and back pain thought related to the chest tube. After the initial 1200 cc of output when the tube was inserted, which was thin bloody, in the early afternoon there was an additional 350 output noted to be serous. Since then output has been scant but the patient developed hypotension early this morning and repeat H&H showed a drop substantial compared to yesterday. Patient did consent to a blood transfusion and this is being administered soon. The patient denies dizziness, nausea or occurred with the hypotension but has resolved with Zofran, denies chest pain such as when she had her IA, has poor appetite but denies abdominal pain. Exam Narrative Exam Narrative: Patient is sitting up in bed, mildly distressed, very pale appearing Chest Other: Right lateral and posterior chest wall remain tender to palpation. There are blood clots in the Pleur-evac tubing which we worked into the collection device. There are also clots in the chest tube itself but some serosanguineous drainage is draining around the clots. The patient was able to cough and demonstrate a slight air leak with just a few air bubbles coming across and we did place to Pleur-evac to suction at 20 mmHg. Resp Auscultation: clear to auscultation bilaterally Cardio Rate: regular rate and not tachycardic Rhythm: regular rhythm Objective Last Vital Signs Temp 36.3 C L 02/18/25 09:29 Pulse 92 H 02/18/25 09:29 Resp 16 02/18/25 09:29 BP 97/64 L 02/18/25 09:29 Pulse Ox 99 02/18/25 09:29 Laboratory Results - last 24 hr 02/17/25 02/18/25 02/18/25 10:00 04:19 06:04 WBC 11.52 H 13.84 H RBC 4.08 3.01 L Hgb 10.2 L 7.5 L D Hct 32.4 L 24.1 L MCV 79 L 80 MCH 25.0 L 24.9 L MCHC 31.5 L 31.1 L RDW 14.0 14.4 Plt Count 474 H 440 H MPV 9.5 10.5 Immature Gran % 0.6 Neutrophils % 77.0 Lymphocytes % 13.5 Monocytes % 7.5 Eosinophils % 1.0 Basophils % 0.4 Nucleated RBC % 0.0 Absolute Neutrophils 8.87 H Absolute Lymphocytes 1.56 Absolute Monocytes 0.86 H Absolute Eosinophils 0.12 Absolute Basophils 0.05 Sodium 139 Potassium 4.0 Chloride 102 Carbon Dioxide 27.9 Anion Gap 9.1 BUN 23 H Creatinine 0.8 Est GFR (CKD-EPI 2020) 82.74 Glucose 209 H Calcium 9.4 ABO/Rh O Negative Antibody Screen NEGATIVE Crossmatch See Detail Objective Narrative Objective Narrative: Chest x-ray was taken AP portable upright this morning and V rad read is not back yet. The chest tube has been on waterseal. It appears that the apical pneumothorax has completely resolved, the chest tube has come down from the apex about 1 cm. Otherwise there is haziness at the base and consolidation in the lower lung indicating there is likely residual pleural effusion. Time Spent with Patient Time Spent with Patient: 35-49 minutes Time was spent: preparing to see the patient(eg.review tests), obtaining and/or reviewing separately otained hiistory, ordering medications,tests, procedures and counseling the patient
[2025-02-18] MEDS: Normal Saline Flush 10 ML SYR IVP ×2 (09:42→20:43)
--- NOTE | 2025-02-18 10:10 | DI.VRAD_ITS ---
PROCEDURE INFORMATION: Exam: XR Chest Exam date and time: 02/18/2025 8:08 AM Age: 65 years old Clinical indication: Other: Pneumothorax; Prior surgery; Surgery date: 6+ months; Surgery type: Open heart TECHNIQUE: Imaging protocol: Radiologic exam of the chest. Views: 1 view. COMPARISON: CR XR PORTABLE CHEST AP POST LINE 02/17/2025 10:05 AM FINDINGS: Tubes, catheters and devices: Sternal wires. Right-sided thoracotomy tube extending to the apex unchanged. Lungs: Dense consolidation in the right mid lung and base slightly worse than on previous exam. Left lung remains clear. Pleural spaces: No pneumothorax. Right pleural effusion. Heart/Mediastinum: Cardiomediastinal silhouette is normal. Bones/joints: Unremarkable. IMPRESSION: Right basilar consolidation and effusion somewhat worse than on prior exam. Dictated and Authenticated by: Nhan Story MD. Orderin Radha Martinez MD
[2025-02-18] MEDS: buPROPion-XL 150 MG TABCR PO (10:37)
[2025-02-18] MEDS: metFORMIN C.R. 500 MG TABCR 1000 MG PO ×2 (10:37→17:08)
[2025-02-18] MEDS: Pantoprazole 20 MG TABCR PO (10:37)
[2025-02-18] MEDS: Cholecalciferol (Vitamin D3) 1,000 UNIT TAB 2000 UNITS PO (10:38)
[2025-02-18] MEDS: MORPHine 2 MG/ML SYR IVP (14:35)
--- NOTE | 2025-02-18 14:45 | DI.RAD_ITS ---
Exam(s) XR PORTABLE CHEST AP EXAM: XR PORTABLE CHEST AP CLINICAL HISTORY: chest tube on suction now. TECHNIQUE: 2D digital imaging was performed. COMPARISON: CR,XR XR PORTABLE CHEST AP from 02/18/2025; earlier same date Also chest x-rays prior to that were also reviewed FINDINGS: Single AP portable view. Position of the right sided chest tube is unchanged with distal tip at in the apex region. The 6 x 3 cm abnormal right para tracheal density is unchanged from earlier today and was not previou sly present. The nodular infiltrate and other infiltrates in the right lung and moderate-large right pleural effusion remain unchanged from earlier today. The opposite-left lung remains clear. Sternotomy wires again noted. Heart size normal. The mediastinum is not shifted. Subcutaneous emphysema over the right chest wall and axilla and right side of the neck again noted. IMPRESSION: As above. No improvement compared to earlier same date. DATA REPOSITORY: RADIATION DOSE DELIVERED:
[2025-02-18 15:04] LABS: HGB 8.3 g/dL (11.2-15.7); MCH 25.9 pg (27.0-33.0); MCHC 31.9 % (32.0-36.0); MCV 81 fL (80-95); Platelet Count 380 10^3/uL (130-400); RBC 3.21 10^6/uL (3.93-5.22); RDW 14.4 % (11.7-14.6); RDW-SD 42.5 fL; WBC 13.01 10^3/uL (4.4-10.8)
[2025-02-18 15:14] LABS: Anion Gap 10.8 mmol/L (3-11); BUN 34 mg/dL (7-18); CO2 26.2 mmol/L (21.0-32.0); CREATININE 1.5 mg/dL (0.55-1.02); Calcium 9.2 mg/dL (8.5-10.1); Chloride 101 mmol/L (98-107); Estimated GFR 38.91 (mL/min/1.73m2); Glucose 140 mg/dL (74-106); Potassium 4.3 mmol/L (3.5-5.1); Sodium 138 mmol/L (136-145)
[2025-02-18] MEDS: Lactated Ringers 500 ML IV (15:48)
[2025-02-18] MEDS: Omnipaque 350 MG/ML 100 ML BTL IJ (16:19)
[2025-02-18] MEDS: Normal Saline - Diluent 50 ML VIAL IJ (16:20)
[2025-02-18] MEDS: Rosuvastatin 20 MG TAB 40 MG PO (19:44)
[2025-02-19] VITALS (20 sets, daily range): BP systolic 99–132; BP diastolic 61–76; PULSE 91–111; RESP 16–36; TEMP 36.1–38.9; O2SAT 86–97
[2025-02-19] MEDS: Celecoxib 100 MG CAP PO (02:48)
[2025-02-19] MEDS: Acetaminophen 500 MG TAB 1000 MG PO ×2 (04:17→15:37)
[2025-02-19] MEDS: Lactated Ringers 1,000 ML 100 ML IV (04:20)
[2025-02-19 06:38] LABS: MCH 26.2 pg (27.0-33.0); MCHC 32.6 % (32.0-36.0); MCV 80 fL (80-95); Platelet Count 346 10^3/uL (130-400); RBC 2.37 10^6/uL (3.93-5.22); RDW 14.6 % (11.7-14.6); RDW-SD 42.6 fL; WBC 10.92 10^3/uL (4.4-10.8)
[2025-02-19 06:43] LABS: HGB 6.2 g/dL (11.2-15.7)
[2025-02-19 07:14] LABS: Anion Gap 5.8 mmol/L (3-11); BUN 30 mg/dL (7-18); CO2 27.2 mmol/L (21.0-32.0); CREATININE 0.9 mg/dL (0.55-1.02); Calcium 8.5 mg/dL (8.5-10.1); Chloride 103 mmol/L (98-107); Estimated GFR 71.83 (mL/min/1.73m2); Glucose 162 mg/dL (74-106); Potassium 4.3 mmol/L (3.5-5.1); Sodium 136 mmol/L (136-145)
--- NOTE | 2025-02-19 08:00 | DI.RAD_ITS ---
Exam(s) XR PORTABLE CHEST AP EXAM: XR PORTABLE CHEST AP CLINICAL HISTORY: follow up hemothorax, chest tube on suction TECHNIQUE: 2D digital imaging was performed of the chest. One images were obtained. AP views were obtained. COMPARISON: CR XR PORTABLE CHEST AP from 02/16/2025 CR XR PORTABLE CHEST AP from 02/18/2025 CR,XR XR PORTABLE CHEST AP from 02/18/[address] CHEST W from 02/18/2025 FINDINGS: MEDIASTINUM: Normal. HEART: Normal. Status post CABG. PULMONARY VASCULATURE: Normal. LUNGS: The left lung remains clear. There may be a new small effusion or small pneumothorax in the r ight lung apex. PLEURAL SPACE: The right chest tube is in stable position. The tip of the catheter is seen in the ri ght lung apex. There is a persistent right pleural effusion including a collection in the right para mediastinal region. There may be a new small pneumothorax or small effusion in the right lung apex. Otherwise, the right hemithorax is unchanged. BONE:Within normal limits for the patient's age. There are sternal wires again seen. OTHER FINDINGS:There is again seen a small amount of subcutaneous emphysema along the right chest wal l. IMPRESSION: 1. There may be a new small effusion/collection or pneumothorax in the right lung apex. Otherwise, t he right hemithorax is unchanged with pleural effusion and a right chest tube in place. 2. The left lung is clear. DATA REPOSITORY: RADIATION DOSE DELIVERED:
[2025-02-19] MEDS: Pantoprazole 20 MG TABCR PO (08:34)
[2025-02-19] MEDS: metFORMIN C.R. 500 MG TABCR 1000 MG PO (08:34)
[2025-02-19] MEDS: buPROPion-XL 150 MG TABCR PO (08:34)
[2025-02-19] MEDS: Cholecalciferol (Vitamin D3) 1,000 UNIT TAB 2000 UNITS PO (08:34)
--- NOTE | 2025-02-19 08:44 | PGE_ITS ---
Date of Service Date of service: 02/19/25 Time of Service: 09:30 Assessment and Plan Assessment and plan (1) Hemothorax on right: Status: Acute Assessment and plan: 65-year-old woman with an acute hemothorax following a number of events. Fall about 2 months ago. Shortness of breath and severe dyspnea for a number of weeks. Outpatient plain films showed significant pleural effusion a number of weeks ago and a follow-up outpatient CT scan showed a large pleural effusion. 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 I suspect her lung parenchyma is unable to expand. The space has filled up with plain blood following her procedure. The etiology of this blood is unclear but there is what looks to be a loculated component of hemothorax up in the medial apex near the chest tube which is suspicious for an azygous vein or subclavian vein iatrogenic injury. She was transfused blood yesterday and despite this transfusion, this morning her hemoglobin is 6.2. She is sustaining a significant amount of blood loss. With a tachycardic rate of 105, she is technically borderline unstable. I think we should move her into the ICU for closer monitoring and I am going to consult with the trauma and thoracic services at [facility] [place]. I am ordering her a unit of blood and crossmatching tomorrow. She does have a slightly increased PTT for unclear reasons. She is not on blood thinners. She has had previously?normal PTT results historically. She endorses that she has NOT been on aspirin anytime recently. Her platelet count remains normal. We may need to upsize her chest tube for better control of the hemothorax, but if her lung is not expansile(my suspicion based off of the history), that may not be an ideal strategy. I will wait to discuss with the trauma and thoracic surgeons. She may need a decortication in addition to VATS exploration to control the bleeding in this particular case. Overall plan: Transfer to ICU Every 6 hour hemoglobin Transfuse 1 unit now. Crossmatch 2 more units of blood in anticipation for needing more transfusion. Possible up?size of chest tube - pending consultation with thoracic and trauma services. Subjective Subjective Interval history since last seen: Overnight the patient has no new pain or symptoms. Yesterday, the chest tube was irrigated because of concerns about blood clots preventing drainage. Chest tube has put out a significant amount of dark venous?appearing blood. Exam Narrative Exam Narrative: Gen: Non-toxic, comfortable and interactive. She is pale in appearance. Neuro: Alert and oriented x3 Psych: Good mood and affect. Good insight and understanding into condition. Chest: Non-labored breathing, no wheezing, no visible shortness of breath. The chest tube is inspected at the bedside. It appears intact. I do not appreciate any obvious crepitus. There is a significant amount of dark venous blood in the chest tube. 400 cc out this morning alone. The Pleur-evac is to -25 suction. I changed it to -20. Heart: Slight tachycardic rate (105) Objective Last Vital Signs Temp 97.0 F L 02/19/25 07:42 Pulse 95 H 02/19/25 07:42 Resp 18 02/19/25 07:42 BP 105/63 02/19/25 07:42 Pulse Ox 93 02/19/25 07:42 Laboratory Results - last 24 hr 02/18/25 02/18/25 02/19/25 06:04 14:58 05:30 WBC 13.01 H 10.92 H RBC 3.21 L 2.37 L Hgb 8.3 L 6.2 L* D Hct 26.0 L 19.0 L* MCV 81 80 MCH 25.9 L 26.2 L MCHC 31.9 L 32.6 RDW 14.4 14.6 Plt Count 380 346 MPV 10.0 10.0 Sodium 138 136 Potassium 4.3 4.3 Chloride 101 103 Carbon Dioxide 26.2 27.2 Anion Gap 10.8 5.8 BUN 34 H 30 H Creatinine 1.5 H 0.9 Est GFR (CKD-EPI 2020) 38.91 71.83 Glucose 140 H 162 H Calcium 9.2 8.5 ABO/Rh O Negative Antibody Screen NEGATIVE Crossmatch See Detail Time Spent with Patient Time Spent with Patient: 25-34 minutes Time was spent: preparing to see the patient(eg.review tests), obtaining and/or reviewing separately otained hiistory, ordering medications,tests, procedures, referring, communicating with other health customer care consultant, indepentently interpreting results, counseling the patient, care coordination and other
--- NOTE | 2025-02-19 11:39 | W.NUTRFU ---
Date of service: 02/19/25 Time of Service: 10:15 Nutrition Note NOTE: Pt is 65yo female being treated for pleural effusion with hemothorax. Hx of DMII and just takes metformin at home. 162 fasting today and 126 at breakfast for glucose. last June her A1C was 6.9%. She is tolerating a consistent cho/heart healthy diet. She reports fair appetite. Feeling weak - H/H very low today. States no concerns - may have had ~5 pound weight loss she reports throughout her recent medical concerns. Let her know ONS available if/when she would like to take some extra kcals/protein. Declined diabetes education at this time. Will continue to follow labs, weight, po intake Time Spent in Nutritional Counseling and Treatment: 5 min
[2025-02-19] MEDS: Normal Saline Flush 10 ML SYR IVP ×2 (13:45→15:38)
[2025-02-19] MEDS: MORPHine 2 MG/ML SYR IVP (14:01)
[2025-02-19 14:10] LABS: HCT 22.8 % (36.0-46.0); HGB 7.2 g/dL (11.2-15.7)
--- NOTE | 2025-02-19 14:57 | W.PM.DSUDISC ---
Date of service: 02/19/25 Discharge Plan Disposition Patient Disposition: Transfer-Acute Inpatient Care Condition: Critical Discharge Details Reason For Visit: Pneumothorax Admit Date/Time: 02/16/25 15:55 Admit Provider: Michelle Garcia Attending Provider: Michelle Garcia Primary Care Provider: Marj Martinez Hospital Course Hospital Course: The patient is a 65-year-old woman who fell about 2 months ago. She developed shortness of breath, chest discomfort for about 1 month. She was seen by her PCP and an outpatient x-ray a couple of weeks prior to hospitalization showed a pleural effusion. Her symptoms worsened and she underwent a CT scan the day before hospitalization which showed a large pleural effusion. She underwent ultrasound?guided thoracentesis which was large?volume and almost 2 L of dark fluid was evacuated. She then developed a large pneumothorax ex vacuo consistent with an underlying etiology of likely entrapped/nonexpansile lung and/or fibrothorax. A chest tube was placed. Unfortunately, the patient then developed intrathoracic bleeding. She developed a relatively large?hemothorax and only some of the blood was evacuated out of the chest tube. There were concerns that the chest tube itself was possibly clotted and on hospital day 3, irrigation in the chest was attempted through the chest tube without much success. She did require a unit of blood to be transfused at this time because of hemodynamic instability. On hospital day 4, she continued to have significant amounts of dark blood out of her chest tube and her hemoglobin was found to be 6. She was transfused another unit of blood and moved into the ICU and trauma surgery service was consulted at [facility]. A CT scan as well as her plain films of the chest showed concern for a loculated collection, possible intrathoracic hematoma. [facility] trauma service accepted the patient in transfer. Repeat hemoglobin continued to suggest ongoing bleeding as well as the chest tube output continued to have ongoing, dark bloody output. Another unit of blood was transfused. She was set up for transfer out to [facility] in hemodynamically stable, but critical condition. Home Meds and New Rx's Prescriptions: No Action cholecalciferol (vitamin D3) 25 mcg (1,000 unit) capsule 2,000 unit PO DAILY magnesium citrate 100 mg tablet 100 mg PO DAILY amlodipine 5 mg tablet 5 mg PO DAILY Qty: 90 3RF bupropion HCl 150 mg tablet extended release 24 hr See Rx Instructions .ROUTE .COMPLEX Qty: 90 3RF Dose Instruction: TAKE 1 TABLET BY MOUTH EVERY MORNING Rx Instructions: TAKE 1 TABLET BY MOUTH EVERY MORNING carvedilol 12.5 mg tablet 12.5 mg PO BID Qty: 180 3RF losartan 100 mg tablet 100 mg PO .pm Qty: 90 3RF Rx Instructions: Blood pressure rosuvastatin 40 mg tablet See Rx Instructions .ROUTE .COMPLEX Qty: 90 3RF Dose Instruction: TAKE 1 TABLET BY MOUTH AT BEDTIME Rx Instructions: TAKE 1 TABLET BY MOUTH AT BEDTIME pantoprazole 20 mg tablet,delayed release (DR/EC) 20 mg PO DAILY AM Qty: 90 3RF Rx Instructions: Best taken when on am empty stomach; FAILED H2 DOUGLAS celecoxib [Celebrex] 100 mg capsule 100 mg PO BID PRN (Reason: chest wall pain) Qty: 20 0RF (DME) lancets [FreeStyle Lancets] 28 gauge misc 1 ea Miscellaneous DAILY Qty: 100 3RF Rx Instructions: E11.9 daily monitoring to maintain A1C less than 7 aspirin 81 mg tablet,delayed release (DR/EC) 81 mg PO DAILY (DME) FreeStyle Lite Strips Strip See Rx Instructions .ROUTE .COMPLEX Qty: 100 4RF Dose Instruction: USE TO TEST BLOOD GLUCOSE ONCE DAILY Rx Instructions: USE TO TEST BLOOD GLUCOSE ONCE DAILY metformin 500 mg tablet extended release 24 hr See Rx Instructions .ROUTE .COMPLEX Qty: 360 3RF Dose Instruction: TAKE 2 TABLETS TWICE DAILY WITH FOOD (DISCONTINUE METFORMIN IMMEDIATE RELEASE) Rx Instructions: TAKE 2 TABLETS TWICE DAILY WITH FOOD (DISCONTINUE METFORMIN IMMEDIATE RELEASE) Discharge Instructions Stand Alone Forms: Lorene Rutherford (DSU) Activity:: ICU Equipment/Supplies:: No Equipment Needed Diet:: As Tolerated DS: Diagnosis Discharge Diagnosis (1) Hemothorax on right: Status: Acute Asessment and Plan: Overall plan: TRANSFER to [facility]
--- NOTE | 2025-02-19 16:09 | PDOC.CMPRO ---
Date of service: 02/19/25 Time of Service: 15:00 Care Management Progress Note Progress Note Text Progress Note Text: Horace was sitting up on the edge of the bed when CM met with her today. 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 Horace is still having a large amount out from her chest tube and is being transferred to [facility] this afternoon. Horace is aware of this plan. She is eager to get treatment that will relieve her pain and shortness of breath. Discharge Potential Discharge Needs: Other ([facility] transfer) Anticipated Barriers to Discharge: None Identified (bed is secured at [facility]) Patient/Family Education Needs: Review discharge instructions, discuss Ask Me Three Transportation: EMS Plan: Anticipate that Horace will transfer to [facility] once a bed is available and transport is coordinated. CM will continue to follow. Social Determinants of Health Screening Social Determinants of Health last assessed: 02/19/25 Will the Patient Participate in the Screening?: Yes Do you worry about having a steady place to live?: no Problems where you live: no known problems In the past 12 months, have you had to go without electric, gas, oil or water in your home?: yes Have you or anyone in your house had to go without enough food to eat?: no Has lack of transportation kept you from medical appointments or from doing things needed for daily living?: no Has anyone in your life made you feel unsafe or unsupported?: no How hard is it for you to pay for the very basics like food, housing, medical care, and heating? Would you say it is:: Somewhat hard Do you want help finding or keeping work or a job?: I do not need or want help If for any reason you need help with day-to-day activities such as bathing, preparing meals, shopping, managing finances, etc., do you get the help you need?: I don?t need any help How often do you feel lonely or isolated from those around you?: Never Do you speak a language other than [place] at home?: Yes Does the patient want assistance with any of the above?: Yes Social Determinants of Health Comments(SDVA Details): Options for help with electric and gas Health Related Social Needs Health related social needs: material hardship(utilities) (Z59.12), problems related to housing/economic circumstances (Z59.89) and education (Z55.6)
--- NOTE | 2025-02-19 17:19 | NUR.NOTE ---
Second unit of blood ordered by Dr Parry at Once blood was spiked and hanged, pt's temperature was 38.9 tympanic. Previous temps have been taken temporally. Used tympanic thermometer because given the inconsistent readings from temporal. Dr Bernal was notified and advised to not give the 2nd unit and stop the fluids. Labs was notified of this situation and stated per protocol two degree temperature rise could indicate transfusion reaction. Transfusion reaction not suspected so blood was discarded. , :
[2025-02-20 12:39] LABS: Lactate Dehydrogenase (LD), BF 288 U/L
[2025-02-20 12:41] LABS: Protein,Total, BF 4.9 g/dL
== END 2025-02-19 16:45 | disposition short-term general hospital (02) | DRG 187 ==
LOC: MS 20:57 → ICU 02-19 12:19
PROVIDERS: Student in an Organized Health Care Education/Training Program; Surgery; Admitting Provider Surgery; PCP Nurse Practitioner Adult Health; Visit Provider Surgery
PROC: (CPT 32554; principal; 2025-02-16 12:00)
DX: J95.811 Postprocedural pneumothorax; S27.892A Contusion of other specified intrathoracic organs, initial encounter; J90 Pleural effusion, not elsewhere classified; J94.2 Hemothorax; I10 Essential (primary) hypertension; R07.89 Other chest pain; I25.10 Atherosclerotic heart disease of native coronary artery without angina pectoris; Z95.1 Presence of aortocoronary bypass graft; W01.0XXA Fall on same level from slipping, tripping and stumbling without subsequent striking against object, initial encounter; R05.3 Chronic cough; E78.1 Pure hyperglyceridemia; N39.41 Urge incontinence; E11.40 Type 2 diabetes mellitus with diabetic neuropathy, unspecified; F43.21 Adjustment disorder with depressed mood; E03.9 Hypothyroidism, unspecified; I25.2 Old myocardial infarction; I95.9 Hypotension, unspecified; R84.6 Abnormal cytological findings in specimens from respiratory organs and thorax
CPT/HCPCS: 32554; 32556; 00123; 36415; 36430; 71045; 80048; 82042; 85027; 86850; 86900; 86901; 86920; 87116; 87206; 71046; 71260; 81373; 83615; 83986; 84155; 84157; 85014; 85018; 85025; 87070; 87075; 87205; 88104; 88305; 88313; 88361; 89051; J2270; J2405; J3490; P9016

== ENCOUNTER 2025-05-01 05:33 | Outpatient (CLI) | payer OTHER, SELFPAY ==
--- NOTE | 2025-05-01 07:30 | DI.RAD_ITS ---
Exam(s) XR CHEST 2V PA LATERAL EXAM: XR CHEST 2V PA LATERAL CLINICAL HISTORY: ? acute process, s/p traumatic hemothorax 01/2025,COUGH,H/O PLEURAL EFFUSION TECHNIQUE: 2D digital imaging was performed of the chest. Two images were obtained. PA and lateral views were obtained. COMPARISON: CT CT CHEST W from 02/18/2025 CR XR PORTABLE CHEST AP from 02/18/2025 CR XR PORTABLE CHEST AP from 02/19/2025 FINDINGS: There has been interval removal of the right chest tube. MEDIASTINUM: Normal. HEART: Normal. PULMONARY VASCULATURE: Normal. LUNGS: No infiltrate is seen in the left lung. PLEURAL SPACE: There is been decrease in size of the loculated pleural effusion along the posterior s uperior right hemithorax. This is best appreciated on the lateral view. This is likely accounts for the ovoid opacity projected in the right lung apex on the PA view. There is a rounded opacity seen in the right mid lung. There is also infiltrate seen in the right lung base laterally. There is cecilia nting of the right costophrenic angle suggesting a residual right pleural effusion. The left lung is clear. No effusion or pneumothorax is identified. BONE:Within normal limits for the patient's age. Sternal wires are in place. OTHER FINDINGS:Normal. IMPRESSION: 1. There is a persistent loculated fluid collection in the posterior superior right hemithorax. This has decreased in size since the most recent chest x-ray from 02/19/2025. 2. Persistent blunting of the right costophrenic angle and a right basilar opacity. This may represe nt a residual right pleural effusion. The right basilar opacity may represent atelectasis or pneumon ia. 3. Ovoid opacity in the right mid lung. Differential considerations include loculated fluid collecti on, pulmonary nodule, rounded atelectasis or pneumonia. 4. A CT scan of the chest should be considered in this patient for further characterization. If a CT scan is not obtained, follow-up chest x-rays to document continued improvement of the right hemithor ax would be recommended. DATA REPOSITORY: RADIATION DOSE DELIVERED:
== END 2025-05-01 05:53 ==
LOC: DI 05:33
PROVIDERS: PCP Nurse Practitioner Adult Health; Visit Provider Nurse Practitioner Adult Health
DX: R05.9 Cough, unspecified (principal); Z87.09 Personal history of other diseases of the respiratory system; R91.8 Other nonspecific abnormal finding of lung field
CPT/HCPCS: 71046

== ENCOUNTER 2025-05-09 03:11 | Outpatient (CLI) | payer OTHER, SELFPAY ==
[2025-05-09 07:49] LABS: HCT 34.5 % (36.0-46.0); HGB 10.7 g/dL (11.2-15.7); MCH 24.7 pg (27.0-33.0); MCV 80 fL (80-95); MPV 10.1 fL (8.0-11.0); Platelet Count 334 10^3/uL (130-400); RBC 4.34 10^6/uL (3.93-5.22); RDW 14.7 % (11.7-14.6); RDW-SD 42.5 fL; WBC 7.65 10^3/uL (4.4-10.8)
[2025-05-09 08:52] LABS: Hemoglobin A1C 7.2 % (<5.7)
[2025-05-09 08:58] LABS: COMMENT (LAB VIEW ONLY) 118.63 mg/dL
[2025-05-09 09:09] LABS: Microalb ug/mg Crea 134.3 ug/mg Cr
[2025-05-09 09:12] LABS: ALT 16 U/L (14-59); AST 14 U/L (15-37); Albumin 3.6 g/dL (3.4-5.0); Alkaline Phosphatase 134 U/L (46-116); BUN 15 mg/dL (7-18); Bilirubin, Total 0.3 mg/dL (0.2-1.0); CREATININE 0.9 mg/dL (0.55-1.02); Calcium 9.3 mg/dL (8.5-10.1); Calculated LDL 56 mg/dL (<100); Chloride 101 mmol/L (98-107); Cholesterol 136 mg/dL (<200); Estimated GFR 71.83 (mL/min/1.73m2); Ferritin 27 ng/mL (8-252); Glucose 141 mg/dL (74-106); HDL Cholesterol 48 mg/dL (>or=50); Sodium 138 mmol/L (136-145); Total Protein 7.9 g/dL (6.4-8.2); Triglyceride 163 mg/dL (<150)
== END 2025-05-09 03:12 | disposition home or self-care (01) ==
LOC: LBO 03:11
PROVIDERS: PCP Nurse Practitioner Adult Health; Referring Provider Nurse Practitioner Adult Health; Visit Provider Nurse Practitioner Adult Health
DX: Z98.890 Other specified postprocedural states; J90 Pleural effusion, not elsewhere classified; J94.2 Hemothorax; K21.9 Gastro-esophageal reflux disease without esophagitis; E11.40 Type 2 diabetes mellitus with diabetic neuropathy, unspecified
CPT/HCPCS: 36415; 80053; 80061; 85027; 82043; 82570; 82728; 83036

== ENCOUNTER 2025-06-01 00:17 | Outpatient (CLI) | payer OTHER, SELFPAY ==
--- NOTE | 2025-06-01 16:01 | DI.MAMMO_ITS ---
Exam(s) MAMMO SCREENING EXAM: MAMMO SCREENING CLINICAL HISTORY: screening, Z12.39. TECHNIQUE: Bilateral full field digital CC and MLO mammographic images were obtained with 3D tomosynthesis and utilizing computer aided detection (CAD). COMPARISON: Prior mammograms were reviewed. FINDINGS: There has been no significant change in the appearance and distribution of the fibroglandular tissue. Benign-appearing nodular densities are again noted in both breasts, including 1 which is adjacent to a biopsy marker clip anteriorly in the right breast. There are no new spiculated masses nor new malignant appearing microcalcification groups in either breast.. There is no significant architectural distortion nor skin thickening-retraction. IMPRESSION: Stable benign findings. No radiographic evidence of malignancy. BI-RADS Category 2 - Benign Findings Breast Density - Category B - There are scattered areas of fibroglandular density. Breast density Category C or D implies that the patient has dense breast tissue. Dense breast tissue can make it harder to find cancer on a mammogram. Dense breast tissue is also associated with an increased risk of breast cancer. This information about the result of the mammogram report was provided to the patient to raise their awareness. Use this report when you speak with the patient about their risks for breast cancer, which includes their family history. At that time, you may recommend additional screening tests (Ultrasound or MRI) as these tests may add significant information. A negative radiographic report should not delay biopsy if a dominant or clinically suspicious mass is present. Up to ten percent of cancers are not identified on mammography. A negative report may reinforce clinical impression. Adenosis and dense breasts may obscure an underlying neoplasm. False positive reports average 6 to 10%. Patient will receive a letter notifying them of these results.
== END 2025-06-01 00:37 ==
LOC: DI 00:18
PROVIDERS: PCP Nurse Practitioner Adult Health; Visit Provider Nurse Practitioner Adult Health
DX: Z12.31 Encounter for screening mammogram for malignant neoplasm of breast (principal); R92.323 Mammographic fibroglandular density, bilateral breasts
CPT/HCPCS: 77063; 77067

== ENCOUNTER 2025-06-15 00:31 | Outpatient (RCR) | payer OTHER, SELFPAY ==
[2025-06-01] MEDS: IRON SUCROSE COMPLEX 200 MG in Normal Saline 100 ML 440 MG IVPB (14:38)
[2025-06-01] MEDS: Normal Saline Flush 10 ML SYR IVP (14:41)
[2025-06-08] MEDS: IRON SUCROSE COMPLEX 200 MG in Normal Saline 100 ML 440 MG IVPB (14:08)
[2025-06-08] MEDS: Normal Saline Flush 10 ML SYR IVP (14:09)
[2025-06-15] MEDS: IRON SUCROSE COMPLEX 200 MG in Normal Saline 100 ML 440 MG IVPB (14:23)
== END 2025-06-21 23:59 | disposition home or self-care (01) ==
LOC: INF 00:31
PROVIDERS: PCP Nurse Practitioner Adult Health; Visit Provider Nurse Practitioner Adult Health
DX: D50.0 Iron deficiency anemia secondary to blood loss (chronic) (principal)
CPT/HCPCS: 96365; J1756

== ENCOUNTER 2025-06-26 10:01 | Outpatient (CLI) | payer OTHER, SELFPAY ==
--- NOTE | 2025-06-27 07:41 | W.PFT ---
Date of service: 06/26/25 Time of Service: 09:35 Pulmonary Function Test Result Indications: Hx hemothorax Impression 1. Good patient effort was noted. ATS standards for reproducibility were met. 2. Normal spirometry.
== END 2025-06-26 10:02 | disposition home or self-care (01) ==
LOC: RT 10:01
PROVIDERS: PCP Nurse Practitioner Adult Health; Visit Provider Internal Medicine Pulmonary Disease

== ENCOUNTER 2025-07-20 14:00 | Outpatient (RCR) | payer OTHER, SELFPAY | END 2025-07-22 23:59 | disposition home or self-care (01) | LOC: PRC 14:00 | PROVIDERS: PCP Nurse Practitioner Adult Health; Visit Provider Internal Medicine Pulmonary Disease | DX: I25.810 Atherosclerosis of coronary artery bypass graft(s) without angina pectoris (principal); Z51.89 Encounter for other specified aftercare | CPT/HCPCS: 94626 ==

== ENCOUNTER 2025-08-17 14:00 | Outpatient (RCR) | payer OTHER, SELFPAY | END 2025-08-21 23:59 | disposition home or self-care (01) | LOC: PRC 14:00 | PROVIDERS: PCP Nurse Practitioner Adult Health; Visit Provider Internal Medicine Cardiovascular Disease | DX: I25.810 Atherosclerosis of coronary artery bypass graft(s) without angina pectoris (principal); Z51.89 Encounter for other specified aftercare | CPT/HCPCS: 94626 ==

== ENCOUNTER 2025-08-31 00:01 | Outpatient (CLI) | payer OTHER, SELFPAY ==
--- NOTE | 2025-08-31 | DI.RAD_ITS ---
Exam(s) XR CHEST 2V PA LATERAL EXAM: XR CHEST 2V PA LATERAL CLINICAL HISTORY: J02.9 Sore throat, acute pharyngitis. TECHNIQUE: 2D digital imaging was performed. COMPARISON: CT CT CHEST W from 02/18/2025 CR XR CHEST 2V PA LATERAL from 05/01/[address] CHEST W from 05/31/2025 FINDINGS: 2 views: Sternotomy wires are again noted. Heart size is normal. The mediastinum is not widened. There is some patchy [place] infiltrates in the right upper lobe. May be pleural based in corresponding to findings evident prior chest CT scan of 05/31/2025. No confluent infiltrates in the opposite-left lung. No obvious pleural effusions. No recurrence of the previously present large right pleural effusion which was evident on CT scan of January 2025. No pneumothorax evident. IMPRESSION: Mild patchy infiltrates in the right lung. Clinically indicated CT scan can be performed to compared to the most recent CT scan of 05/31/2025. There presently no obvious pleural effusions. Sternotomy wires. Normal heart size. No pulmonary edema. DATA REPOSITORY: RADIATION DOSE DELIVERED:
--- NOTE | 2025-08-31 17:30 | DI.VRAD_ITS ---
PROCEDURE INFORMATION: Exam: XR Chest Exam date and time: 08/31/2025 4:53 PM Age: 65 years old Clinical indication: Other: Sore throat, acute pharyngitis TECHNIQUE: Imaging protocol: Radiologic exam of the chest. Views: 2 views. COMPARISON: 1. CT CHEST W 05/31/2025 2:02 PM (images only, no report) 2. CR XR CHEST 2V PA LATERAL 05/01/2025 2:42 PM (images only, no report) FINDINGS: Lungs: Patchy and somewhat nodular densities overlying the right mid/upper lung. Pleural spaces: See below. Heart/Mediastinum: Unremarkable. No cardiomegaly. Bones/joints: Prior sternotomy. IMPRESSION: 1. No acute findings. 2. Patchy and somewhat nodular densities overlying the right mid/upper lung. Findings appear similar to decreased compared to prior chest radiograph and may represent pleural-based nodules when compared to prior chest CT. Dictated and Authenticated by: Az Aceves MD. Orderin José Manuel Aleman MD
== END 2025-08-31 00:21 ==
LOC: DI 10-17 10:23
PROVIDERS: PCP Nurse Practitioner Adult Health; Visit Provider Physician Assistant Medical
DX: J02.9 Acute pharyngitis, unspecified (principal); R91.8 Other nonspecific abnormal finding of lung field
CPT/HCPCS: 71046

== ENCOUNTER 2025-08-31 16:33 | Outpatient (REF) | payer OTHER, SELFPAY | END 2025-08-31 16:34 | disposition home or self-care (01) | LOC: LBN 16:33 | PROVIDERS: PCP Nurse Practitioner Adult Health; Visit Provider Physician Assistant Medical | DX: J02.9 Acute pharyngitis, unspecified (principal) | CPT/HCPCS: 87070 ==

== ENCOUNTER 2025-09-14 12:30 | Emergency (ER) | payer OTHER, SELFPAY ==
[2025-09-14 12:35] VITALS: BP 178/93; PULSE 77; RESP 18; TEMP 36.5; O2SAT 93
--- NOTE | 2025-09-14 13:07 | W.ED.GENAD ---
Discharge Plan Disposition Patient Disposition: Home Discharge Details Clinical Impression: Upper back pain on right side Primary Care Provider: Marj Martinez ED Provider: Morgan Weeks Home Meds and New Rx's Prescriptions: Continued ibuprofen 600 mg tablet 600 mg PO Q6H PRN metformin 500 mg tablet extended release 24 hr See Rx Instructions .ROUTE .COMPLEX Qty: 360 3RF Dose Instruction: TAKE 2 TABLETS TWICE DAILY WITH FOOD (DISCONTINUE METFORMIN IMMEDIATE RELEASE) Rx Instructions: TAKE 2 TABLETS TWICE DAILY WITH FOOD (DISCONTINUE METFORMIN IMMEDIATE RELEASE) ferrous gluconate 324 mg (37.5 mg iron) tablet 324 mg PO DAILY Qty: 60 1RF Rx Instructions: Take separate from other meds by ~2 hours for anemia acetaminophen 500 mg capsule 500 mg PO Q6H PRN rosuvastatin 40 mg tablet See Rx Instructions .ROUTE .COMPLEX Qty: 90 3RF Dose Instruction: TAKE 1 TABLET BY MOUTH AT BEDTIME Rx Instructions: TAKE 1 TABLET BY MOUTH AT BEDTIME cholecalciferol (vitamin D3) 125 mcg (5,000 unit) capsule 125 mcg PO DAILY magnesium/citrate/glyconate,maleate PO DAILY Mounjaro 2.5 mg/0.5 mL pen injector 2.5 mg subcut QWEEK Qty: 2 3RF Rx Instructions: Continue 2.5mg weekly. hydrocodone-acetaminophen 10-325 mg tablet 1 tab PO Q6H MDD 40 mg PRN (Reason: pain) Qty: 10 0RF (DME) lancets [FreeStyle Lancets] 28 gauge misc 1 ea Miscellaneous DAILY Qty: 100 3RF Rx Instructions: E11.9 daily monitoring to maintain A1C less than 7 aspirin 81 mg tablet,delayed release (DR/EC) 81 mg PO DAILY (DME) FreeStyle Lite Strips Strip See Rx Instructions .ROUTE .COMPLEX Qty: 100 4RF Dose Instruction: USE TO TEST BLOOD GLUCOSE ONCE DAILY Rx Instructions: USE TO TEST BLOOD GLUCOSE ONCE DAILY omeprazole 20 mg capsule,delayed release(DR/EC) See Rx Instructions .ROUTE .COMPLEX Qty: 90 3RF Dose Instruction: TAKE ONE CAPSULE BY MOUTH EVERY DAY FOR CHRONIC COUGH Rx Instructions: TAKE ONE CAPSULE BY MOUTH EVERY DAY FOR CHRONIC COUGH losartan 100 mg tablet See Rx Instructions .ROUTE .COMPLEX Qty: 90 3RF Dose Instruction: TAKE 1 TABLET IN THE EVENING FOR BLOOD PRESSURE Rx Instructions: TAKE 1 TABLET IN THE EVENING FOR BLOOD PRESSURE carvedilol 12.5 mg tablet See Rx Instructions .ROUTE .COMPLEX Qty: 180 3RF Dose Instruction: TAKE 1 TABLET TWICE A DAY FOR CORONARY ARTERY DISEASE/HYPERTENSION Rx Instructions: TAKE 1 TABLET TWICE A DAY FOR CORONARY ARTERY DISEASE/HYPERTENSION amlodipine 5 mg tablet See Rx Instructions .ROUTE .COMPLEX Qty: 90 3RF Dose Instruction: TAKE 1 TABLET DAILY Rx Instructions: TAKE 1 TABLET DAILY bupropion HCl 150 mg tablet extended release 24 hr See Rx Instructions .ROUTE .COMPLEX Qty: 90 3RF Dose Instruction: TAKE 1 TABLET EVERY MORNING Rx Instructions: TAKE 1 TABLET EVERY MORNING fluticasone propionate [Flonase Allergy Relief] 50 mcg/actuation spray,suspension 2 spray intranasal DAILY Qty: 16 6RF Rx Instructions: administer into each nostril for post-nasal drip and congestion Discharge Instructions Additional Instructions: You are seen emergency department for upper back discomfort. Your x-ray showed no acute cardiopulmonary processes. Please hold your previously scheduled outpatient follow-up with thoracic surgery. As we discussed we do not have a clear cause of your symptoms. If you develop flank pain any pain in your stomach or if you become nauseous and start vomiting please return to the emergency department. For your pain please take medications as follows: 1. Take acetaminophen (Tylenol), 1,000 mg (two 500 mg tabs) every 6 hours HPI General Date/Time Provider Initiated Documentation: 09/14/25 13:07. HPI Narrative: MDM This is an overall well-appearing normothermic and nontachycardic 62-year-old female with coughing and right-sided upper back discomfort status post VATS surgery earlier this year with presentation concerning for the possibility of pneumothorax versus release of adhesions. Considered PE however the patient not having chest pain and is not tachycardic not hypoxic so I do not send a D-dimer. Patient will undergo chest x-ray. No pain out of proportion to suggest necrotizing soft tissue infection. No rash to back to suggest zoster. No anterior chest discomfort to suggest ACS and no nausea no vomitings I did not order an ECG nor feel the patient required a troponin. No recurrent trauma to chest so if chest x-ray is reassuring will defer cross-sectional imaging. Patient not been vomiting to suggest increased risk for esophageal rupture. In the absence of vomiting I do not feel she requires assessment of her electrolytes. Patient has no URI symptoms so we will defer COVID swab at this point in time. No midline thoracic spinal tenderness to suggest thoracic spinal fracture. No history of malignancy to suggest increased risk for pathological fracture. No loss of bowel or bladder control to suggest cauda equina syndrome. No history of anticoagulation to suggest increased risk for spinal epidural hematoma and no recent spinal instrumentation. No fevers no IV drug use to suggest increased risk for spinal epidural abscess. Patient not having flank pain to suggest ureteral lithiasis so did not feel that she required CT scan of her abdomen. No right upper quadrant tenderness to suggest acute cholecystitis. 3:15 PM Patient's chest x-ray was read as showing stable appearance of her right upper posterior pleural thickening. No new acute abnormalities. No pleural effusions. I reassessed patient. She continues to be breathing well. She was in no respiratory distress. We discussed that I did not have a clear etiology for her symptoms. We discussed that if she developed worsening shortness of breath any pain down her flank or pain in her abdomen that she should return to the emergency department. She has outpatient thoracic surgery follow-up next week. We discussed we be happy to reassess her in the emergency department if her symptoms worsened or fail to improved. Otherwise I advised outpatient specialty follow-up as previously scheduled next week. We discussed that she should return if she developed any shortness of breath any chest pain nausea or vomiting or abdominal pain. She understood her return indications and was discharged with an empiric trial of expectant outpatient management. I treated her with a Lidoderm patch. Her repeat oxygen saturation was 99% on room air. HPI This is a patient with a history of a fall on ice presenting with back pain. On 01/18/2025, the patient experienced a fall on ice, resulting in a cracked rib. Medical attention was sought on 02/03/2025 at [facility], where she was subsequently referred to Dr. Barfield at [facility]. A spirometer was provided, but her condition deteriorated over the next 12 to 15 days, with increased difficulty in breathing, walking, and talking. A CT scan revealed a collapsed right lung and fluid accumulation in the chest cavity. She was seen by Dr. Garcia who placed another tube and drained 2500 mL of fluid. She underwent two transfusions and was referred to [facility] for a VATS procedure, which was unsuccessful due to a nicked blood vessel during tube insertion. This necessitated a thoracotomy on 02/20/2025, followed by a hospital stay until 02/24/2025. Despite a two-month recovery period, she continues to experience issues including altered voice and breathing difficulties. Dr. Brice recommended strenuous exercise, but she has been unable to comply due to her non-exercising nature. Her condition has progressively worsened, with constant coughing due to postnasal drip. On 09/10/2025, after a stressful day at work, the patient experienced a popping sensation in her back around the incision site during a coughing episode, which she describes as feeling like a stab. She reports no new falls or changes in her condition. Her legs and arms are unaffected. The pain is localized to the right side of her back near the incision. She reports no anterior chest pain, nausea, or vomiting. She experienced intermittent hot flashes at work this morning, which she attributes to either a fever or the building's temperature. She has been managing the pain with Tylenol and Motrin, and her boyfriend applied a lidocaine patch and a 4 x 4 dressing. She reports shortness of breath, which she believes is anxiety-induced due to the pain. Her breathing is slightly labored even at rest. PAST SURGICAL HISTORY: Thoracotomy on 02/20/2025 Exam General: Well-appearing in no acute distress speaking in complete sentences. Head: Normocephalic, atraumatic. Eye: Extraocular eye movements intact. No conjunctival injection. No scleral icterus. Ear, nose, mouth, throat: Grossly normal inspection. Normal voice, handling secretions normally. Neck: Trachea midline. No midline cervical spinal tenderness. Cardiovascular: Well-perfused distal extremities. Respiratory: Nonlabored respiration. Clear equal breath sounds bilaterally. Back: Right thoracic back mid axillary line extending superior anteriorly there is a well-healing scar. No rash to back. No midline cervic thoracic or lumbar spinal tenderness. No step-offs no deformities. Al Gastrointestinal: Nondistended abdomen. Musculoskeletal: No edema. Moving all 4 extremities spontaneously. Skin: Normal for age and race, grossly normal temperature and turgor. No acute rash. Neurologic: Alert and appropriate, no apparent acute deficits. Psychiatric: Mood and manner are appropriate. Grooming and personal hygiene are appropriate. Related Data Home Medications ?Medication ?Instructions ?Recorded ?Confirmed lancets 28 gauge (Tonio #100 ea 02/09/19 09/13/25 Lancets) aspirin 81 mg tablet,delayed 81 mg PO DAILY 05/17/19 09/14/25 release rosuvastatin 40 mg tablet See Rx Instructions .Route 07/27/24 09/14/25 .COMPLEX #90 tabs blood sugar diagnostic (FreeStyle #100 strips 09/28/24 09/13/25 Lite Strips) ferrous gluconate 324 mg (37.5 mg 324 mg PO DAILY #60 tabs 02/26/25 09/14/25 iron) tablet ibuprofen 600 mg tablet 600 mg PO Q6H PRN 02/26/25 09/14/25 metformin 500 mg tablet,extended See Rx Instructions .Route 02/26/25 09/14/25 release 24 hr .COMPLEX #360 tabs acetaminophen 500 mg capsule 500 mg PO Q6H PRN 05/16/25 09/14/25 omeprazole 20 mg capsule,delayed See Rx Instructions .Route 07/02/25 09/14/25 release .COMPLEX #90 caps carvedilol 12.5 mg tablet See Rx Instructions .Route 08/13/25 09/14/25 .COMPLEX #180 tabs losartan 100 mg tablet See Rx Instructions .Route 08/13/25 09/14/25 .COMPLEX #90 tabs cholecalciferol (vitamin D3) 125 125 mcg PO DAILY 08/22/25 09/13/25 mcg (5,000 unit) capsule magnesium/citrate/glyconate,maleate PO DAILY 08/22/25 09/13/25 tirzepatide 2.5 mg/0.5 mL 2.5 mg (0.5 mL) subcut QWEEK #2 mL 08/22/25 09/14/25 subcutaneous pen injector (Jennifer) amlodipine 5 mg tablet See Rx Instructions .Route 08/23/25 09/14/25 .COMPLEX #90 tabs bupropion HCl 150 mg 24 hr tablet, See Rx Instructions .Route 08/23/25 09/14/25 extended release .COMPLEX #90 tabs fluticasone propionate 50 2 spray intranasal DAILY #16 grams 09/10/25 09/14/25 mcg/actuation nasal spray,suspension (Flonase Allergy Relief) hydrocodone 10 mg-acetaminophen 1 tab PO Q6H PRN pain #10 tabs 09/13/25 09/14/25 325 mg tablet Previous Rx's ?Medication ?Instructions ?Recorded lancets 28 gauge (FreeStyle #100 ea 02/09/19 Lancets) rosuvastatin 40 mg tablet See Rx Instructions .Route 07/27/24 .COMPLEX #90 tabs blood sugar diagnostic (FreeStyle #100 strips 09/28/24 Lite Strips) ferrous gluconate 324 mg (37.5 mg 324 mg PO DAILY #60 tabs 02/26/25 iron) tablet metformin 500 mg tablet,extended See Rx Instructions .Route 02/26/25 release 24 hr .COMPLEX #360 tabs omeprazole 20 mg capsule,delayed See Rx Instructions .Route 07/02/25 release .COMPLEX #90 caps carvedilol 12.5 mg tablet See Rx Instructions .Route 08/13/25 .COMPLEX #180 tabs losartan 100 mg tablet See Rx Instructions .Route 08/13/25 .COMPLEX #90 tabs tirzepatide 2.5 mg/0.5 mL 2.5 mg (0.5 mL) subcut QWEEK #2 mL 08/22/25 subcutaneous pen injector (Jennifer) amlodipine 5 mg tablet See Rx Instructions .Route 08/23/25 .COMPLEX #90 tabs bupropion HCl 150 mg 24 hr tablet, See Rx Instructions .Route 08/23/25 extended release .COMPLEX #90 tabs fluticasone propionate 50 2 spray intranasal DAILY #16 grams 09/10/25 mcg/actuation nasal spray,suspension (Flonase Allergy Relief) hydrocodone 10 mg-acetaminophen 1 tab PO Q6H PRN pain #10 tabs 09/13/25 325 mg tablet Allergies Allergy/AdvReac Type Severity Reaction Status Date / Time latex Allergy Mild Itching Verified 09/14/25 12:39 atorvastatin AdvReac Intermediate myalgias Verified 09/14/25 12:39 lisinopril AdvReac Mild COUGH Verified 09/14/25 12:39 General Stated Complaint: Orthopedic BRAD: 3 Course Vital Signs Vital signs: Vital Signs Temperature 36.5 C 09/14/25 12:35 Pulse 77 09/14/25 12:35 Respiratory Rate 18 09/14/25 12:35 Blood Pressure 178/93 H 09/14/25 12:35 Pulse Oximetry 93 09/14/25 12:35 Temperature 36.5 C 09/14/25 12:35 Pulse 77 09/14/25 12:35 Respiratory Rate 18 09/14/25 12:35 Blood Pressure 178/93 H 09/14/25 12:35 Pulse Oximetry 93 09/14/25 12:35 Oxygen Delivery Method Room Air 09/14/25 12:35 Oxygen Flow Rate 0 09/14/25 12:35 Pain Level 9 09/14/25 12:35 Medical Decision Making Quality:SDOH Health Related Social Needs: Health related social needs house/econ circumstance Health related social needs details N/A PFSH All Active Problems (Updated 09/14/25 @ 15:20 by Morgan Weeks MD) Upper back pain on right side (Acute) Status post thoracotomy (Acute) Hemothorax (Acute) Iron deficiency anemia (Acute) Status post hemothorax Status post pneumothorax (Acute) Type 2 diabetes mellitus with diabetic neuropathy, unspecified (Acute ~2015) GERD (gastroesophageal reflux disease) (Chronic) LT PPI (off it +cough) Chronic cough (Chronic) PPI; H2 lori ineffective; see note 12/21/24 PND (post-nasal drip) (Acute) Left hip pain (Acute) Non-pressure chronic ulcer of other part of right foot with fat layer exposed (Acute ~08/22/24) [facility] Adnexal mass (Acute ~07/2024) R-08/2024 MRI describes as pedunculated fibroid Yearly [employer] visits recommended Facial skin lesion (Acute) Hypertriglyceridemia (Acute ~04/2023) Urge incontinence of urine (Acute ~06/2022) Uro Adjustment disorder with depressed mood (Acute ~02/2021) Coronary artery disease (Chronic ~06/2019) [facility] s/p NSTEMI Subclinical hypothyroidism (Chronic 10/02/13) 09/2013 Unspecified hereditary and idiopathic peripheral neuropathy (Chronic 02/09/12) B/L FEET Hyperlipidemia (Chronic 01/07/12) LDL <70 goal per cardiology 09/14/2019 Cardiac murmur (Chronic 09/27/17) ECHO 09/2017, mild LVH, mild mitral, preserved EF BMI 36.0-36.9,adult (Chronic 10/31/15) Pt lost 45lbs on the Omni diet. 2012. Regained in 2014. Pituitary microadenoma (Chronic ~08/2018) [facility] 08/2018, transphenoidal resection; Recommend annual MRIs (every ~January) Medical History Right-sided chest wall pain Pneumothorax ex vacuo Pleural effusion traumatic Hemothorax on right (~02/2025) traumatic Essential hypertension (07/26/13) Chronic ulcer of right foot with fat layer exposed (~02/2022) Facial rhytids 01/17/24 [facility] Common wart 01/17/24 [facility] Microscopic hematuria Uro Repeat UAs normal Hallux valgus Osteoarthritis Onychomycosis of toenail Right 2nd & 3rd toes Normal colonoscopy Osteomyelitis (~05/07/19) right foot, strept A and staph aureus 06/19/19 Diabetic Ulceration R Hallux, Cellulitis R Hallux ([facility] & ID managed) 04/06/25 f/u Weeks [facility] NSTEMI (non-ST elevated myocardial infarction) (~05/07/19) Cyst of left ovary (11/13/15) Hemorrhoids (01/07/12) Snoring Wedge pillow, elevate HOB, breathe rite strips, artificial saliva, position (side lying) 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 Uterine fibroids. Irreg menses. Nl EMBx. Colon polyps Hypercholesterolemia Benign essential hypertension Ovarian cyst 10/2015 L ovary 4x4.8cm. 03/2016 2x3x3 Diabetes mellitus Fibroid uterus Fundal [id number]. 2 smaller intramural fibroids. 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 Wilner Brice History of bronchoscopy (~02/2025) 02/20/2025 at [facility] by Dr. Wilner Brice History of thoracentesis (~01/2025) Status post coronary artery bypass grafting (07/17/19) x3 with left internal mammary artery to left anterior descending artery, a saphenous vein graft to the PDA and to the OM1 H/O cardiac catheterization 04/2019 [facility]- multivessel disease and preserved LVF function. EF 55-60% S/P cardiac catheterization (05/11/19) triple vessel disease, in need of CABG, delayed due to osteomyelitis, Status post transsphenoidal pituitary resection 08/24/2018 [facility] excision of sebaceous cyst L underarm. excision of ankle mass - benign Colonoscopy - IV Sedation (~2012) Reduction mammoplasty (~2000) Appendectomy Family History Mother , [place] at age 53. Hypertensive disorder, systemic arterial Diabetes Mental disorder Anxiety Depression Heart disease Father , CVA at age 57. Hemophilia Brother , CANCER & NV at age 40. Personal history of malignant neoplasm MALIGNANT ENCAPSULATED SLOW-GROWING TUMOR AFFECTING CHEST WALL Heart disease RADIATION INDUCED S/P CANCER DX Maternal Aunt Diabetes Multiple sclerosis Maternal Uncle Diabetes Paternal Uncle Hemophilia Social History Smoking/Tobacco Use Status: Never Smoking risk assessment performed?: Yes Alcohol Intake: never Drug use: Never Substance use type: does not use Adopted: No Caregiver/Support person: No Foster care: No Household members: significant other Housing: house Number of Children: 0 Communication Needs: Corrective Lenses Education Level: college Details: Bachelor's Do you need help understanding health information?: Rarely current occupation: Community Health Worker Pets and animals: Yes (one) Pets and animals: dog(s) Sexually active: Yes Do you think of yourself as: straight/heterosexual Current gender identity: female What is your relationship status?: living with partner How often do you talk on the phone with friends or family?: once per week How often do you get together with friends or relatives?: once per week How often do you attend christianity or sikhism services?: 4 or more times per year Do you belong to any clubs or organized social groups?: yes Panel score (0-1 are the most socially isolated patients): 3 What type of physical activity do you participate in: none Duration: decline to answer Frequency: decline to answer Joanne/Christianity: Orthodoxy Seatbelt use: always Helmet use: Yes (No reason) Helmet use: never Drive intox or ride w/intox haulpak driver: No Water heater temp set <120 deg: Yes Working smoke detector in home: Yes Fire extinguisher in home: No Carbon monox detector in home: No Firearms in home: No Do you feel safe at home: Yes Do you feel safe in your relationship?: Yes Victim of physical abuse: No Victim of emotional abuse: No Victim of sexual abuse: No Would you like helpful sources: No
--- NOTE | 2025-09-14 13:15 | DI.RAD_ITS ---
Exam(s) XR CHEST 2V PA LATERAL EXAM: XR CHEST 2V PA LATERAL CLINICAL HISTORY: Right upper posterior thoracic pain TECHNIQUE: 2D digital imaging was performed. Two views. COMPARISON: CT CT CHEST WO from 02/15/[address] CHEST W from 02/18/2025 CR XR CHEST 2V PA LATERAL from 05/01/[address] CHEST W from 05/31/2025 CR,XR XR CHEST 2V PA LATERAL from 08/31/2025 FINDINGS: HEART: Normal size. Aorta: Not dilated. Status post CABG. PULMONARY VASCULATURE: Normal. MEDIASTINUM: Unremarkable. LUNGS: Clear. PLEURAL SPACE: Pleural thickening again noted in the posterior aspect of the right chest. There is mild right-sided volume loss. No pneumothorax. BONE:Unremarkable for age. Sternal wires. SOFT TISSUES: Unremarkable. IMPRESSION: Stable appearance right upper posterior pleural thickening. No new abnormalities are identified. DATA REPOSITORY: RADIATION DOSE DELIVERED:
[2025-09-14 15:28] VITALS: BP 168/96; PULSE 68; O2SAT 99
[2025-09-14] MEDS: Lidocaine 5% Patch 1 PATCH TP (16:05)
== END 2025-09-14 13:12 | disposition home or self-care (01) ==
PROVIDERS: Emergency Provider Emergency Medicine; PCP Nurse Practitioner Adult Health
DX: M54.9 Dorsalgia, unspecified (principal)
CPT/HCPCS: 99283 ×2; 71046

== ENCOUNTER 2025-10-01 13:58 | Outpatient (RCR) | payer OTHER, SELFPAY | END 2025-10-21 23:59 | disposition home or self-care (01) | LOC: PRC 13:58 | PROVIDERS: PCP Nurse Practitioner Adult Health; Visit Provider Internal Medicine Pulmonary Disease | DX: I25.10 Atherosclerotic heart disease of native coronary artery without angina pectoris (principal); Z51.89 Encounter for other specified aftercare; Z95.1 Presence of aortocoronary bypass graft | CPT/HCPCS: 94626 ==